=== PATIENT | male | born 1960 | race Caucasian/White ===

== ENCOUNTER 2025-01-06 13:01 | Inpatient (IN) | payer MEDICARE, BC, SELFPAY ==
[2025-01-06] VITALS (38 sets, daily range): BP systolic 139–245; BP diastolic 72–178; BMI 36.4; BMI 35.2
[2025-01-06 08:42] LABS: % Basophils 0.5 % (0-2); % Immature Granulocytes 0.4 % (0-0.5); % Lymphocytes 6.7 % (20.5-51.1); % Monocytes 6.7 % (1.7-9.3); % Neutrophils 83.7 % (42.2-75.2); Absolute Basophils 0.1 10^3/uL (0-0.2); Absolute Eosinophils 0.2 10^3/uL (0-0.7); Absolute Immature Granulocytes 0.1 10^3/uL (0-0.05); Absolute Lymphocytes 0.8 10^3/uL (1.2-3.4); Absolute Monocytes 0.8 10^3/uL (0.1-0.6); Absolute Neutrophils 9.4 10^3/uL (1.4-6.5); Mean Corp Hgb Conc. 34.9 g/dL (33.0-37.0); Mean Platelet Volume 10.6 fL (7.4-10.4); Nucleated Red Blood Cells % 0 % (-); Platelet Count 381 10^3/uL (130-400); Red Cell Dist. Width 13.3 % (11.5-14.5); White Blood Cell Count 11.2 10^3/uL (4.8-10.8)
[2025-01-06 09:10] LABS: ALT (SGPT) 17 U/L (0-50); AST (SGOT) 21 U/L (17-59); Alkaline Phosphatase 103 U/L (38-126); Blood Urea Nitrogen 13 mg/dl (9-20); Calcium 8.8 mg/dl (8.4-10.2); Carbon Dioxide 29 mmol/L (22-30); Chloride 105 mmol/L (98-107); Estimated Creatinine Clearance 86 ml/min; Glucose 145 mg/dl (70-99); Potassium 3.6 mmol/L (3.5-5.1); Sodium 138 mmol/L (135-145); Total Protein 5.5 g/dl (6.3-8.2); eGFR > 60.00
[2025-01-06 09:22] LABS: Troponin I 0.029 ng/ml
--- NOTE | 2025-01-06 10:41 | ED.GENMED ---
History of Present Illness
General
Chief Complaint: Chest Pain
Source: patient and spouse
Time Seen by Provider: 01/06/25 08:10
History of Present Illness
History of Present Illness:
This patient is a 64-year-old male who states that he has had progressive bilateral lower extremity into the last few months. He was prescribed Lasix but is admittedly noncompliant with this. He also admits intermittent compliance with his other
medications. His baseline blood pressure is measured at home is around 170s. 2 nights ago, he developed discomfort at the left scapula/lateral chest area. He describes it as 'sharp', lasted some time (cannot be more specific) and then resolved
completely. This was not associated with diaphoresis, dyspnea, neck pain, or other complaints. He has not had pain since that time. However, last night he reportedly seemed more tired than usual and had what he describes as a 'hot flash'. His
witnessed this and states that he appeared restless with a red warm face. Patient is now asymptomatic. He is here at the urging of his family members. He denies history of coronary disease.
Past History
Past History
ED Past Medical History: GERD, HTN, Hypercholesterolemia and NIDDM
ED Past Surgical History: Cholecystectomy and Other (Umbilical herniorrhaphy)
Social History
Tobacco: Former smoker
Alcohol: None
Drug: None
Personal:
Living: with family
Employment: Retired
Phy Exam
Physical Exam
Physical Exam:
GENERAL: Alert , in no apparent distress
EYE: pupils equal and reactive
NECK: Supple, no significant adenopathy.
ENT: o/p clr, mmm.
CARDIAC: Regular rate and rhythm .
LUNGS: Clear breath sounds bilaterally, no acute respiratory distress, no wheezes/rales/rhonchi
ABDOMEN: Soft, without focal tenderness, no r/g, no cvat
NEUROLOGICAL: Alert and oriented, no focal neuro deficits
SKIN: Warm and dry, skin intact.
MUSCULOSKELETAL: 1+ bilateral lower extremity edema, well perfused.
PSYCH: Normal and appropriate interaction.
Course
Orders/Labs/Results
Orders:
Orders
01/06/25 07:55
Electrocardiogram (*1) Urgent
Reason for Study: Chest Pain
EKG- Treatment ONCE
01/06/25 08:31
CMP [Comprehensive Metabolic Panel] Urgent
Complete Blood Count/With Diff Urgent
Troponin I Urgent
01/06/25 10:41
CT Chest Angio W/wo Iv Contras Urgent
Comment:
Reason For Exam: chest/back pain, htn, consider dissection
01/06/25 11:35
NT-proBNP Urgent
01/06/25 11:36
Furosemide [Lasix] 40 mg IV NOW STA
01/06/25 11:50
Metoprolol [Lopressor] 5 mg IV NOW STA
01/06/25 11:52
Aspirin 325 mg PO NOW STA
01/06/25 12:02
Add On- LAB Urgent
Tests Added?: TSH w/Reflex
Abnormal Lab Results
01/06/25
08:31
WBC 11.2 H 10^3/uL
(4.8-10.8)
MPV 10.6 H fL
(7.4-10.4)
Abs Immat Gran (auto) 0.1 H 10^3/uL
(0-0.05)
Absolute Neuts (auto) 9.4 H 10^3/uL
(1.4-6.5)
Absolute Lymphs (auto) 0.8 L 10^3/uL
(1.2-3.4)
Absolute Monos (auto) 0.8 H 10^3/uL
(0.1-0.6)
Neutrophils % 83.7 H %
(42.2-75.2)
Lymphocytes % 6.7 L %
(20.5-51.1)
Glucose 145 H mg/dl
(70-99)
Total Protein 5.5 L g/dl
(6.3-8.2)
Albumin 3.0 L g/dl
(3.5-5.0)
01/06/25 08:31
01/06/25 08:31
Vital Signs
Initial and Last Documented VS:
Initial Vital Signs
Temp Pulse Resp BP Pulse Ox
98.4 F 91 16 245/120 98
01/06/25 07:52 01/06/25 07:52 01/06/25 07:52 01/06/25 07:52 01/06/25 07:52
Last Documented Vital Signs
Temp Pulse Resp BP Pulse Ox
98.4 F 88 23 212/115 98
01/06/25 07:52 01/06/25 12:00 01/06/25 10:45 01/06/25 12:00 01/06/25 07:52
Update Note
Update Note:
Patient presents to the Emergency Department with ___chest and back pain
Number and Complexity of Problems Addressed at the Encounter
� Chronic conditions affecting care:
� Acute Exacerbation and/or Progression of Chronic Illness:
� Differential Diagnosis includes: But not limited to ACS, dissection, muscular pain, etc.
Amount and/or Complexity of Data to be Reviewed and Analyzed
� I performed an independent evaluation of and my interpretation is:
EKG: Read by me, normal sinus rhythm, LVH, no acute ischemia
CT:Jerry Martinez no dissection or central PE. Moderate left effusion, SSA or pneumonia LLL.
Xrays:
Laboratory Studies: Troponin 0.029 nonspecific, mild hyperglycemia
Other:
� Review of other/old records reveals:
� Clinical information was obtained by an independent historian: who is bedside
� Prescriptions/Medications Considered but not given:
� Further testing considered but not performed:
Risk of Complications and/or Morbidity or Mortality of Patient Management
� Social determinants of health affecting care:
� Discussion with other providers (PCP, Hospitalists, Consultants, etc):
� Escalation of care including admission/observation vs risk of discharge considered: 11:50 AM reassessment patient returned from CAT scan and noted to be tachypneic with mild hypoxia at 88% on room air. Nasal cannula applied
and pulse ox now within normal limits. Discussed with patient his findings including coronary artery calcifications, left ventricular hypertrophy, and new moderate pleural effusion. He is obviously a poorly controlled hypertensive, unclear if he
has had an extensive workup regarding hypertension in the past. Effusion could be infectious or malignant although I suspect more likely transudative and perhaps related to heart failure. Lasix ordered, aspirin ordered, Lopressor for blood
pressure ordered will reassess, hospitalist aware for admission, family updated
ED Attending Note
-
Portions of this chart may have been created with voice recognition software.� Occasional wrong word or��sound alike� substitutions may have occurred due to the inherent limitations of voice recognition software.
Discharge Plan
Departure
Patient Disposition: Admit
Date of Disposition: 01/06/25
Time of Disposition: 12:09
Presentation/result/management discussed w/ accepting MD/DO: Hospitalist
Prescriptions:
No Action
losartan [Cozaar] 100 MG tablet
100 mg PO DAILY
Mounjaro 10 mg/0.5 mL Pen Injector
10 mg SC WE
indomethacin 25 mg Capsule
25 mg PO BID
solifenacin [Vesicare] 5 mg Tablet
5 mg PO DAILY
rosuvastatin 10 mg tablet
10 mg PO DAILY
metoprolol succinate 50 mg tablet extended release 24 hr
50 mg PO DAILY
meloxicam 15 mg tablet
15 mg PO DAILY
metformin 1,000 mg tablet
1,000 mg PO BID
Referrals:
Nova Torres MD [Family Provider, Family Practice]
Interventions
Interventions:
*Risk Screen - Suicide Last Done: 01/06/25 07:52
*General Assessment Last Done: 01/06/25 08:20
*Neglect/Abuse Screening Last Done: 01/06/25 07:52
*ED- Fall Risk Assessment Last Done: 01/06/25 08:20
*ED COVID-19 Vaccine History Last Done: 01/06/25 08:20
ED- Cardiac Assessment Last Done: 01/06/25 08:29
Discharge Date and Time
Print Language: UZBEK
[2025-01-06] MEDS: LASIX 40 MG IV ×2 (11:56→16:42)
[2025-01-06] MEDS: ASPIRIN 325 MG PO (11:56)
[2025-01-06] MEDS: LOPRESSOR 5 MG IV (12:00)
--- NOTE | 2025-01-06 12:34 | HPS.HSE ---
Family Physician
-
Family Physician: Nova Torres MD
Chief Complaint
-
Chest / Back Pain and Uncontrolled Blood Pressure
History of Present Illness
Patient is a 64 y/o male past medical history of hypertension, hyperlipidemia, and diabetes mellitus who presents with chest/back pain and uncontrolled blood pressure. Patient reports worsning lower extremity for the past several months. He report
his blood pressure has not been well controlled. He notes his PCP started him on losartan/HCTZ but he only took it one time as it made him urinate too much. A few days ago he had an episodes of left chest / back pain which lasted about an hours.
Today he developed worsening shortness of breath.
Medical History
Past Medical History
Past Medical History: Reports Other
Additional Past Medical History:
Essential Hypertension
Hyperlipidemia
Diabetes Mellitus, Type II
Obesity due to Escess Calories
Past Surgical History: Reports Other
Additional Past Surgical History:
Cholecystectomy
Hernia Repair
Social History
Tobacco: Former Smoker (Previous Cigars)
Alcohol: None
Personal:
Living: With Family
Family History
Family History: Not pertinent
Allergies / Home Medications
Allergies reflects when Allergies were last updated in [facility].
Home Medications with original date entered in [facility]
Allergy/Medication List:
Allergies
Allergy/AdvReac Type Severity Reaction Status Date / Time
No Known Allergies Allergy Verified 01/06/25 07:55
Home Medications
meloxicam 15 mg tablet 15 mg PO DAILY 01/06/25
metformin 1,000 mg tablet 1,000 mg PO BID 01/06/25
metoprolol succinate 50 mg tablet,extended release 24 hr 50 mg PO DAILY 01/06/25
rosuvastatin 10 mg tablet 10 mg PO DAILY 01/06/25
solifenacin 5 mg tablet (Vesicare) 5 mg PO DAILY 01/06/25
tadalafil 5 mg tablet 5 mg PO DAILY 01/06/25
tirzepatide 10 mg/0.5 mL subcutaneous pen injector (Mounjaro) 10 mg SC WE 01/06/25
Review of Systems
-
History Source: Patient
A 12 point ROS was completed and negative except as noted: Yes
Constitutional: Denies Fever or Chills
Respiratory: Reports See HPI
Cardiac: Reports See HPI
Abdomen/GI: Denies Abdominal Pain, Nausea, Vomiting, Diarrhea or Constipated
: Reports Other (Urinary Hesitancy)
Physical Exam
Vital Signs
Vital Signs
Temp Pulse Resp BP Pulse Ox
98.4 F 88 23 212/115 98
01/06/25 07:52 01/06/25 12:00 01/06/25 10:45 01/06/25 12:00 01/06/25 07:52
Physical Exam
General: Comfortable, Conversant and Obese
HEENT: NormoCephalic, Anicteric, Moist mucous membranes, Atraumatic and Oxygen (Nasal Cannula)
Respiratory: Clear, Non Labored Respirations and Decreased Breath Sounds (Left base)
Cardiac: S1/S2, Regular Rhythm and Murmur
GI: Soft, Non Tender and Other (Protuberant)
Rectal: Deferred by Provider
Genito-urinary: Clear Urine
Musculoskeletal: No Clubbing, No Cyanosis and Other (+4 Pitting Edema bilateral lower extremities)
Skin: Warm and Dry; No Rash
Neuro: Awake, Alert, Oriented and Nonfocal/grossly intact
Psych: Calm
Laboratory Results
-
01/06/25 08:31
01/06/25 08:31
Laboratory Results
Total Bilirubin 1.0 mg/dl (0.2-1.3) 01/06/25 08:31
AST 21 U/L (17-59) 01/06/25 08:31
ALT 17 U/L (0-50) 01/06/25 08:31
Alkaline Phosphatase 103 U/L (38-126) 01/06/25 08:31
Troponin I 0.029 ng/ml 01/06/25 08:31
Data Reviewed
-
CT Scan: Report Reviewed by me
Lab Data: Labs Reviewed by me
Impression/Plan
-
Acute Heart Failure, unknown type
-Consult Cardiology
-Continue Lasix 40mg IV Daily
-Check Echocardiogram
-Monitor Is&Os and Daily Weights
Hypertensive Emergency
-Start nitroglycerin infusion
-Resume losartan 100mg Daily
-Continue metoprolol succinate 50mg Daily as prior to admission
-Troponin is borderline - Continue to trend
-Check TSH
Left Pleural Effusion
-Consult Interventional Radiology for diagnostic and therapeutic thoracentesis
Diabetes Mellitus, Type II
-Check HgbA1c
-Hold metformin
-Monitor sugars and continue coverage insulin
Obesity due to Excess Calories
-Encourage weight loss
-Affects all aspects of care
Obstructive Sleep Apnea
-Continue CPAP
Urinary Hesitancy, suspect BPH
-Start Flomax
-Monitor bladder scans
DVT proph: Lovenox
Code Status: Full Code
[2025-01-06] MEDS: NITROGLYCERIN PREMIX 250 IV (12:39)
--- NOTE | 2025-01-06 12:56 | W.PN.UPDATE ---
Update Note
Progress Note Update
This is an addendum to the H&P written by Crystal Garcia on 01/06/2025.� Patient seen and examined independently with PA.
64-year-old male past medical history of hypertension, diabetes, hypercholesteremia, GERD, presenting with left scapular/lateral chest discomfort.� Also progressive lower extremity edema the past few months.��He was previously on Losartan and
started on HCTZ but stopped taking it few months ago due to increased urination.�
Initial blood pressure 245/120.
EKG shows normal sinus rhythm, LVH, no ischemic changes.
Troponin of 0.029.
CTA chest shows no aortic dissection or pulmonary embolism.� There is moderate left pleural effusion.
Patient with hypertensive emergency associate with chest pain and evidence of moderate left pleural effusion likely secondary to heart failure.
Patient was given 325 mg aspirin, 40 IV Lasix, 5 mg Lopressor with improvement in blood pressure to 212/115.�
Start nitroglycerin drip and resume Losartan.�Cardiac BNP pending.� Trend troponins.� Check echocardiogram.� Continue Lasix.� IR consulted for thoracentesis.� Cardiology consulted.
[2025-01-06 13:09] LABS: NT-proBNP 7390 pg/ml; Troponin I 0.027 ng/ml
--- NOTE | 2025-01-06 13:11 | CON.CAR ---
Addendum entered and electronically signed by Luann Ferrara MD 01/06/25 15:43:
I saw and examined the patient.
The PRINCIPAL TRAINER's note was reviewed and I agree with the note.
Comment: 64 yo male (patient of Dr. Raines) with difficult to control hypertension, non-insulin dependent diabetes mellitus, h/o 'right eye stroke' likely retinal artery occlusion, hyperlipidemia, coronary artery calcification on CT scan, JOHNSON,
GERD, obesity and possible renal artery stenosis (abnormal Doppler velocities, artifact on CT, negative MRA), who presents to the ER with c/o left scapular and chest pain with increased LE edema x 2-3 months. He is noted to have BP c/w hypertensive
emergency and acute decompenstated heart failure with unknown ef. It seems he has had multiple medications adjustments without acheiving adequate bp control. He has noted le edema but only began to feel sob today. He wears a cpap so denies orthopnea
or pnd. On exam, he is alert and oriented x 3, JVP is up to the level of the earlobe at 90 degrees, lungs are decreased on the right less than the left abdomen is obese and protuberant, extremities are warm but 2+ pitting edema up into the legs.
EKG is normal sinus rhythm with LVH and strain pattern. Chest CT examined shows impressively large left pleural effusion with compressive atelectasis, labs show elevated proBNP at 7390, troponin 0.029-0.027, creatinine 1.1. Overall, he presents in
acute heart failure with unknown ejection fraction, hypertensive emergency, obesity, diabetes. The source of his decompensated heart failure is likely his labile hypertension that has been poorly controlled. Will transition metoprolol to
carvedilol. Continue nitro drip for now, this can be transition to GDMT as indicated pending echocardiogram result. Agree with thoracentesis today for not only symptomatic relief but diagnostic relief. Will also update his renal artery ultrasound
given the report in the past, this may be affecting her ability to control his blood pressure. Case management consult for GDMT pricing. Will place heart failure team education consult. Overall I told him to expect all of his medications to
change, lifestyle must change to include daily weights, sodium restriction and fluid restriction. Will follow.
Original Note:
Consultation
Consultation Request
Date/Time Consultation Requested: 01/06/25 12:30p
Date/Time Consultation Performed: 01/06/25 2p
Requesting Provider: Crystal Barr PA-C
Performing Provider: JENN Jones for Dr. Ferrara
Reason for Consultation: HTN emergency, LE edema
Medical History
-
Chief Complaint: back pain, LE edema
History of Present Illness:
Mr. Martinez is a 64 yo male (patient of Dr. Raines) with difficult to control hypertension, non-insulin dependent diabetes mellitus, h/o 'right eye stroke' likely retinal artery occlusion, hyperlipidemia, coronary artery calcification on CT scan, JOHNSON,
GERD, obesity and possible renal artery stenosis (abnormal Doppler velocities, artifact on CT, negative MRA), who presents to the ER with c/o left scapular and chest pain with increased LE edema x 2-3 months. HTN emergency on arrival 245/120 in the
ER, now on IV NTG drip admitted to hospitalist service. CT chest with moderate left pleural effusion, no dissection, no PE. We are consulted for HTN emergency and acute HFpEF. He was last seen by Dr. Raines in 04/2022, lost to follow up. His PCP
has been adjusting his BP medications. 10/2024 she started Losartan/HCTZ 100mg/25mg but he only took one dose then stopped HCTZ and resumed Losartan 100mg daily. She also started Toprol 50mg daily.
Past Medical History
Past Medical History: Other (as above)
Past Surgical History: Cholecystectomy and Other (deviated septum, hernia)
Social History
Tobacco: Former Smoker
Alcohol: None
Living: With Family
Employment: Retired
Family History
Family History: Reviewed & Not Pertinent
Allergies / Home Medications
Allergy/AdvReac Type Severity Reaction Status Date / Time
No Known Allergies Allergy Verified 01/06/25 07:55
�Medication �Instructions �Recorded �Confirmed �Type
meloxicam 15 mg tablet 15 mg PO DAILY 01/06/25 01/06/25 History
metformin 1,000 mg tablet 1,000 mg PO BID 01/06/25 01/06/25 History
metoprolol succinate 50 mg 50 mg PO DAILY 01/06/25 01/06/25 History
tablet,extended release 24 hr
rosuvastatin 10 mg tablet 10 mg PO DAILY 01/06/25 01/06/25 History
solifenacin 5 mg tablet (Vesicare) 5 mg PO DAILY 01/06/25 01/06/25 History
tadalafil 5 mg tablet 5 mg PO DAILY 01/06/25 01/06/25 History
tirzepatide 10 mg/0.5 mL 10 mg SC WE 01/06/25 01/06/25 History
subcutaneous pen injector
(Sanjuana)
Review of Systems
-
History Source: Patient
All other systems: Negative unless noted
Physical Exam
Vital Signs
Temp Pulse Resp BP Pulse Ox
98.4 F 88 23 212/115 98
01/06/25 07:52 01/06/25 12:00 01/06/25 10:45 01/06/25 12:00 01/06/25 07:52
Lab Results
01/06/25 08:31
01/06/25 08:31
Troponin I 0.027 ng/ml 01/06/25 12:01
Vbp-L-Vujvpecoyin Pept 7390 pg/ml 01/06/25 12:01
Physical Exam
General: Well Developed, Well Nourished and No Apparent Distress
HEENT: Normocephalic, Anicteric and Moist Mucous Membranes
Respiratory: Crackles (right base), Non Labored Respirations and Other (diminished left middle and base)
Cardiac: S1/S2, Regular Rhythm and Peripheral Edema (+2 pitting b/l feet/LE)
Breast: Deferred by me
GI: Soft, Non Tender and Normal Bowel Sounds
Rectal: Deferred by Provider
Genito-urinary: No Costovertebral Tender and Clear Urine
Musculoskeletal: No Clubbing and No Cyanosis
Skin: Warm and Dry
Neuro: AO x 3
Psych: Calm
Impression / Plan
-
HTN emergency - acute.
- continue IV NTG drip today.
- IV Lasix 40mg BID.
- start Coreg 12.5mg BID, continue Losartan 100mg daily, stop Toprol 50mg daily.
- check renal artery u/s.
- check echo.
CHF - acute, HFpEF based on echo in 2020 with EF 55-60%
- IV Lasix 40mg BID.
- daily weights.
- check echo.
- if EF reduced, then will switch Losartan to Entresto.
- case management to hull [id number].
HLD - continue Crestor.
JOHNSON - stable on CPAP, continue.
DM - on Mounjaro for 1 month, dosed today.
- per hospitalist.
Data Reviewed
-
EKG: Report Reviewed by me (SR 91 bpm LVH with repolarization abn)
CT Scan: Report Reviewed by me (chest angio: No evidence of thoracic aortic dissection, no PE, moderate left pleural effusion, Airspace consolidation within LLL and lingular segment, which may be related to compressive atelectasis or pneumonia,
Moderate coronary arterial calcification)
Medical Tests (Nuc Med, Echo etc): Report Reviewed by me (echo 08/2020: EF 55-60%, mild cLVH, no valve disease, normal pasp)
Labs: Labs Reviewed by me
Old Records: Reviewed
[2025-01-06 13:48] LABS: LDH 229 U/L (120-246)
--- NOTE | 2025-01-06 15:07 | EDRN ---
Call to [facility]_ they tell me to send the pt to his room and they will call later for him.
[2025-01-06 15:27] LABS: INR 1.04; PT 14.1 Sec (11.4-14.6)
--- NOTE | 2025-01-06 15:36 | RESPNOTE ---
patient seen for cpap waiver. currently cpap machine at home, spouse to return home around dinner to pick up truck driver and bring in for use. patient agreeable to waiver, to be signed when machine is present.
--- NOTE | 2025-01-06 16:03 | CM ---
Priced the following medications thru insurance, [facility]/ [phone].
Entrestro- $10/mo
Farxiga- $10/mo
Jardiance- $10/mo
TT to JENN to update
--- NOTE | 2025-01-06 16:15 | PTCARENOTE ---
Pt arrived from ER to IVU approx 1500. Pt denies any chest discomfort at this time. BP elevated, pt on NTG which is being titrated to keep SYS BP < 160. NTG received on 25 mcg/min, presently at 35 mcg/min. Echo done at bedside. PT is SR as per
monitor. O2 2lnc, O2 sat=95%. L lung sounds are diminished on L side. Lasix given as ordered, and pt voided mod amts of yellow urine. Pt able to ambulate to chair with min assistance. Pt to have a L thoracentesis this evening in IR. Call valerio at
pt's side.
[2025-01-06 16:46] LABS: Glucose - Point of Care 107 mg/dl (70-99)
[2025-01-06] MEDS: NOVOLOG FLEXPEN-LOW RESISTANCE SC (16:49)
--- NOTE | 2025-01-06 18:55 | PTCARENOTE ---
L thoracentesis not done this evening yet. IR called and recording states that they are now closed. Dr Salas updated and she said that it will be done tomorrow, and pt can eat his dinner. His dinner heated up for him and pt ate 100%. NTG drip
increased to 50 mcg/min, titrating to keep sys BP <160. O2 sat= 94% on 2L nc, HR 91 SR. Pt voiding yellow urine in urinal. Pt's updated also. Call valerio at pt's side.
[2025-01-06] MEDS: LOVENOX 40 MG SC (19:00)
[2025-01-06] MEDS: COREG 12.5 MG PO (19:46)
[2025-01-06] MEDS: TYLENOL 1000 MG PO (20:37)
[2025-01-06 22:42] LABS: Glucose - Point of Care 137 mg/dl (70-99)
--- NOTE | 2025-01-06 22:47 | PTCARENOTE ---
Received patient at change of shift. SR on the monitor, HR in the 80s. Nitro running as per protocol, see documentation. Patient complains of 2/10 neck pain, LEARNING SOLUTIONS SPECIALIST notified, Tylenol ordered and administered. CPAP on overnight. Call vaelrio within reach.
[2025-01-07] VITALS (32 sets, daily range): BP systolic 88–173; BP diastolic 55–93; BMI 35.4
[2025-01-07] MEDS: TYLENOL 650 MG PO ×2 (02:17→10:15)
[2025-01-07 03:35] LABS: ALT (SGPT) 16 U/L (0-50); AST (SGOT) 20 U/L (17-59); Albumin 2.7 g/dl (3.5-5.0); Alkaline Phosphatase 90 U/L (38-126); Blood Urea Nitrogen 18 mg/dl (9-20); Calcium 8.5 mg/dl (8.4-10.2); Carbon Dioxide 27 mmol/L (22-30); Chloride 102 mmol/L (98-107); Direct Bilirubin 0.4 mg/dl (0.0-0.4); Estimated Creatinine Clearance 67 ml/min; Glucose 145 mg/dl (70-99); HDL Cholesterol 30 mg/dl; LDL Cholesterol, Calculated 79 mg/dl; Magnesium 1.7 mg/dl (1.6-2.3); Potassium 3.5 mmol/L (3.5-5.1); Sodium 135 mmol/L (135-145); Total Bilirubin 1.2 mg/dl (0.2-1.3); Total Cholesterol 130 mg/dl (50-199); Total Protein 4.9 g/dl (6.3-8.2); Triglyceride 105 mg/dl (10-149); Very Low Density Lipoprotein 21 mg/dl (0-30); eGFR 55.43
[2025-01-07 09:19] LABS: Body Fluid pH 7.47
[2025-01-07 09:37] LABS: Body Fluid Amylase 40 U/L; Body Fluid Glucose 142 mg/dl; Body Fluid LDH 414 U/L; Body Fluid Protein 3.2 g/dl; Body Fluid Triglycerides < 30 mg/dl
[2025-01-07 10:04] LABS: Body Fluid Mononuclear 52.5 %; Body Fluid Polymorphonuclear 47.5 %; Body Fluid WBC 6069 /CUMM
[2025-01-07 10:06] LABS: Glycohemoglobin (HgbA1c) 6.9 % (4.0-5.6)
[2025-01-07 10:13] LABS: Body Fluid Second Tech AMA
[2025-01-07] MEDS: CRESTOR 10 MG PO (10:14)
[2025-01-07] MEDS: FLOMAX 0.4 MG PO (10:15)
[2025-01-07] MEDS: LOW STRENGTH ASPIRIN 81 MG PO (10:15)
[2025-01-07] MEDS: COREG 12.5 MG PO ×2 (10:15→11:38)
[2025-01-07 10:22] LABS: Glucose - Point of Care 125 mg/dl (70-99)
[2025-01-07] MEDS: NOVOLOG FLEXPEN-LOW RESISTANCE SC ×2 (10:22→12:33)
--- NOTE | 2025-01-07 11:06 | W.PN.HOSP.TC ---
Addendum entered and electronically signed by Cuong Mehta MD 01/07/25 13:15:
Addendum
Suraj
Could be post renal or renal
He received IV dye
Will hold Lasix, Losartan for now
will check bladder scan
recheck BMP in am
End
Original Note:
Today's Communication/Plan
-
Will add melatonin for HS PRN
Titrate up oral BP medications to wean off nitro gtt
Assessment / Plan
Assessment / Plan
Physical Exam
General: Comfortable, Conversant and Obese
HEENT: Normocephalic, Anicteric, Moist mucous membranes, Atraumatic and Oxygen (Nasal Cannula)
Respiratory: Clear, Non Labored Respirations and better Breath Sounds left side.
Cardiac: S1/S2, Regular Rhythm and Murmur
GI: Soft, Non Tender and Other (Protuberant)
Genito-urinary: Clear Urine
Musculoskeletal: No Clubbing, No Cyanosis and Other (+4 Pitting Edema bilateral lower extremities)
Skin: Warm and Dry; No Rash
Neuro: Awake, Alert, Oriented and Nonfocal/grossly intact
Psych: Calm
# Acute new onset Heart Failure with preserved EF
-Continue Lasix 40mg IV to BID
- Echo LVH with LVEF 55 %.
-Monitor Is&Os and Daily Weights
Appreciate cardiology input
# Hypertensive Emergency
- to try to wean off nitroglycerin infusion
-Resumed losartan 100mg Daily
-Changed to Coreg, increase dose
- Normal TSH
- Add PRN hydralazine
# Left Pleural Effusion
- s/p 2 liters thoracentesis, no Pneumothorax post procedure. Good air on auscultation.
Diabetes Mellitus, Type II
c/w current regimen
HgbA1c 6.9
-Hold metformin
Patient is recently on Mounjaro and lost weight
-Monitor sugars and continue coverage insulin
# Diabetic neuropathy
#Advanced osteoarthritis, mostly left knee. Patient was taking meloxicam daily for left knee prior to planned surgery/replacement per orthopedic
Advised to admit avoid nonsteroidal anti-inflammatory drugs due to tendency for uncontrolled blood pressure and sodium retention.
#Obesity due to Excess Calories
-Encourage weight loss
Patient is recently on Mounjaro and lost weight , he denies GI symptoms, reported lost 10 Ib.
Obstructive Sleep Apnea
-Continue CPAP
Urinary Hesitancy,
He follows with urologist.
- Started on Vesicare
-Monitor bladder scans
DVT proph: Lovenox
Code Status: Full Code
Total time spent to see the patient, examine the patient, review data and lab results, discuss treatment plan with patient and nursing staff around 55 minutes
Anticipated Discharge: 24 - 48 hours
Subjective/Interval History
-
Date of Service: January 07, 2025
No chest pain
No sob
No abd pain
Objective Data
-
Labs:
Laboratory Results
01/07/25
02:50
Sodium 135
Potassium 3.5
Chloride 102
Carbon Dioxide 27
BUN 18
Creatinine 1.4 H
Glucose 145 H
Calcium 8.5
Total Bilirubin 1.2
AST 20
ALT 16
Alkaline Phosphatase 90
Vital Signs:
Vital Signs
Temp Pulse Resp BP Pulse Ox
98 F 86 16 151/67 92
01/07/25 08:15 01/07/25 10:15 01/07/25 08:45 01/07/25 10:11 01/07/25 10:26
I&O
01/06/25 01/07/25 01/08/25
06:59 06:59 06:59
Intake Total 403.8 / 403.8 400 / 400
Output Total 3245 / 3245 250 / 250
Balance -2841.2 / -2841.2 150 / 150
--- NOTE | 2025-01-07 13:05 | CM ---
CM following for DC planning needs.
Met w/ patient at bedside to complete initial assessment.
Pt. resides w/ spouse in a private, [facility]. Pt. is functionally indep. w/ ADLs, mobility without the use of any assisted device.
Pt. has CPAP at home, supplied by [facility].
Pt. has RX plan and uses [facility] for prescription needs.
Reviewed estimated cost of Eliseo Escobedo + Entresto. Pt. aware and agreeable to cost.
Advised him to check with MD regarding necessity of these medications.
Antic. DC to home without needs once medically stable.
CM to follow.
--- NOTE | 2025-01-07 13:12 | W.PN.CD ---
Addendum entered and electronically signed by Luann Ferrara MD 01/07/25 15:15:
I saw and examined the patient.
The MANUFACTURING MECHANIC's note was reviewed and I agree with the note.
Comment: He is feeling better after thoracentesis. He does have a slightly PAN and has not urinated--lasix was held this am. On exam, elevated jvp, lungs bibasilar rales, 2+ pitting edema. HTN emergency improving, losartan h for PAN, nitro gtt
weaning off, continue Coreg, eventual GDMT. HFpEF acute, remains massively volume overloaded, lasix this afternoon. PAN; likely due to contrast, ?urinary retention. Bladder scan underway.
Will follow.
Original Note:
Today's Communication / Plan
-
continue IV Lasix, monitor daily weights.
wean IV NTG drip.
Impression / Plan
-
HTN emergency - acute on chronic HTN.
- improved with meds. wean down NTG drip.
- continue IV Lasix 40mg BID.
- continue Coreg increased to 25mg BID today.
- Losartan on hold due to elevated renal function.
- renal artery u/s w/o stenosis.
- echo 01/06/25 EF 55%, moderate cLVH.
HFpEF - acute on chronic.
- continue IV Lasix 40mg BID.
- weight down 8 lbs overnight, continue to monitor.
- echo EF 55%, mild cLVH.
- SGLT2i cost is $10, will start when renal function improved.
Pleural effusion - left s/p thoracentesis with 2L removed.
HLD - continue Crestor.
JOHNSON - stable on CPAP, continue.
DM - on Mounjaro for 1 month, dosed today.
- per hospitalist.
Physical Exam
Vital Signs/Labs
Vital Signs
Temp Pulse Resp BP Pulse Ox
98.7 F 78 16 128/59 93
01/07/25 11:50 01/07/25 13:00 01/07/25 11:50 01/07/25 13:00 01/07/25 11:50
01/06/25 01/07/25 01/08/25
06:59 06:59 06:59
Actual Weight 253 lb 12.033 oz
01/06/25 08:31
01/07/25 02:50
PT 14.1 Sec (11.4-14.6) 01/06/25 15:02
INR 1.04 01/06/25 15:02
Magnesium 1.7 mg/dl (1.6-2.3) 01/07/25 02:50
Triglycerides 105 mg/dl (10-149) 01/07/25 02:50
LDL Cholesterol, Calc 79 mg/dl 01/07/25 02:50
VLDL Cholesterol, Calc 21 mg/dl (0-30) 01/07/25 02:50
HDL Cholesterol 30 mg/dl 01/07/25 02:50
01/06/25
12:01
Trh-F-Vhrobfimhps Pept 7390
LAB Results
01/06/25 01/06/25 01/06/25
08:31 12:01 18:15
Troponin I 0.029 0.027 Cancelled
Physical Exam
Constitutional: No acute distress and Comfortable
EENT: Anicteric and Moist mucous membranes
Cardiovascular: Rhythm & rate is regular and Pedal edema present (+2 pitting b/l LE)
Respiratory: Respiratory effort normal and Other (mild rales b/l)
GI: Soft, Non tender and Normal bowel sounds
Neuro/Psych: AO x 3
Other: Skin (warm, dry)
Data Reviewed
-
Date of Service: January 07, 2025
Medical Decision Making: Reviewed Test Results
EKG: Tracing Personally Visualized and interpreted
Echo: Report Reviewed by me
Labs: Labs Reviewed by me
Old Records: Reviewed
--- NOTE | 2025-01-07 14:46 | PTCARENOTE ---
Pt w/ no urine output for 6 hours. Bladder scanned pt for 193cc. Janine CAM aware.
[2025-01-07] MEDS: LASIX 40 MG IV (15:47)
[2025-01-07 16:19] LABS: Glucose - Point of Care 151 mg/dl (70-99)
[2025-01-07] MEDS: TYLENOL 1000 MG PO (16:19)
[2025-01-07] MEDS: NOVOLOG FLEXPEN-LOW RESISTANCE 1 UNITS SC (16:20)
[2025-01-07] MEDS: LOVENOX 40 MG SC (18:18)
[2025-01-07] MEDS: COREG 25 MG PO (20:51)
[2025-01-07] MEDS: ULTRAM 25 MG PO (20:52)
[2025-01-07 22:13] LABS: Glucose - Point of Care 169 mg/dl (70-99)
[2025-01-08] VITALS (8 sets, daily range): BP systolic 121–161; BP diastolic 48–75; BMI 35.0
[2025-01-08] MEDS: TYLENOL 1000 MG PO ×2 (04:03→16:07)
--- NOTE | 2025-01-08 04:32 | PTCARENOTE ---
Pt NSR on monitor. C/o chronic b/l legs and back pain. PRN meds given per order. pt OOB x 1 assist. post void residual 73 ml. pt using his own CPAP at . Call valerio in reach
[2025-01-08 04:39] LABS: Hematocrit 37.3 % (39.0-52.0); Hemoglobin 13.1 g/dL (13.0-18.0); Mean Corp Hgb Conc. 35.1 g/dL (33.0-37.0); Mean Corpuscular Hgb 29.7 pg (27.0-31.0); Mean Corpuscular Volume 84.6 fL (80.0-94.0); Mean Platelet Volume 10.8 fL (7.4-10.4); Platelet Count 359 10^3/uL (130-400); Red Blood Cell Count 4.41 10^6/uL (4.70-6.10); Red Cell Dist. Width 13.2 % (11.5-14.5); White Blood Cell Count 10.4 10^3/uL (4.8-10.8)
[2025-01-08 05:07] LABS: Blood Urea Nitrogen 27 mg/dl (9-20); Calcium 8.3 mg/dl (8.4-10.2); Carbon Dioxide 28 mmol/L (22-30); Chloride 98 mmol/L (98-107); Estimated Creatinine Clearance 47 ml/min; Glucose 120 mg/dl (70-99); Potassium 3.4 mmol/L (3.5-5.1); Sodium 135 mmol/L (135-145); eGFR 36.13
[2025-01-08] MEDS: KCL 40 MEQ PO (05:48)
[2025-01-08] MEDS: PROCARDIA XL (EXTENDED RELEASE) 30 MG PO (07:49)
[2025-01-08] MEDS: CRESTOR 10 MG PO (07:49)
[2025-01-08] MEDS: COREG 25 MG PO ×2 (07:49→20:21)
[2025-01-08] MEDS: LOW STRENGTH ASPIRIN 81 MG PO (07:49)
[2025-01-08] MEDS: FLOMAX 0.4 MG PO (07:49)
[2025-01-08] MEDS: NOVOLOG FLEXPEN-LOW RESISTANCE 1 UNITS SC ×3 (07:58→16:04)
[2025-01-08 07:59] LABS: Glucose - Point of Care 167 mg/dl (70-99)
--- NOTE | 2025-01-08 08:51 | PTCARENOTE ---
Pt w/ 10.75 sec. run of VT w/ HR in the 120s and broke back to SR in the 70s. Pt asymptomatic. BP 149/67. Alem CAM aware.
--- NOTE | 2025-01-08 10:26 | W.CON.NEPH ---
Consultation
-
Date/Time Consultation Requested: January 08, 2025 at 7 AM
Date/Time Consultation Performed: January 08, 2025 at 9:30 AM
Requesting Provider: Dr. Mehta
Performing Provider: Dr. Metcalf
Reason for Consultation: Acute kidney injury
Medical History
-
Chief Complaint: Acute kidney injury
History of Present Illness:
64 y/o male past medical history of hypertension, hyperlipidemia, and diabetes mellitus who presents with chest/back pain and uncontrolled blood pressure. Patient reports worsning lower extremity for the past several months. He report his blood
pressure has not been well controlled. He notes his PCP started him on losartan/HCTZ but he only took it one time as it made him urinate too much
Renal consult for acute kidney injury creatinine of 2 with a normal baseline 1.1 on admission.
He is status postthoracentesis 2 L on the left.
Presented with a blood pressure over 200 systolic and over 100 diastolic
Past Medical History
past medical history of hypertension, hyperlipidemia, and diabetes mellitus
Social History
Tobacco: Non-Smoker
Alcohol: None
Family History
No renal disease
Family History: Not Pertinent
Allergies / Home Medications
Allergy/AdvReac Type Severity Reaction Status Date / Time
No Known Allergies Allergy Verified 01/06/25 07:55
�Medication �Instructions �Recorded �Confirmed �Type
meloxicam 15 mg tablet 15 mg PO DAILY 01/06/25 01/06/25 History
metformin 1,000 mg tablet 1,000 mg PO BID 01/06/25 01/06/25 History
metoprolol succinate 50 mg 50 mg PO DAILY 01/06/25 01/06/25 History
tablet,extended release 24 hr
rosuvastatin 10 mg tablet 10 mg PO DAILY 01/06/25 01/06/25 History
solifenacin 5 mg tablet (Vesicare) 5 mg PO DAILY 01/06/25 01/06/25 History
tadalafil 5 mg tablet 5 mg PO DAILY 01/06/25 01/06/25 History
tirzepatide 10 mg/0.5 mL 10 mg SC WE 01/06/25 01/06/25 History
subcutaneous pen injector
(Sanjuana)
Review of Systems
-
No chest pain or shortness of breath/lower extremity edema
All other systems: Negative unless noted
Physical Exam
Vital Signs
Vital Signs
Temp Pulse Resp BP Pulse Ox
98.1 F 71 18 149/67 94
01/08/25 07:48 01/08/25 07:46 01/08/25 07:48 01/08/25 07:46 01/08/25 08:30
Lab Results
WBC 10.4 10^3/uL (4.8-10.8) 01/08/25 03:50
RBC 4.41 10^6/uL (4.70-6.10) L 01/08/25 03:50
Hgb 13.1 g/dL (13.0-18.0) 01/08/25 03:50
Hct 37.3 % (39.0-52.0) L 01/08/25 03:50
Plt Count 359 10^3/uL (130-400) 01/08/25 03:50
Sodium 135 mmol/L (135-145) 01/08/25 03:50
Potassium 3.4 mmol/L (3.5-5.1) L 01/08/25 03:50
Chloride 98 mmol/L (98-107) 01/08/25 03:50
Carbon Dioxide 28 mmol/L (22-30) 01/08/25 03:50
BUN 27 mg/dl (9-20) H 01/08/25 03:50
Creatinine 2.0 mg/dL (0.7-1.3) H 01/08/25 03:50
eGFR 36.13 01/08/25 03:50
Glucose 120 mg/dl (70-99) H 01/08/25 03:50
Calcium 8.3 mg/dl (8.4-10.2) L 01/08/25 03:50
Haf-D-Seerngcwhdk Pept 7390 pg/ml 01/06/25 12:01
Albumin 2.7 g/dl (3.5-5.0) L 01/07/25 02:50
Physical Exam
General no acute distress
HEENT no cephalic atraumatic extraocular muscle intact no scleral icterus no JVD neck supple
lungs diffuse crackles with decreased breath sounds on the left
heart regular S1-S2 positive
abdomen soft nontender positive bowel sounds
extremities no edema pulses present bilateral
Neurologically nonfocal alert and oriented x 3
Skin no lesions no abrasions no petechiae
Psych normal affect no bizarre behavior
Data Reviewed
-
Radiology: Image Personally Visualized and interpreted
CT Scan: Image Personally Visualized and interpreted
Ultrasound: Image Personally Visualized and interpreted
Assessment/Plan
-
64 y/o male past medical history of hypertension, hyperlipidemia, and diabetes mellitus who presents with chest/back pain and uncontrolled blood pressure. Patient reports worsning lower extremity for the past several months. He report his blood
pressure has not been well controlled. He notes his PCP started him on losartan/HCTZ but he only took it one time as it made him urinate too much
Renal consult for acute kidney injury creatinine of 2 with a normal baseline 1.1 on admission.
He is status postthoracentesis 2 L on the left.
Presented with a blood pressure over 200 systolic and over 100 diastolic
Impression.
Acute kidney injury creatinine of 2 with a baseline creatinine 1.1 on admission
Hypertensive urgency
Pleural effusion
Diastolic dysfunction
Obesity
Diabetes
Plan.
Acuity multifactorial IV contrast and hypertensive urgency most likely.
Hold losartan
Hold Lasix
Maintain blood pressure at current 140 systolic.
Renal duplex no evidence of renal artery stenosis although limited study.
This is unlikely secondary hypertension.
Check urine indices
Renal dose all medications
A.m. labs
--- NOTE | 2025-01-08 10:28 | W.PN.CD ---
Addendum entered and electronically signed by Luann Ferrara MD 01/08/25 15:44:
I saw and examined the patient.
The BRAKE OPERATOR HELPER's note was reviewed and I agree with the note.
Comment: He is feeling better but still a bit sob and fatigued, walking the hallway. Renal function has increased to 2 and his uop is dropped. He has reg rate and rhythm. lungs cta, le edema 2+ pitting edema. He remains volume overloaded. But
with PAN holding lasix, I anticapate more diuresis will be needed with renal recovery. tele with svt with abberation, continue bb and continue ravi monitor.
Original Note:
Today's Communication / Plan
-
continue Coreg and Nifedipine.
nephrology managing PAN.
Impression / Plan
-
HTN emergency - acute on chronic HTN.
- improved with meds. NTG drip off and tolerating Coreg and Nifedipine.
- IV Lasix 40mg BID on hold due to PAN.
- Losartan on hold due to elevated renal function.
- renal artery u/s w/o stenosis.
- echo 01/06/25 EF 55%, moderate cLVH.
HFpEF - acute on chronic.
- IV Lasix 40mg BID held due to PAN.
- still massively volume overloaded.
- weight down 2 lbs overnight, continue to monitor daily.
- echo EF 55%, mild cLVH.
- SGLT2i cost is $10, will start when renal function improves.
PAN - worse.
- nephrology following.
- Lasix and Losartan held.
Tachyarrhythmia - short bursts of SVT with aberrancy, asymptomatic.
- mostly NSR, continue Coreg 25mg BID and monitor.
- if its more frequent then add consider adding Diltiazem.
Pleural effusion - left s/p thoracentesis with 2L removed.
HLD - continue Crestor.
JOHNSON - stable on CPAP, continue.
DM - on Mounjaro for 1 month, last dose .
- per hospitalist.
Physical Exam
Vital Signs/Labs
Vital Signs
Temp Pulse Resp BP Pulse Ox
98.1 F 71 18 149/67 94
01/08/25 07:48 01/08/25 07:46 01/08/25 07:48 01/08/25 07:46 01/08/25 08:30
01/07/25 01/08/25 01/09/25
06:59 06:59 06:59
Actual Weight 253 lb 12.033 oz 251 lb 1.704 oz
01/08/25 03:50
01/08/25 03:50
PT 14.1 Sec (11.4-14.6) 01/06/25 15:02
INR 1.04 01/06/25 15:02
Magnesium 1.7 mg/dl (1.6-2.3) 01/07/25 02:50
Triglycerides 105 mg/dl (10-149) 01/07/25 02:50
LDL Cholesterol, Calc 79 mg/dl 01/07/25 02:50
VLDL Cholesterol, Calc 21 mg/dl (0-30) 01/07/25 02:50
HDL Cholesterol 30 mg/dl 01/07/25 02:50
01/06/25
12:01
Gpq-G-Laifezyyqfg Pept 7390
LAB Results
01/06/25 01/06/25 01/06/25
08: 12:01 18:15
Troponin I 0.029 0.027 Cancelled
Physical Exam
Constitutional: No acute distress and Comfortable
EENT: Anicteric and Moist mucous membranes
Cardiovascular: Rhythm & rate is regular
Respiratory: Respiratory effort normal
GI: Soft, Non tender and Normal bowel sounds
Neuro/Psych: AO x 3
Other: Skin (warm, dry )
Data Reviewed
-
Date of Service: January 08, 2025
Medical Decision Making: Reviewed Test Results
EKG: Tracing Personally Visualized and interpreted
Echo: Report Reviewed by me
X-Ray/CT/US/MRI/NUC/PET: Report Reviewed by me
Labs: Labs Reviewed by me
--- NOTE | 2025-01-08 11:30 | W.PN.HOSP.TC ---
Today's Communication/Plan
-
.
Assessment / Plan
Assessment / Plan
Physical Exam
General: Comfortable, Conversant and Obese
HEENT: Normocephalic, Anicteric, Moist mucous membranes, Atraumatic and Oxygen (Nasal Cannula)
Respiratory: Clear, Non Labored Respirations and better Breath Sounds left side.
Cardiac: S1/S2, Regular Rhythm and Murmur
GI: Soft, Non Tender and Other (Protuberant)
Genito-urinary: Clear Urine
Musculoskeletal: No Clubbing, No Cyanosis and Other (+4 Pitting Edema bilateral lower extremities)
Skin: Warm and Dry; No Rash
Neuro: Awake, Alert, Oriented and Nonfocal/grossly intact
Psych: Calm
# Acute new onset Heart Failure with preserved EF
- s/p Lasix 40mg IV to BID , on hold due to SURAJ
- Echo LVH with LVEF 55 %.
-Monitor Is&Os and Daily Weights
Appreciate cardiology input
# Hypertensive Emergency
- s/p nitroglycerin infusion
-Changed to Coreg 25 mg BID
Added Nifedipine
Holding Losartan & Lasix due to SURAJ
- Normal TSH
- Added PRN hydralazine
#Suraj
Could be post renal or renal. He received IV dye
Holding Lasix, Losartan for now
No retention on bladder scan
recheck BMP in am
Known urinary hesitancy, he follows with urologist.
- Started on Vesicare i OP
Consulted nephrology, appreciate help
# Constipation, MiraLAX
No abdominal pain
# Left Pleural Effusion
- s/p 2 liters thoracentesis, no Pneumothorax post procedure. Good air on auscultation.
Diabetes Mellitus, Type II
c/w current regimen
HgbA1c 6.9
-Hold metformin
Patient is recently on Mounjaro and lost weight
-Monitor sugars and continue coverage insulin
# Diabetic neuropathy
#Advanced osteoarthritis, mostly left knee. Patient was taking meloxicam daily for left knee prior to planned surgery/replacement per orthopedic
Advised to admit avoid nonsteroidal anti-inflammatory drugs due to tendency for uncontrolled blood pressure and sodium retention.
# Hypokalemia, replaced
# leukocytosis, resolved, afebrile.
#Obesity due to Excess Calories
-Encourage weight loss
Patient is recently on Mounjaro and lost weight , he denies GI symptoms, reported lost 10 Ib.
Obstructive Sleep Apnea
-Continue CPAP
DVT proph: Lovenox, change to 30 mg QD
Code Status: Full Code
Total time spent to see the patient, examine the patient, review data and lab results, discuss treatment plan with patient and nursing staff around 55 minutes
Anticipated Discharge: > 48 hours
Subjective/Interval History
-
Date of Service: January 08, 2025
No chest pain
no sob
no nausea
Objective Data
-
Labs:
Laboratory Results
01/08/25
03:50
WBC 10.4
Hgb 13.1
Hct 37.3 L
Plt Count 359
Sodium 135
Potassium 3.4 L
Chloride 98
Carbon Dioxide 28
BUN 27 H
Creatinine 2.0 H
Glucose 120 H
Calcium 8.3 L
Vital Signs:
Vital Signs
Temp Pulse Resp BP Pulse Ox
98.3 F 70 16 121/61 93
01/08/25 10:49 01/08/25 10:45 01/08/25 10:49 01/08/25 10:43 01/08/25 10:50
I&O
01/07/25 01/08/25 01/09/25
06:59 06:59 06:59
Intake Total 403.8 / 403.8 1600 / 1600
Output Total 3245 / 3245 250 / 250
Balance -2841.2 / -2841.2 1350 / 1350
[2025-01-08 12:43] LABS: Glucose - Point of Care 168 mg/dl (70-99)
[2025-01-08] MEDS: MIRALAX 17 GRAMS PO (12:43)
[2025-01-08 15:21] LABS: Urine Albumin 4+ (Neg - Trace); Urine Bilirubin Negative (Negative); Urine Character Clear (Clear); Urine Color Yellow; Urine Glucose 1+ (Negative); Urine Ketone Negative (Negative); Urine Leukocyte Negative (Negative); Urine Nitrite Negative (Negative); Urine Occult Blood 1+ (Negative); Urine Specific Gravity 1.025 (<1.030); Urine Urobilinogen Negative (Neg - 1+)
[2025-01-08 15:42] LABS: Urine Squamous Cell 0-2 /LPF (Few)
[2025-01-08 15:43] LABS: Urine Bacteria Moderate (Negative); Urine Red Blood Cell 0-2 /HPF (0-2)
[2025-01-08 16:04] LABS: Glucose - Point of Care 160 mg/dl (70-99)
[2025-01-08] MEDS: LOVENOX 40 MG SC (17:18)
[2025-01-08] MEDS: ULTRAM 25 MG PO (20:23)
--- NOTE | 2025-01-08 20:41 | PTCARENOTE ---
Rec'd pt at change of shift. Pt AAO*3, VSS, and SR on TELE monitor. Pt reports severe back pain from chronic back pain with additional back pain from thoracentesis, Ultram 25 mg given per order. L posterior back site CDI with dressing intact. Pt
updated on plan of care. Pt resting with call valerio in reach and plan of care ongoing.
[2025-01-08 20:47] LABS: Urine Sodium 6 mmol/L (30-90)
[2025-01-08 21:23] LABS: Protein/creatinine Ratio 5.1; Urine Protein 1377 mg/dl
[2025-01-08 22:35] LABS: Glucose - Point of Care 147 mg/dl (70-99)
[2025-01-08] MEDS: ROXICODONE 5 MG PO (23:44)
[2025-01-09] VITALS (13 sets, daily range): BP systolic 114–166; BP diastolic 57–81; BMI 35.4
[2025-01-09 06:26] LABS: Blood Urea Nitrogen 37 mg/dl (9-20); Calcium 8.6 mg/dl (8.4-10.2); Carbon Dioxide 27 mmol/L (22-30); Chloride 99 mmol/L (98-107); Estimated Creatinine Clearance 43 ml/min; Glucose 142 mg/dl (70-99); Potassium 3.6 mmol/L (3.5-5.1); Sodium 133 mmol/L (135-145); eGFR 32.23
[2025-01-09] MEDS: FLOMAX 0.4 MG PO (07:42)
[2025-01-09] MEDS: COREG 25 MG PO ×2 (07:42→20:28)
[2025-01-09] MEDS: MIRALAX 17 GRAMS PO (07:42)
[2025-01-09] MEDS: CRESTOR 10 MG PO (07:42)
[2025-01-09] MEDS: PROCARDIA XL (EXTENDED RELEASE) 30 MG PO (07:42)
[2025-01-09 07:46] LABS: Glucose - Point of Care 130 mg/dl (70-99)
[2025-01-09] MEDS: NOVOLOG FLEXPEN-LOW RESISTANCE SC ×2 (07:50→17:22)
[2025-01-09] MEDS: LOW STRENGTH ASPIRIN 81 MG PO (07:50)
--- NOTE | 2025-01-09 09:58 | PTCARENOTE ---
Rec'd pt at handoff. Tele- SR. Pt has no complaints of SOB/chest discomfort this AM. Assessment completed as documented. Plan of care reviewed w/ pt and verbalizes understanding. Currently OOB in chair; call iman w/in reach.
--- NOTE | 2025-01-09 10:21 | W.PN.CD ---
Today's Communication / Plan
-
monitor for renal recovery
eventual diuresis
Impression / Plan
-
HTN emergency - acute on chronic HTN.
- improved with meds. NTG drip off and tolerating Coreg and Nifedipine.
- IV Lasix 40mg BID on hold due to PAN.
- Losartan on hold due to elevated renal function.
- renal artery u/s w/o stenosis.
- echo 01/06/25 EF 55%, moderate cLVH.
HFpEF - acute on chronic.
- IV Lasix 40mg BID held due to PAN.
- still massively volume overloaded.
- echo EF 55%, mild cLVH.
- SGLT2i cost is $10, will start when renal function improves.
PAN - worse.
-CR now 2.2 but UOP better in last 24 hours
- nephrology following.
- Lasix and Losartan held.
Tachyarrhythmia - short bursts of SVT with aberrancy, asymptomatic.
-today 5 beats of NSVT
- mostly NSR, continue Coreg 25mg BID and monitor.
- if its more frequent then add consider adding Diltiazem.
Pleural effusion - left s/p thoracentesis with 2L removed.
HLD - continue Crestor.
JOHNSON - stable on CPAP, continue.
DM - on Mounjaro for 1 month, last dose .
- per hospitalist.
Subjective: he has some increased uop yesterday, no cp or sb
Physical Exam
Vital Signs/Labs
Vital Signs
Temp Pulse Resp BP Pulse Ox
98.6 F 70 20 155/64 91
01/09/25 07:04 01/09/25 07:04 01/09/25 07:04 01/09/25 07:04 01/09/25 07:50
01/08/25 01/09/25 01/10/25
06:59 06:59 06:59
Actual Weight 251 lb 1.704 oz 253 lb 15.56 oz
01/08/25 03:50
01/09/25 05:41
PT 14.1 Sec (11.4-14.6) 01/06/25 15:02
INR 1.04 01/06/25 15:02
Magnesium 1.7 mg/dl (1.6-2.3) 01/07/25 02:50
Triglycerides 105 mg/dl (10-149) 01/07/25 02:50
LDL Cholesterol, Calc 79 mg/dl 01/07/25 02:50
VLDL Cholesterol, Calc 21 mg/dl (0-30) 01/07/25 02:50
HDL Cholesterol 30 mg/dl 01/07/25 02:50
01/06/25
12:01
Syj-B-Zbftbodonhl Pept 7390
LAB Results
01/06/25 01/06/25
12:01 18:15
Troponin I 0.027 Cancelled
Physical Exam
Constitutional: No acute distress and Comfortable
Cardiovascular: Rhythm & rate is regular, Pedal edema present (2+ b/l ) and JVD present
Respiratory: Respiratory effort normal, Lungs clear to auscul., Wheeze Absent and Crackles Absent
Neuro/Psych: AO x 3
Data Reviewed
-
Date of Service: January 09, 2025
EKG: Other (tele Sinus 5 beats nsvt)
[2025-01-09 13:06] LABS: Glucose - Point of Care 188 mg/dl (70-99)
--- NOTE | 2025-01-09 13:11 | W.PN.HOSP.TC ---
Today's Communication/Plan
-
.
Assessment / Plan
Assessment / Plan
Physical Exam
General: Comfortable, Conversant and Obese
HEENT: Normocephalic, Anicteric, Moist mucous membranes, Atraumatic and Oxygen (Nasal Cannula)
Respiratory: Clear, Non Labored Respirations and better Breath Sounds left side.
Cardiac: S1/S2, Regular Rhythm and Murmur
GI: Soft, Non Tender and Other (Protuberant)
Genito-urinary: Clear Urine
Musculoskeletal: No Clubbing, No Cyanosis and Other (+4 Pitting Edema bilateral lower extremities)
Skin: Warm and Dry; No Rash
Neuro: Awake, Alert, Oriented and Nonfocal/grossly intact
Psych: Calm
# Acute new onset Heart Failure with preserved EF
- s/p Lasix 40mg IV to BID , on hold due to SURAJ
- Echo LVH with LVEF 55 %.
-Monitor Is&Os and Daily Weights
Appreciate cardiology input
# Hypertensive Emergency
- s/p nitroglycerin infusion
-Changed to Coreg 25 mg BID
Added Nifedipine
Holding Losartan & Lasix due to SURAJ
- Normal TSH
- Added PRN hydralazine
#Suraj
Could be post renal or renal. He received IV dye
urine positive for albumin, suspect underlying diabetic nephropathy
Holding Lasix, Losartan for now
No retention on bladder scan
recheck BMP in am
Known urinary hesitancy, he follows with urologist.
- Started on Vesicare i OP
Consulted nephrology, appreciate help
# Constipation, MiraLAX
No abdominal pain
# Left Pleural Effusion
- s/p 2 liters thoracentesis, no Pneumothorax post procedure. Good air on auscultation.
Diabetes Mellitus, Type II
c/w current regimen
HgbA1c 6.9
-Hold metformin
Patient is recently on Mounjaro and lost weight
-Monitor sugars and continue coverage insulin
# Diabetic neuropathy
#Advanced osteoarthritis, mostly left knee. Patient was taking meloxicam daily for left knee prior to planned surgery/replacement per orthopedic
Advised to admit avoid nonsteroidal anti-inflammatory drugs due to tendency for uncontrolled blood pressure and sodium retention.
# Hypokalemia, replaced
# leukocytosis, resolved, afebrile.
#Obesity due to Excess Calories
-Encourage weight loss
Patient is recently on Mounjaro and lost weight , he denies GI symptoms, reported lost 10 Ib.
Obstructive Sleep Apnea
-Continue CPAP
DVT proph: Lovenox, change to 30 mg QD
Code Status: Full Code
Total time spent to see the patient, examine the patient, review data and lab results, discuss treatment plan with patient, , venetian blind cleaner, and nursing staff around 59 minutes
Anticipated Discharge: > 48 hours
Subjective/Interval History
-
Date of Service: January 09, 2025
No chest pain
No sob
No fevers
Objective Data
-
Labs:
Laboratory Results
01/09/25
05:41
Sodium 133 L
Potassium 3.6
Chloride 99
Carbon Dioxide 27
BUN 37 H
Creatinine 2.2 H
Glucose 142 H
Calcium 8.6
Vital Signs:
Vital Signs
Temp Pulse Resp BP Pulse Ox
98.5 F 63 20 114/57 94
01/09/25 11:35 01/09/25 12:00 01/09/25 11:35 01/09/25 11:35 01/09/25 11:35
I&O
01/08/25 01/09/25 01/10/25
06:59 06:59 06:59
Intake Total 1600 / 1600 1210 / 1210 400 / 400
Output Total 250 / 250 501 / 501
Balance 1350 / 1350 709 / 709 400 / 400
[2025-01-09] MEDS: NOVOLOG FLEXPEN-LOW RESISTANCE 1 UNITS SC (13:14)
--- NOTE | 2025-01-09 14:56 | W.PN.NEPH.PH ---
Today's Communication / Plan
-
A.m. labs
Daily weights
Assessment/Plan
-
64 y/o male past medical history of hypertension, hyperlipidemia, and diabetes mellitus who presents with chest/back pain and uncontrolled blood pressure. Patient reports worsning lower extremity for the past several months. He report his blood
pressure has not been well controlled. He notes his PCP started him on losartan/HCTZ but he only took it one time as it made him urinate too much
Renal consult for acute kidney injury creatinine of 2 with a normal baseline 1.1 on admission.
He is status postthoracentesis 2 L on the left.
Presented with a blood pressure over 200 systolic and over 100 diastolic
Chronic NSAID use meloxicam and Advil
Impression.
Acute kidney injury creatinine of 2 with a baseline creatinine 1.1 on admission
Hypertensive urgency/chronic NSAID use meloxicam and Advil
Pleural effusion
Diastolic dysfunction
Obesity
Diabetes
Plan.
Acuity multifactorial IV contrast and hypertensive urgency most likely.
Hold losartan
Hold Lasix
Maintain blood pressure at current 140 systolic.
Renal duplex no evidence of renal artery stenosis although limited study.
This is unlikely secondary hypertension.
Urinalysis bland/protein creatinine ratio 5.1 likely diabetic etiology
Candidate for SGLT2 inhibitor.
Advised the patient to avoid NSAIDs that she was taking chronically for knee pain
Discussed with his at length in detail
Hoping for creatinine to plateau once we see a plateau in study renal function will be okay for discharge does not need to improved to normal prior to discharge
Renal dose all medications
Continue to hold glomerular modifying medications until reaches steady state
Follow-up with us outpatient upon discharge
A.m. labs
-
-
Date of Service: January 09, 2025
CC / HPI / ROS
-
Chief Complaint:
Hypertensive urgency
History of Present Illness:
Hypertensive urgency shortness of breath status post IV contrast acute kidney injury
Review of Systems:
No chest pain or shortness of breath
Labs
-
Labs:
WBC 10.4 10^3/uL (4.8-10.8) 01/08/25 03:50
RBC 4.41 10^6/uL (4.70-6.10) L 01/08/25 03:50
Hgb 13.1 g/dL (13.0-18.0) 01/08/25 03:50
Hct 37.3 % (39.0-52.0) L 01/08/25 03:50
Plt Count 359 10^3/uL (130-400) 01/08/25 03:50
Sodium 133 mmol/L (135-145) L 01/09/25 05:41
Potassium 3.6 mmol/L (3.5-5.1) 01/09/25 05:41
Chloride 99 mmol/L (98-107) 01/09/25 05:41
Carbon Dioxide 27 mmol/L (22-30) 01/09/25 05:41
BUN 37 mg/dl (9-20) H 01/09/25 05:41
Creatinine 2.2 mg/dL (0.7-1.3) H 01/09/25 05:41
eGFR 32.23 01/09/25 05:41
Glucose 142 mg/dl (70-99) H 01/09/25 05:41
Calcium 8.6 mg/dl (8.4-10.2) 01/09/25 05:41
Llk-E-Zibmyxfuhnp Pept 7390 pg/ml 01/06/25 12:01
Albumin 2.7 g/dl (3.5-5.0) L 01/07/25 02:50
Physical Exam
-
Vital Signs:
Vital Signs
Temp Pulse Resp BP Pulse Ox
98.5 F 63 20 114/57 94
01/09/25 11:35 01/09/25 12:00 01/09/25 11:35 01/09/25 11:35 01/09/25 11:35
Respiratory:: Bilateral: CTA
Lung Excursion:: Normal
Abdomen:: Soft
Bowel Sounds:: Normal
Extremity Edema:: +2: Bilateral:
Mireles Catheter: No
[2025-01-09 17:21] LABS: Glucose - Point of Care 141 mg/dl (70-99)
[2025-01-09] MEDS: LOVENOX 40 MG SC (17:21)
--- NOTE | 2025-01-09 21:00 | PTCARENOTE ---
Rec'd pt at change of shift. Pt AAO*3, VSS, and SR on TELE monitor. Pt given education on CHF and CHF booklet, pt updated on plan of care, and pt verbalizes understanding of education and plan of care. Pt denies any active pain or discomfort. Pt
resting at side of bed with call vlaerio in reach and plan of care ongoing. See MAR and flowchart for full pt care and assessment.
[2025-01-09] MEDS: MELATONIN 5 MG PO (21:44)
[2025-01-09] MEDS: ULTRAM 25 MG PO (21:44)
[2025-01-09 21:50] LABS: Glucose - Point of Care 157 mg/dl (70-99)
[2025-01-09] MEDS: APRESOLINE 5 MG PO (21:57)
[2025-01-10] VITALS (9 sets, daily range): BP systolic 122–157; BP diastolic 64–75; BMI 35.5
[2025-01-10] MEDS: TYLENOL 1000 MG PO (04:04)
[2025-01-10 04:58] LABS: Blood Urea Nitrogen 39 mg/dl (9-20); Calcium 8.7 mg/dl (8.4-10.2); Carbon Dioxide 27 mmol/L (22-30); Chloride 99 mmol/L (98-107); Estimated Creatinine Clearance 49 ml/min; Glucose 140 mg/dl (70-99); Magnesium 2.2 mg/dl (1.6-2.3); Potassium 3.9 mmol/L (3.5-5.1); Sodium 133 mmol/L (135-145); eGFR 38.42
[2025-01-10] MEDS: COREG 25 MG PO ×2 (08:33→20:15)
[2025-01-10] MEDS: PROCARDIA XL (EXTENDED RELEASE) 30 MG PO ×2 (08:34→09:59)
[2025-01-10] MEDS: FLUSH (NSS) 1 FLUSH IV (08:34)
[2025-01-10] MEDS: FLOMAX 0.4 MG PO (08:34)
[2025-01-10] MEDS: LOW STRENGTH ASPIRIN 81 MG PO (08:34)
[2025-01-10] MEDS: CRESTOR 10 MG PO (08:34)
[2025-01-10] MEDS: MIRALAX 17 GRAMS PO (08:35)
--- NOTE | 2025-01-10 08:37 | PN.DE.MGMTRT ---
Insulin Management
- -
01/10/2025: Diabetes Management Consult
64 year old male with PMH: HTN, HLD and T2DM, who presents with chest/back pain and uncontrolled blood pressure associated with worsening lower extremity for the past several months. He notes his PCP started him on losartan/HCTZ but he only took it
one time as it made him urinate too much. Pt was dx with severe acute on chronic HFpEF, requiring hospitalization and close monitoring.
Was taking Metformin 1000 mg BID and Mounjaro 10mg Q Friday A1C 6.9%, Cr 1.1--> 1.9, eGFR 38.42.
Currently on low corrective insulin AC. Glucose stable and in range, premeal 141 to 188, @ HS 157, fasting 143 POC this AM.
Will make no changes to current regimen: Low corrective AC. Metformin was held due to PAN.
Will closely monitor kidney function and resume Metformin if Cr is back to baseline.
Pt will need OP follow up with PCP to have repeat BMP and determine when medically safe to resume Mounjaro.
Diabetes History
- -
Type of Diabetes: 2 requiring insulin
Pre-Admission Diabetes Regimen
01/10/25
04:03
Creatinine 1.9 H
Lab Results
Hemoglobin A1c 6.9 % (4.0-5.6) H 01/07/25 02:50
Insulin Pump Settings
IP Diabetes Regimen
01/09/25 01/09/25 01/09/25
13:05 17:20 21:48
Glucose
POC Glucose 188 H 141 H 157 H
01/10/25
04:03
Glucose 140 H
POC Glucose
Meal type: Dinner
Meal type: Breakfast
Amount consumed: 100%
Amount consumed: 100%
Patient Education
--- NOTE | 2025-01-10 08:41 | W.PN.CD ---
Addendum entered and electronically signed by Shane Briscoe MD 01/10/25 09:15:
discussed with hospitalist: will resume IV lasix
Original Note:
Today's Communication / Plan
-
cont coreg 25mg bid, and increase nifedipine to 60mg daily
IV Lasix 40mg BID held due to PAN
await nephrology input before re-attempting diuresis
Impression / Plan
-
HTN emergency - acute on chronic HTN. improved.
- improved with meds. NTG drip off and tolerating Coreg and Nifedipine.
- IV Lasix 40mg BID on hold due to PAN.
- Losartan on hold due to elevated renal function.
- renal artery u/s w/o stenosis.
- echo 01/06/25 EF 55%, moderate cLVH.
-cont coreg 25mg bid, and increase nifedipine to 60mg daily
HFpEF - acute on chronic. severe, requiring hospitalization and close monitoring of labs/tele
- IV Lasix 40mg BID held due to PAN.
- still volume overloaded.
-edema likely component of both HF and lymphedema (he uses pumps at home)
- echo EF 55%, mild cLVH.
- SGLT2i cost is $10, will start when renal function improves.
-await nephrology input before re-attempting diuresis
PAN - improving
- nephrology following.
- Lasix and Losartan held.
Tachyarrhythmia - short bursts of SVT with aberrancy, asymptomatic.
- 5 beats of NSVT previously
- mostly NSR, continue Coreg 25mg BID and monitor.
Pleural effusion - left s/p thoracentesis with 2L removed.
HLD - continue Crestor.
JOHNSON - stable on CPAP, continue.
DM - on Mounjaro for 1 month, last dose .
- per hospitalist.
Physical Exam
Vital Signs/Labs
Vital Signs
Temp Pulse Resp BP Pulse Ox
97.5 F 65 20 141/75 95
01/10/25 07:58 01/10/25 08:00 01/10/25 07:58 01/10/25 07:57 01/10/25 07:58
01/09/25 01/10/25 01/11/25
06:59 06:59 06:59
Actual Weight 115.2 kg 115.3 kg
01/08/25 03:50
01/10/25 04:03
PT 14.1 Sec (11.4-14.6) 01/06/25 15:02
INR 1.04 01/06/25 15:02
Magnesium 2.2 mg/dl (1.6-2.3) 01/10/25 04:03
Triglycerides 105 mg/dl (10-149) 01/07/25 02:50
LDL Cholesterol, Calc 79 mg/dl 01/07/25 02:50
VLDL Cholesterol, Calc 21 mg/dl (0-30) 01/07/25 02:50
HDL Cholesterol 30 mg/dl 01/07/25 02:50
01/06/25
12:01
Hej-R-Yoxdroasqda Pept 7390
Physical Exam
Constitutional: No acute distress
EENT: Moist mucous membranes
Cardiovascular: Rhythm & rate is regular, Systolic murmur absent, Pedal edema present and JVD present
Respiratory: Respiratory effort normal and Lungs clear to auscul.
Neuro/Psych: AO x 3
Data Reviewed
-
Date of Service: January 10, 2025
EKG: Other (Tele: SR, brief SVT)
Labs: Labs Reviewed by me
[2025-01-10 08:42] LABS: Glucose - Point of Care 143 mg/dl (70-99)
[2025-01-10] MEDS: NOVOLOG FLEXPEN-LOW RESISTANCE SC (08:42)
[2025-01-10] MEDS: LASIX 40 MG IV ×2 (09:59→16:52)
--- NOTE | 2025-01-10 10:34 | W.PN.HOSP.TC ---
Today's Communication/Plan
-
ok for Lasix today
Monitor weight and urine out put, risk for retention. Bladder scan protocol.
Assessment / Plan
Assessment / Plan
Physical Exam
General: Comfortable, Conversant and Obese
HEENT: Normocephalic, Anicteric, Moist mucous membranes, Atraumatic and Oxygen (Nasal Cannula)
Respiratory: Clear, Non Labored Respirations and better Breath Sounds left side.
Cardiac: S1/S2, Regular Rhythm and Murmur
GI: Soft, Non Tender and Other (Protuberant)
Genito-urinary: Clear Urine
Musculoskeletal: No Clubbing, No Cyanosis and Other (+4 Pitting Edema bilateral lower extremities)
Skin: Warm and Dry; No Rash
Neuro: Awake, Alert, Oriented and Nonfocal/grossly intact
Psych: Calm
# Acute new onset Heart Failure with preserved EF
- s/p Lasix 40mg IV to BID , on hold due to SURAJ
- Echo LVH with LVEF 55 %.
-Monitor Is&Os and Daily Weights
Appreciate cardiology input
# Hypertensive Emergency
- s/p nitroglycerin infusion
-Changed to Coreg 25 mg BID
Added Nifedipine, increase dose to 60 mg QD.
Held Losartan & Lasix due to SURAJ
- Normal TSH
- Added PRN hydralazine
#Suraj
Could be post renal or renal. He received IV dye
Urine positive for albumin, suspect underlying diabetic nephropathy
Held Lasix, Losartan. Creatinine is coming down from 2.2 to 1.9 , d/w duplicating machine servicer, ok to start on Lasix.
No retention on bladder scan
Known urinary hesitancy, he follows with urologist.
- Started on Vesicare in OP
Consulted nephrology, appreciate help
# Constipation, MiraLAX
No abdominal pain
# Left Pleural Effusion
- s/p 2 liters thoracentesis, no Pneumothorax post procedure. Good air on auscultation.
Diabetes Mellitus, Type II
c/w current regimen
HgbA1c 6.9
-Hold metformin,
Patient is recently on Mounjaro and lost weight
-Monitor sugars and continue coverage insulin
Consulted DM educator.
# Diabetic neuropathy
#Advanced osteoarthritis, mostly left knee. Patient was taking meloxicam daily for left knee prior to planned surgery/replacement per orthopedic
Advised to admit avoid nonsteroidal anti-inflammatory drugs due to tendency for uncontrolled blood pressure and sodium retention.
# Hypokalemia, replaced
# leukocytosis, resolved, afebrile.
#Obesity due to Excess Calories
-Encourage weight loss
Patient is recently on Mounjaro and lost weight , he denies GI symptoms, reported lost 10 Ib.
Obstructive Sleep Apnea
-Continue CPAP
DVT proph: Lovenox, change to 30 mg QD
Code Status: Full Code
Total time spent to see the patient, examine the patient, review data and lab results, discuss treatment plan with patient, flag car driver and nursing staff around 59 minutes
Anticipated Discharge: 24 - 48 hours
Subjective/Interval History
-
Date of Service: January 10, 2025
No sob
No chest pain
Objective Data
-
Labs:
Laboratory Results
01/10/25
04:03
Sodium 133 L
Potassium 3.9
Chloride 99
Carbon Dioxide 27
BUN 39 H
Creatinine 1.9 H
Glucose 140 H
Calcium 8.7
Vital Signs:
Vital Signs
Temp Pulse Resp BP Pulse Ox
97.5 F 65 20 141/75 95
01/10/25 07:58 01/10/25 08:00 01/10/25 07:58 01/10/25 07:57 01/10/25 07:58
I&O
01/09/25 01/10/25 01/11/25
06:59 06:59 06:59
Intake Total 1210 / 1210 1280 / 1280
Output Total 501 / 501
Balance 709 / 709 1280 / 1280
--- NOTE | 2025-01-10 10:55 | PTCARENOTE ---
Patient sitting oob in the chair this morning, states he didn't sleep well last night due to his Cpap not working properly. Patient states the hospitalist checked it out and it seems to be fine. Patient given IV lasix as ordered and instructed of
need to measure his urine for accurate I&O. Needs reinforcement about heart failure plan of care and medications.
[2025-01-10 12:50] LABS: Glucose - Point of Care 178 mg/dl (70-99)
[2025-01-10] MEDS: NOVOLOG FLEXPEN-LOW RESISTANCE 1 UNITS SC ×2 (13:17→17:12)
--- NOTE | 2025-01-10 14:12 | W.PN.NEPH.PH ---
Today's Communication / Plan
-
ok for lasix
follow labs
Assessment/Plan
-
64 y/o male past medical history of hypertension, hyperlipidemia, and diabetes mellitus who presents with chest/back pain and uncontrolled blood pressure. Patient reports worsning lower extremity for the past several months. He report his blood
pressure has not been well controlled. He notes his PCP started him on losartan/HCTZ but he only took it one time as it made him urinate too much
Renal consult for acute kidney injury creatinine of 2 with a normal baseline 1.1 on admission.
He is status postthoracentesis 2 L on the left.
Presented with a blood pressure over 200 systolic and over 100 diastolic
Chronic NSAID use meloxicam and Advil
Impression.
Acute kidney injury creatinine of 2 with a baseline creatinine 1.1 on admission
Hypertensive urgency/chronic NSAID use meloxicam and Advil
Pleural effusion
Diastolic dysfunction
Obesity
Diabetes
Plan.
Milton likely multifactorial IV contrast and hypertensive urgency most likely.
bland UA with nephrotic range of proteinuria 5.1gm/gm of cr highly suggest diabetic nephropathy-need close f/u out pt
U na low at 6 suggest possible prerneal/cardiorenal too
cr improving slowly at 1.9
Hold losartan ans ok to resume Lasix
Renal duplex no evidence of renal artery stenosis although limited study.
Candidate for SGLT2 inhibitor.
patient was avoid NSAIDs that she was taking chronically for knee pain
Renal dose all medications
BP improving, meds adjusted by cards, increased CCB, cont coreg
Follow-up with us outpatient upon discharge
A.m. labs
-
-
Date of Service: January 10, 2025
CC / HPI / ROS
-
Chief Complaint:
Hypertensive urgency
History of Present Illness:
Hypertensive urgency shortness of breath status post IV contrast acute kidney injury
cr better at 1.9, Bp better today
wt slightly up
on RA
sodium low 133-stable
Review of Systems:
No chest pain or shortness of breath at rest
significant edema no change
no fever
Labs
-
Labs:
WBC 10.4 10^3/uL (4.8-10.8) 01/08/25 03:50
RBC 4.41 10^6/uL (4.70-6.10) L 01/08/25 03:50
Hgb 13.1 g/dL (13.0-18.0) 01/08/25 03:50
Hct 37.3 % (39.0-52.0) L 01/08/25 03:50
Plt Count 359 10^3/uL (130-400) 01/08/25 03:50
Sodium 133 mmol/L (135-145) L 01/10/25 04:03
Potassium 3.9 mmol/L (3.5-5.1) 01/10/25 04:03
Chloride 99 mmol/L (98-107) 01/10/25 04:03
Carbon Dioxide 27 mmol/L (22-30) 01/10/25 04:03
BUN 39 mg/dl (9-20) H 01/10/25 04:03
Creatinine 1.9 mg/dL (0.7-1.3) H 01/10/25 04:03
eGFR 38.42 01/10/25 04:03
Glucose 140 mg/dl (70-99) H 01/10/25 04:03
Calcium 8.7 mg/dl (8.4-10.2) 01/10/25 04:03
Sru-E-Blfzhbjtdsv Pept 7390 pg/ml 01/06/25 12:01
Albumin 2.7 g/dl (3.5-5.0) L 01/07/25 02:50
Physical Exam
-
Vital Signs:
Vital Signs
Temp Pulse Resp BP Pulse Ox
98 F 60 20 125/64 95
01/10/25 12:02 01/10/25 12:02 01/10/25 12:02 01/10/25 12:02 01/10/25 12:02
Cardiovascular:: Regular rate and rhythm
Respiratory:: Bilateral: CTA
Lung Excursion:: Normal
Abdomen:: Distended, Nontender and Soft
Bowel Sounds:: Normal
Extremity Edema:: +3: Bilateral:
Mireles Catheter: No
--- NOTE | 2025-01-10 15:18 | CM ---
dc plans remain home with when medically stable.
[2025-01-10 17:11] LABS: Glucose - Point of Care 167 mg/dl (70-99)
[2025-01-10] MEDS: LOVENOX 40 MG SC (17:13)
[2025-01-10] MEDS: MELATONIN 5 MG PO (21:19)
[2025-01-10] MEDS: ULTRAM 25 MG PO (21:20)
[2025-01-10 21:52] LABS: Glucose - Point of Care 146 mg/dl (70-99)
[2025-01-11] VITALS (7 sets, daily range): BP systolic 136–152; BP diastolic 65–75; BMI 35.6
[2025-01-11 04:12] LABS: Blood Urea Nitrogen 41 mg/dl (9-20); Calcium 9.1 mg/dl (8.4-10.2); Carbon Dioxide 30 mmol/L (22-30); Chloride 100 mmol/L (98-107); Estimated Creatinine Clearance 52 ml/min; Glucose 136 mg/dl (70-99); Potassium 4.1 mmol/L (3.5-5.1); Sodium 135 mmol/L (135-145)
--- NOTE | 2025-01-11 05:42 | PTCARENOTE ---
Rec'd pt at change of shift. Pt AAO*3, VSS, and SR on TELE monitor. Pt updated on plan of care. Pt reported lower back pain and ultram given as ordered. See flowchat for full pt care and assessment. Plan of care ongoing.
[2025-01-11] MEDS: TYLENOL 1000 MG PO (06:12)
[2025-01-11 07:19] LABS: Glucose - Point of Care 154 mg/dl (70-99)
--- NOTE | 2025-01-11 07:27 | PN.DE.MGMTRT ---
Insulin Management
- -
01/11/2025: Diabetes Management Consult Follow up
Patient admitted with chest/back pain and uncontrolled blood pressure associated with worsening lower extremity swelling for the past several months. PMH: HTN, HLD and T2DM, who presents He notes his PCP started him on losartan/HCTZ but he only
took it one time as it made him urinate too much. Pt was dx with severe acute on chronic HFpEF and L pleural effusion. s/p Thoracentesis - 2 L fluid 01/07. Prior to admission was taking Metformin 1000 mg BID and Mounjaro 10mg Q Friday (started 1
month ago), A1C 6.9%, Cr 1.1 on admission.
Patient is awake alert and oriented, OOB in chair able to discuss diabetes care. States he has a 10+ year history of diabetes and sees his primary care provider for care.
Currently on low corrective insulin AC. Glucose stable and in range, premeal 141 to 178, @ HS 146, fasting 134 POC this AM, cr 1.8, eGFR 41.
Due to new onset HF, will start farxiga 10 mg daily, continue Low corrective AC. Continue to HOLD Metformin due to PAN.
Will closely monitor kidney function and resume Metformin if Cr is back to baseline.
Discussed at length with patient action of Farxiga and benefits, patient is agreeable to starting. CM has researched farxiga is $10/ month. Patient states his insurance will change end of month. Recommended he test his glucose BID in pattern
provided in diabetes education booklet. He verbalized understanding.
Pt will need OP follow up with PCP to have repeat BMP and determine when medically safe to resume Mounjaro.
Discussed with nurse.
Will follow
Diabetes History
- -
Type of Diabetes: 2
Pre-Admission Diabetes Regimen
01/11/25
03:35
Creatinine 1.8 H
Lab Results
Hemoglobin A1c 6.9 % (4.0-5.6) H 01/07/25 02:50
Insulin Pump Settings
IP Diabetes Regimen
01/10/25 01/10/25 01/10/25
08:41 12:49 17:10
Glucose
POC Glucose 143 H 178 H 167 H
01/10/25 01/11/25 01/11/25
21:51 03:35 07:17
Glucose 136 H
POC Glucose 146 H 154 H
Meal type: Dinner
Meal type: Lunch
Meal type: Breakfast
Amount consumed: 100%
Amount consumed: 100%
Amount consumed: 100%
Patient Education
--- NOTE | 2025-01-11 08:40 | W.PN.CD ---
Today's Communication / Plan
-
increase lasix to 80mg IV bid
-we discussed topic of RHC in case we are unable to make progress with diuresis
Impression / Plan
-
HTN emergency - acute on chronic HTN. improved.
- improved with meds. NTG drip off and tolerating Coreg and Nifedipine.
- renal artery u/s w/o stenosis.
- echo 01/06/25 EF 55%, moderate cLVH.
-cont coreg 25mg bid, and increased nifedipine to 60mg daily on 01/10
HFpEF - acute on chronic. severe, requiring hospitalization and close monitoring of labs/tele
- still volume overloaded.
-edema likely component of both HF and lymphedema (he uses pumps at home)
- echo EF 55%, mild cLVH.
- SGLT2i and entresto cost is $10; will start when renal function improves.
-increase lasix to 80mg IV bid
-we discussed topic of RHC in case we are unable to make progress with diuresis
PAN - improving
- nephrology following.
-Losartan held.
Tachyarrhythmia - short bursts of SVT with aberrancy, asymptomatic.
- 5 beats of NSVT previously
- mostly NSR, continue Coreg 25mg BID and monitor.
Pleural effusion - left s/p thoracentesis with 2L removed.
HLD - continue Crestor.
JOHNSON - stable on CPAP, continue.
DM - on Mounjaro for 1 month, last dose .
- per hospitalist.
Physical Exam
Vital Signs/Labs
Vital Signs
Temp Pulse Resp BP Pulse Ox
97.9 F 63 18 150/74 96
01/11/25 07:12 01/11/25 08:00 01/11/25 07:12 01/11/25 07:16 01/11/25 07:12
01/10/25 01/11/25 01/12/25
06:59 06:59 06:59
Actual Weight 115.3 kg 115.6 kg
01/08/25 03:50
01/11/25 03:35
PT 14.1 Sec (11.4-14.6) 01/06/25 15:02
INR 1.04 01/06/25 15:02
Magnesium 2.2 mg/dl (1.6-2.3) 01/10/25 04:03
Triglycerides 105 mg/dl (10-149) 01/07/25 02:50
LDL Cholesterol, Calc 79 mg/dl 01/07/25 02:50
VLDL Cholesterol, Calc 21 mg/dl (0-30) 01/07/25 02:50
HDL Cholesterol 30 mg/dl 01/07/25 02:50
01/06/25
12:01
Deh-F-Ruohnjfmcap Pept 7390
Physical Exam
Constitutional: No acute distress and Comfortable
EENT: Moist mucous membranes
Cardiovascular: Rhythm & rate is regular, Systolic murmur absent, Pedal edema present and JVD present
Respiratory: Respiratory effort normal and Lungs clear to auscul.
Neuro/Psych: AO x 3
Data Reviewed
-
Date of Service: January 11, 2025
EKG: Other (Tele: SR 60s)
Labs: Labs Reviewed by me
[2025-01-11] MEDS: LASIX IV (08:48)
[2025-01-11] MEDS: FLOMAX 0.4 MG PO (09:00)
[2025-01-11] MEDS: LOW STRENGTH ASPIRIN 81 MG PO (09:00)
[2025-01-11] MEDS: PROCARDIA XL (EXTENDED RELEASE) 60 MG PO (09:00)
[2025-01-11] MEDS: CRESTOR 10 MG PO (09:00)
[2025-01-11] MEDS: COREG 25 MG PO ×2 (09:00→20:28)
[2025-01-11] MEDS: NOVOLOG FLEXPEN-LOW RESISTANCE 1 UNITS SC ×3 (09:04→17:20)
[2025-01-11] MEDS: LASIX 80 MG IV ×2 (09:04→17:09)
[2025-01-11] MEDS: FLUSH (NSS) 2 FLUSH IV (09:05)
[2025-01-11] MEDS: FARXIGA 10 MG PO (09:10)
--- NOTE | 2025-01-11 09:27 | W.PN.NEPH.PH ---
Today's Communication / Plan
-
serologies
Assessment/Plan
-
64 y/o male past medical history of hypertension, hyperlipidemia, and diabetes mellitus who presents with chest/back pain and uncontrolled blood pressure. Patient reports worsning lower extremity for the past several months. He report his blood
pressure has not been well controlled. He notes his PCP started him on losartan/HCTZ but he only took it one time as it made him urinate too much
Renal consult for acute kidney injury creatinine of 2 with a normal baseline 1.1 on admission.
He is status postthoracentesis 2 L on the left.
Presented with a blood pressure over 200 systolic and over 100 diastolic
Chronic NSAID use meloxicam and Advil
Impression.
Acute kidney injury creatinine of 2 with a baseline creatinine 1.1 on admission
Hypertensive urgency/chronic NSAID use meloxicam and Advil
Pleural effusion
Diastolic dysfunction
Obesity
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
Plan.
PAN likely from contrast nephropathy, recovering
Now on SGLT2
Holding ARB
Increase diuretics
I suspect most of his fluid issues are related to his nephrotic syndrome
Serologic workup will be ordered
He may benefit from ultimate renal biopsy
It appears the nephrotic range proteinuria started only within the last year. He believes that his urinalyses were checked maybe twice a year and that he never had any issues. I cannot find results of any of these lab tests. The earliest one was
October 2023 which had significant albuminuria.
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
-
-
Date of Service: January 11, 2025
CC / HPI / ROS
-
Chief Complaint:
Hypertensive urgency
History of Present Illness:
Hypertensive urgency shortness of breath status post IV contrast acute kidney injury
PAN/Cr better at 1.8
BP high stable
on RA
Na improved
Review of Systems:
No chest pain or shortness of breath at rest
significant edema no change
no fever
Labs
-
Labs:
WBC 10.4 10^3/uL (4.8-10.8) 01/08/25 03:50
RBC 4.41 10^6/uL (4.70-6.10) L 01/08/25 03:50
Hgb 13.1 g/dL (13.0-18.0) 01/08/25 03:50
Hct 37.3 % (39.0-52.0) L 01/08/25 03:50
Plt Count 359 10^3/uL (130-400) 01/08/25 03:50
Sodium 135 mmol/L (135-145) 01/11/25 03:35
Potassium 4.1 mmol/L (3.5-5.1) 01/11/25 03:35
Chloride 100 mmol/L (98-107) 01/11/25 03:35
Carbon Dioxide 30 mmol/L (22-30) 01/11/25 03:35
BUN 41 mg/dl (9-20) H 01/11/25 03:35
Creatinine 1.8 mg/dL (0.7-1.3) H 01/11/25 03:35
eGFR 41.00 01/11/25 03:35
Glucose 136 mg/dl (70-99) H 01/11/25 03:35
Calcium 9.1 mg/dl (8.4-10.2) 01/11/25 03:35
Fad-I-Ifdfmeopurp Pept 7390 pg/ml 01/06/25 12:01
Albumin 2.7 g/dl (3.5-5.0) L 01/07/25 02:50
Physical Exam
-
Vital Signs:
Vital Signs
Temp Pulse Resp BP Pulse Ox
97.9 F 63 18 150/74 96
01/11/25 07:12 01/11/25 08:00 01/11/25 07:12 01/11/25 07:16 01/11/25 07:12
Cardiovascular:: Regular rate and rhythm
Respiratory:: Bilateral: Coarse
Lung Excursion:: Normal
Abdomen:: Nontender and Soft
Bowel Sounds:: Normal
Extremity Edema:: +3: Bilateral:
--- NOTE | 2025-01-11 11:46 | PTCARENOTE ---
Patient seen by cardiology this morning and aware of need for increased IV diuretics. Reinforced need for accurate I&O and to limit PO fluids. Thee wraps applied to below the knee bilaterally, edema remains unchanged. Sitting oob in the chair now,
visiting with his .
[2025-01-11 12:26] LABS: Glucose - Point of Care 177 mg/dl (70-99)
--- NOTE | 2025-01-11 14:54 | W.PN.HOSP.TC ---
Today's Communication/Plan
-
Increase diuresis, monitor output
Monitor BMP with diuresis
Assessment / Plan
Assessment / Plan
Physical Exam
General: Comfortable, Conversant and Obese
HEENT: Normocephalic, Anicteric, Moist mucous membranes, Atraumatic and Oxygen (Nasal Cannula)
Respiratory: Clear, Non Labored Respirations and better Breath Sounds left side.
Cardiac: S1/S2, Regular Rhythm and Murmur
GI: Soft, Non Tender and Other (Protuberant)
Genito-urinary: Clear Urine
Musculoskeletal: No Clubbing, No Cyanosis and Other (+4 Pitting Edema bilateral lower extremities)
Skin: Warm and Dry; No Rash
Neuro: Awake, Alert, Oriented and Nonfocal/grossly intact
Psych: Calm
# Acute new onset Heart Failure with preserved EF
� I suspect worsening due to nephrotic syndrome
- Increase Lasix dosing
- Echo LVH with LVEF 55 %.
-Monitor Is&Os and Daily Weights
Appreciate cardiology input
� May need right heart cath depending on diuresis
# Hypertensive Emergency
- s/p nitroglycerin infusion
-Changed to Coreg 25 mg BID
Added Nifedipine, increase dose to 60 mg QD.
Held Losartan & Lasix due to SURAJ
- Normal TSH
- Added PRN hydralazine
#Suraj
Could be post renal or renal. He received IV dye
Urine positive for albumin, suspect underlying nephrotic syndrome
Held Lasix, Losartan. Creatinine is coming down from 2.2 to 1.9 , d/w showroom sales consultant, ok to start on Lasix.
No retention on bladder scan
Known urinary hesitancy, he follows with urologist.
- Started on Vesicare in OP
Consulted nephrology, appreciate help
# Constipation, MiraLAX
No abdominal pain
# Left Pleural Effusion
- s/p 2 liters thoracentesis, no Pneumothorax post procedure.
�Cultures negative, atypical cells are reactive
Diabetes Mellitus, Type II
c/w current regimen
HgbA1c 6.9
-Hold metformin,
Patient is recently on Mounjaro and lost weight
-Monitor sugars and continue coverage insulin
Consulted DM educator.
# Diabetic neuropathy
#Advanced osteoarthritis, mostly left knee. Patient was taking meloxicam daily for left knee prior to planned surgery/replacement per orthopedic
Advised to admit avoid nonsteroidal anti-inflammatory drugs due to tendency for uncontrolled blood pressure and sodium retention.
# Hypokalemia, replaced
# leukocytosis, resolved, afebrile.
#Obesity due to Excess Calories
-Encourage weight loss
Patient is recently on Mounjaro and lost weight , he denies GI symptoms, reported lost 10 Ib.
Obstructive Sleep Apnea
-Continue CPAP
DVT proph: Lovenox,
Code Status: Full Code
Total time spent to see the patient, examine the patient, review data and lab results, discuss treatment plan with patient, rn intensive care unit and nursing staff around 59 minutes
Anticipated Discharge: > 48 hours
Subjective/Interval History
-
Date of Service: January 11, 2025
No events overnight
Objective Data
-
Labs:
Laboratory Results
01/11/25
03:35
Sodium 135
Potassium 4.1
Chloride 100
Carbon Dioxide 30
BUN 41 H
Creatinine 1.8 H
Glucose 136 H
Calcium 9.1
Vital Signs:
Vital Signs
Temp Pulse Resp BP Pulse Ox
98.0 F 74 18 149/75 96
01/11/25 11:34 01/11/25 12:00 01/11/25 11:34 01/11/25 11:32 01/11/25 11:34
I&O
01/10/25 01/11/25 01/12/25
06:59 06:59 06:59
Intake Total 1280 / 1280 1800 / 1800 480 / 480
Output Total 1300 / 1300 1550 / 1550
Balance 1280 / 1280 500 / 500 -1070 / -1070
Review of Systems
-
History Source: Patient
All other systems: Not reviewed unless documented
Data Reviewed
-
Diagnostic Radiology: Report Reviewed by me
CT Scan: Report Reviewed by me
Ultrasound: Report Reviewed by me
Labs: Labs Reviewed by me
[2025-01-11] MEDS: MIRALAX 17 GRAMS PO (17:04)
[2025-01-11] MEDS: LOVENOX 40 MG SC (17:09)
[2025-01-11 17:21] LABS: Glucose - Point of Care 160 mg/dl (70-99)
[2025-01-11] MEDS: ULTRAM 25 MG PO (22:33)
[2025-01-11] MEDS: MELATONIN 5 MG PO (22:33)
[2025-01-11 22:43] LABS: Glucose - Point of Care 200 mg/dl (70-99)
--- NOTE | 2025-01-11 23:18 | PTCARENOTE ---
Patient received at change of shift out of bed to the chair. Reports some tenderness at his thoracentesis site but otherwise offers no complaints. Denies chest pain or pressure. Denies headaches or vision changes. Sinus rhythm on telemetry. Oxygen
saturation 93-96% on room air. Voiding clear yellow urine. PRN Tramadol and Melatonin given per patient request, see MAR. Call valerio within reach. Plan of care discussed. Care ongoing.
[2025-01-12] VITALS (10 sets, daily range): BP systolic 129–171; BP diastolic 59–75; BMI 35.1
[2025-01-12] MEDS: TYLENOL 1000 MG PO ×3 (01:45→19:28)
[2025-01-12 03:57] LABS: Hematocrit 37.8 % (39.0-52.0); Hemoglobin 13.5 g/dL (13.0-18.0); Mean Corp Hgb Conc. 35.7 g/dL (33.0-37.0); Mean Corpuscular Hgb 30.1 pg (27.0-31.0); Mean Corpuscular Volume 84.4 fL (80.0-94.0); Platelet Count 434 10^3/uL (130-400); Red Blood Cell Count 4.48 10^6/uL (4.70-6.10); Red Cell Dist. Width 12.8 % (11.5-14.5); White Blood Cell Count 9.5 10^3/uL (4.8-10.8)
[2025-01-12 04:28] LABS: Blood Urea Nitrogen 43 mg/dl (9-20); Calcium 8.8 mg/dl (8.4-10.2); Carbon Dioxide 28 mmol/L (22-30); Chloride 100 mmol/L (98-107); Estimated Creatinine Clearance 55 ml/min; Glucose 152 mg/dl (70-99); Potassium 4.1 mmol/L (3.5-5.1); Sodium 137 mmol/L (135-145); eGFR 43.91
[2025-01-12 07:43] LABS: Glucose - Point of Care 157 mg/dl (70-99)
--- NOTE | 2025-01-12 07:48 | PN.DE.MGMTRT ---
Insulin Management
- -
01/12/2025: Diabetes Management Consult Follow up
Patient admitted with chest/back pain and uncontrolled blood pressure associated with worsening lower extremity swelling for the past several months. PMH: HTN, HLD and T2DM, who presents He notes his PCP started him on losartan/HCTZ but he only
took it one time as it made him urinate too much. Pt was dx with severe acute on chronic HFpEF and L pleural effusion. s/p Thoracentesis - 2 L fluid 01/07. Prior to admission was taking Metformin 1000 mg BID and Mounjaro 10mg Q Friday (started 1
month ago), A1C 6.9%, Cr 1.1 on admission.
Patient is awake alert and oriented, OOB in chair able to discuss diabetes care. States he has a 10+ year history of diabetes and sees his primary care provider for care.
Currently on low corrective insulin AC. Glucose stable and in range, premeal 134 to 178, @ HS 200, fasting 152 POC this AM, cr 1.7, eGFR 43.91
Due to new onset HF, will start farxiga 10 mg daily, continue Low corrective AC. Continue to HOLD Metformin due to PAN and new heart failure.
Discussed at length with patient action of Farxiga and benefits, patient is agreeable to starting. CM has researched farxiga is $10/ month. Patient states his insurance will change end of month. He requested a 3 month supply prescription for
farxiga be sent to [email or web address], done 01/12.
Recommended after discharge he test his glucose BID in pattern provided in diabetes education booklet. He verbalized understanding.
Pt will need OP follow up with PCP to have repeat BMP and determine when medically safe to resume Mounjaro.
Discussed with nurse.
Will follow
Diabetes History
- -
Type of Diabetes: 2
Pre-Admission Diabetes Regimen
01/12/25
03:48
Creatinine 1.7 H
Lab Results
Hemoglobin A1c 6.9 % (4.0-5.6) H 01/07/25 02:50
Insulin Pump Settings
IP Diabetes Regimen
01/11/25 01/11/25 01/11/25
12:25 17:20 22:41
Glucose
POC Glucose 177 H 160 H 200 H
01/12/25 01/12/25
03:48 07:42
Glucose 152 H
POC Glucose 157 H
Meal type: Lunch
Meal type: Breakfast
Amount consumed: 100%
Amount consumed: 100%
Patient Education
--- NOTE | 2025-01-12 07:56 | W.PN.CD ---
Today's Communication / Plan
-
- Continue Lasix 80 mg BID.
Impression / Plan
-
HTN emergency - acute on chronic HTN. improved.
- improved with meds. NTG drip off and tolerating Coreg and Nifedipine.
- renal artery u/s w/o stenosis.
- echo 01/06/25 EF 55%, moderate cLVH.
-cont coreg 25mg bid, and increased nifedipine to 60mg daily on 01/10
- Continue on the same regimen for now.
HFpEF - acute on chronic. severe, requiring hospitalization and close monitoring of labs/tele
- still volume overloaded.
-edema likely component of both HF and lymphedema (he uses pumps at home)
- echo EF 55%, mild cLVH.
- SGLT2i - Farxiga is started on 01/11. Cr is elevated but trending down.
-Can consider Entresto if BP is still high and when renal function improves.
-increased lasix to 80mg IV bid on 01/11 - I/O is -ve 3L
- Still volume up - continue diuresis.
-we discussed topic of RHC in case we are unable to make progress with diuresis
PAN - improving
- nephrology following.
-Losartan held - plan to switch to Entresto when Cr improves.
Tachyarrhythmia - short bursts of SVT with aberrancy, asymptomatic.
- 5 beats of NSVT previously
- mostly NSR, continue Coreg 25mg BID and monitor.
Pleural effusion - left s/p thoracentesis with 2L removed.
HLD - continue Crestor.
JOHNSON - stable on CPAP, continue.
DM - on Mounjaro for 1 month, last dose .
- per hospitalist.
Physical Exam
Vital Signs/Labs
Vital Signs
Temp Pulse Resp BP Pulse Ox
97.7 F 71 18 144/65 95
01/12/25 07:38 01/12/25 06:00 01/12/25 07:38 01/12/25 03:25 01/12/25 07:38
01/11/25 01/12/25 01/13/25
06:59 06:59 06:59
Actual Weight 115.6 kg 114 kg
01/12/25 03:48
01/12/25 03:48
PT 14.1 Sec (11.4-14.6) 01/06/25 15:02
INR 1.04 01/06/25 15:02
Magnesium 2.2 mg/dl (1.6-2.3) 01/10/25 04:03
Triglycerides 105 mg/dl (10-149) 01/07/25 02:50
LDL Cholesterol, Calc 79 mg/dl 01/07/25 02:50
VLDL Cholesterol, Calc 21 mg/dl (0-30) 01/07/25 02:50
HDL Cholesterol 30 mg/dl 01/07/25 02:50
01/06/25
12:01
Qsz-X-Jiajjthndzt Pept 7390
Physical Exam
Constitutional: No acute distress and Comfortable
EENT: Anicteric and Moist mucous membranes
Cardiovascular: Rhythm & rate is regular, Pedal edema present, JVD present and Murmur/rub/gallop absent
Respiratory: Respiratory effort normal and Wheeze Absent
GI: Soft, Non tender and Normal bowel sounds
Neuro/Psych: Alert, Oriented and AO x 3
Data Reviewed
-
Date of Service: January 12, 2025
Medical Decision Making: Reviewed Test Results, Test Interpretation and Review of Case with other Provider
EKG: Tracing Personally Visualized and interpreted
Echo: Report Reviewed by me
Labs: Labs Reviewed by me
Old Records: Reviewed
[2025-01-12] MEDS: COREG 25 MG PO ×2 (08:43→19:25)
[2025-01-12] MEDS: LOW STRENGTH ASPIRIN 81 MG PO (08:43)
[2025-01-12] MEDS: LASIX 80 MG IV ×2 (08:43→16:00)
[2025-01-12] MEDS: CRESTOR 10 MG PO (08:43)
[2025-01-12] MEDS: FLOMAX 0.4 MG PO (08:43)
[2025-01-12] MEDS: PROCARDIA XL (EXTENDED RELEASE) 60 MG PO (08:43)
[2025-01-12] MEDS: FARXIGA 10 MG PO (08:43)
[2025-01-12] MEDS: MIRALAX 17 GRAMS PO (08:44)
[2025-01-12] MEDS: NOVOLOG FLEXPEN-LOW RESISTANCE 1 UNITS SC (08:46)
--- NOTE | 2025-01-12 11:17 | W.PN.NEPH.PH ---
Today's Communication / Plan
-
Continue diuretics
Assessment/Plan
-
64 y/o male past medical history of hypertension, hyperlipidemia, and diabetes mellitus who presents with chest/back pain and uncontrolled blood pressure. Patient reports worsning lower extremity for the past several months. He report his blood
pressure has not been well controlled. He notes his PCP started him on losartan/HCTZ but he only took it one time as it made him urinate too much
Renal consult for acute kidney injury creatinine of 2 with a normal baseline 1.1 on admission.
He is status postthoracentesis 2 L on the left.
Presented with a blood pressure over 200 systolic and over 100 diastolic
Chronic NSAID use meloxicam and Advil
Impression.
Acute kidney injury creatinine of 2 with a baseline creatinine 1.1 on admission
Hypertensive urgency/chronic NSAID use meloxicam and Advil
Pleural effusion
Diastolic dysfunction
Obesity
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
Plan.
PAN likely from contrast nephropathy, recovering
Now on SGLT2
Holding ARB
diuretics
fluid issues are related to his nephrotic syndrome
Serologic workup pending
Nephrotic range proteinuria appears to be relatively new
I did find hemoglobin A1c 2017 of 12.1 and he has been diabetic for 10+ years at a minimum
Renal ultrasound shows large kidneys of 12.9 and 12.4 this is consistent with diabetic nephropathy and renalmegaly although pending a workup may proceed with kidney biopsy
-
-
Date of Service: January 12, 2025
CC / HPI / ROS
-
Chief Complaint:
Hypertensive urgency
History of Present Illness:
Hypertensive urgency shortness of breath status post IV contrast acute kidney injury
PAN/Cr better at 1.8
BP high stable
on RA
Na improved
Review of Systems:
No chest pain or shortness of breath at rest
significant edema no change
no fever
Labs
-
Labs:
WBC 9.5 10^3/uL (4.8-10.8) 01/12/25 03:48
RBC 4.48 10^6/uL (4.70-6.10) L 01/12/25 03:48
Hgb 13.5 g/dL (13.0-18.0) 01/12/25 03:48
Hct 37.8 % (39.0-52.0) L 01/12/25 03:48
Plt Count 434 10^3/uL (130-400) H D 01/12/25 03:48
Sodium 137 mmol/L (135-145) 01/12/25 03:48
Potassium 4.1 mmol/L (3.5-5.1) 01/12/25 03:48
Chloride 100 mmol/L (98-107) 01/12/25 03:48
Carbon Dioxide 28 mmol/L (22-30) 01/12/25 03:48
BUN 43 mg/dl (9-20) H 01/12/25 03:48
Creatinine 1.7 mg/dL (0.7-1.3) H 01/12/25 03:48
eGFR 43.91 01/12/25 03:48
Glucose 152 mg/dl (70-99) H 01/12/25 03:48
Calcium 8.8 mg/dl (8.4-10.2) 01/12/25 03:48
Fod-Z-Mkrqpgrywld Pept 7390 pg/ml 01/06/25 12:01
Albumin 2.7 g/dl (3.5-5.0) L 01/07/25 02:50
Physical Exam
-
Vital Signs:
Vital Signs
Temp Pulse Resp BP Pulse Ox
97.7 F 67 18 147/68 95
01/12/25 07:38 01/12/25 09:00 01/12/25 07:38 01/12/25 08:43 01/12/25 07:38
Cardiovascular:: Regular rate and rhythm
Respiratory:: Bilateral: Coarse
Lung Excursion:: Normal
Abdomen:: Nontender and Soft
Bowel Sounds:: Normal
Extremity Edema:: +3: Bilateral:
[2025-01-12 12:20] LABS: Glucose - Point of Care 141 mg/dl (70-99)
[2025-01-12] MEDS: NOVOLOG FLEXPEN-LOW RESISTANCE SC ×2 (12:35→18:37)
--- NOTE | 2025-01-12 13:03 | CM ---
CM following for DC planning needs.
Reviewed initial assessment. Pt. resides w/ spouse in a 2 story home. He is functionally indep. at baseline w/ ADLs, mobility without the use of any assisted device.
DC plan is for home without needs.
CM will cont. to follow and offer VN prior to DC for new CHF diagnosis.
--- NOTE | 2025-01-12 14:40 | W.PN.HOSP.TC ---
Today's Communication/Plan
-
diuresis
monitor renal function
Determining timing of RHC and Renal bx
Assessment / Plan
Assessment / Plan
Physical Exam
General: Comfortable, Conversant and Obese
HEENT: Normocephalic, Anicteric, Moist mucous membranes, Atraumatic and Oxygen (Nasal Cannula)
Respiratory: Clear, Non Labored Respirations and better Breath Sounds left side.
Cardiac: S1/S2, Regular Rhythm and Murmur
GI: Soft, Non Tender and Other (Protuberant)
Genito-urinary: Clear Urine
Musculoskeletal: No Clubbing, No Cyanosis and Other (+4 Pitting Edema bilateral lower extremities)
Skin: Warm and Dry; No Rash
Neuro: Awake, Alert, Oriented and Nonfocal/grossly intact
Psych: Calm
# Acute new onset Heart Failure with preserved EF
� I suspect worsening due to nephrotic syndrome
- Increase Lasix dosing
- Echo LVH with LVEF 55 %.
-Monitor Is&Os and Daily Weights
Appreciate cardiology input
� May need right heart cath depending on diuresis
# Hypertensive Emergency
- s/p nitroglycerin infusion
-Changed to Coreg 25 mg BID
Added Nifedipine, increase dose to 60 mg QD.
Held Losartan & Lasix due to SURAJ
- Normal TSH
- Added PRN hydralazine
#Suraj
Could be post renal or renal. He received IV dye
Urine positive for albumin, suspect underlying nephrotic syndrome
Held Lasix, Losartan. Creatinine is coming down from 2.2 to 1.9 , d/w jde developer, ok to start on Lasix.
No retention on bladder scan
Known urinary hesitancy, he follows with urologist.
- Started on Vesicare in OP
Consulted nephrology, appreciate help
# Constipation, MiraLAX
No abdominal pain
# Left Pleural Effusion
- s/p 2 liters thoracentesis, no Pneumothorax post procedure.
�Cultures negative, atypical cells are reactive
Diabetes Mellitus, Type II
c/w current regimen
HgbA1c 6.9
-Hold metformin,
Patient is recently on Mounjaro and lost weight
-Monitor sugars and continue coverage insulin
Consulted DM educator.
# Diabetic neuropathy
#Advanced osteoarthritis, mostly left knee. Patient was taking meloxicam daily for left knee prior to planned surgery/replacement per orthopedic
Advised to admit avoid nonsteroidal anti-inflammatory drugs due to tendency for uncontrolled blood pressure and sodium retention.
# Hypokalemia, replaced
# leukocytosis, resolved, afebrile.
#Obesity due to Excess Calories
-Encourage weight loss
Patient is recently on Mounjaro and lost weight , he denies GI symptoms, reported lost 10 Ib.
Obstructive Sleep Apnea
-Continue CPAP
DVT proph: Lovenox,
Code Status: Full Code
Anticipated Discharge: > 48 hours
Subjective/Interval History
-
Date of Service: January 12, 2025
No acute events overnight, 1.6 kg drop in weight within 24 hours
Objective Data
-
Labs:
Laboratory Results
01/12/25
03:48
WBC 9.5
Hgb 13.5
Hct 37.8 L
Plt Count 434 H D
Sodium 137
Potassium 4.1
Chloride 100
Carbon Dioxide 28
BUN 43 H
Creatinine 1.7 H
Glucose 152 H
Calcium 8.8
Vital Signs:
Vital Signs
Temp Pulse Resp BP Pulse Ox
98.4 F 63 18 147/68 95
01/12/25 12:15 01/12/25 12:15 01/12/25 12:15 01/12/25 08:43 01/12/25 12:15
I&O
01/11/25 01/12/25 01/13/25
06:59 06:59 06:59
Intake Total 1800 / 1800 1200 / 1200
Output Total 1300 / 1300 4325 / 4325 650 / 650
Balance 500 / 500 -3125 / -3125 -650 / -650
Review of Systems
-
History Source: Patient
All other systems: Not reviewed unless documented
Data Reviewed
-
Diagnostic Radiology: Report Reviewed by me
CT Scan: Report Reviewed by me
Ultrasound: Report Reviewed by me
Labs: Labs Reviewed by me
[2025-01-12] MEDS: NON-FORMULARY ITEM 10 MG SC (16:01)
[2025-01-12 18:27] LABS: Glucose - Point of Care 110 mg/dl (70-99)
[2025-01-12] MEDS: LOVENOX 40 MG SC (18:36)
--- NOTE | 2025-01-12 19:27 | PTCARENOTE ---
~9635-3312: handoff report received from nightshift RN. Pt Aox4, NSR 1st degree AVB 60s-70s on tele, SBP 140s, RA satting mid 90s, RLL fine crackles/ LLL diminished. Pt c/o L upper back pain from thoracenthesis site, PRN tylenol given. + radial
pulses and weak DP pulses, Patient independent in room. CYNDI wraps on BLE. +4 pitting edema BLE, +2 edema BUE. DM educator in to see patient. All needs met at this time, call valerio within reach.
~[id number]: CYNDI wraps removed per pt request. Patient brought in [facility] medication from home for patient, sent to pharmacy to be verified; informed both DM educator and Dr. Choudhary. Medication ordered and verified by pharmacy.
~[id number]: CYNDI wraps placed back on. VSS at this time. Hygiene care completed independently. I/Os charted. Pt ambulated in halls and room frequently. All needs met at this time, call valerio within reach. handoff report given to nightshift RN.
[2025-01-12] MEDS: ULTRAM 25 MG PO (20:51)
[2025-01-12] MEDS: MELATONIN 5 MG PO (22:10)
[2025-01-12 22:39] LABS: Glucose - Point of Care 142 mg/dl (70-99)
[2025-01-12 23:25] LABS: Complement C3 169 mg/dl (88-165)
--- NOTE | 2025-01-12 23:47 | PTCARENOTE ---
Patient received at change of shift out of bed to the chair. Reports feeling well overall. Sinus rhythm on telemetry. Oxygen saturation 95-96% on room air. Patient requesting PRN pain medications, acetaminophen and tramadol, for pain, see MAR.
Melatonin given per patient request, see MAR. Bilateral lower extremity CYNDI wraps removed at HS. Plan of care discussed with patient. Call valerio within reach. Care ongoing.
[2025-01-13] VITALS (8 sets, daily range): BP systolic 138–161; BP diastolic 71–80; BMI 34.2
[2025-01-13 04:08] LABS: Hematocrit 40.6 % (39.0-52.0); Hemoglobin 13.8 g/dL (13.0-18.0); Mean Corpuscular Hgb 29.4 pg (27.0-31.0); Mean Corpuscular Volume 86.6 fL (80.0-94.0); Mean Platelet Volume 10.4 fL (7.4-10.4); Platelet Count 506 10^3/uL (130-400); Red Blood Cell Count 4.69 10^6/uL (4.70-6.10); Red Cell Dist. Width 12.9 % (11.5-14.5); White Blood Cell Count 10.8 10^3/uL (4.8-10.8)
[2025-01-13 04:11] LABS: ALT (SGPT) 29 U/L (0-50); AST (SGOT) 30 U/L (17-59); Albumin 3.3 g/dl (3.5-5.0); Alkaline Phosphatase 103 U/L (38-126); Blood Urea Nitrogen 38 mg/dl (9-20); Calcium 9.2 mg/dl (8.4-10.2); Carbon Dioxide 32 mmol/L (22-30); Chloride 99 mmol/L (98-107); Estimated Creatinine Clearance 54 ml/min; Glucose 128 mg/dl (70-99); Potassium 4.1 mmol/L (3.5-5.1); Sodium 139 mmol/L (135-145); Total Bilirubin 0.5 mg/dl (0.2-1.3); Total Protein 5.8 g/dl (6.3-8.2); eGFR 43.91
[2025-01-13 08:10] LABS: Glucose - Point of Care 121 mg/dl (70-99)
[2025-01-13] MEDS: NOVOLOG FLEXPEN-LOW RESISTANCE SC ×2 (08:11→16:21)
--- NOTE | 2025-01-13 08:35 | PN.DE.MGMTRT ---
Insulin Management
- -
01/13/2025: Diabetes Management Consult Follow up
Patient admitted with chest/back pain and uncontrolled blood pressure associated with worsening lower extremity swelling for the past several months. PMH: HTN, HLD and T2DM, who presents He notes his PCP started him on losartan/HCTZ but he only
took it one time as it made him urinate too much. Pt was dx with severe acute on chronic HFpEF and L pleural effusion. s/p Thoracentesis - 2 L fluid 01/07. Prior to admission was taking Metformin 1000 mg BID and Mounjaro 10mg Q Friday (started 1
month ago), A1C 6.9%, Cr 1.1 on admission.
Patient is awake alert and oriented, OOB in chair able to discuss diabetes care. at bedside and very supportive. States he has a 10+ year history of diabetes and sees his primary care provider for care.
Currently on low corrective insulin AC, farxiga 10 mg daily and Mounjaro 10 mg administered yesterday (usually takes every Friday brought from home). Glucose stable and in range, premeal 110 to 152, @ HS 142, fasting 121 POC this AM, cr 1.7,
eGFR 43.91
Due to new onset HF, will continue farxiga 10 mg daily, continue Low corrective AC. Continue to HOLD Metformin due to PAN and new heart failure.
requested dietitian consult.
Discussed at length with patient action of Farxiga and benefits, patient is agreeable to starting. CM has researched farxiga is $10/ month. Patient states his insurance will change end of month. He requested a 3 month supply prescription for
farxiga be sent to [facility], done 01/12.
Recommended after discharge he test his glucose BID in pattern provided in diabetes education booklet. He verbalized understanding.
Discussed with nurse.
Will follow
Diabetes History
- -
Type of Diabetes: 2
Pre-Admission Diabetes Regimen
01/13/25
02:47
Creatinine 1.7 H
Lab Results
Hemoglobin A1c 6.9 % (4.0-5.6) H 01/07/25 02:50
Insulin Pump Settings
IP Diabetes Regimen
01/12/25 01/12/25 01/12/25
12:19 18:26 22:38
Glucose
POC Glucose 141 H 110 H 142 H
01/13/25 01/13/25
02:47 08:09
Glucose 128 H
POC Glucose 121 H
Patient Education
[2025-01-13] MEDS: COREG 25 MG PO ×2 (08:49→19:35)
[2025-01-13] MEDS: FARXIGA 10 MG PO (08:49)
[2025-01-13] MEDS: FLOMAX 0.4 MG PO (08:49)
[2025-01-13] MEDS: LOW STRENGTH ASPIRIN 81 MG PO (08:50)
[2025-01-13] MEDS: MIRALAX 17 GRAMS PO (08:50)
[2025-01-13] MEDS: LASIX 80 MG IV ×2 (08:50→15:48)
[2025-01-13] MEDS: PROCARDIA XL (EXTENDED RELEASE) 60 MG PO (08:51)
[2025-01-13] MEDS: CRESTOR 10 MG PO (08:51)
[2025-01-13] MEDS: TYLENOL 1000 MG PO ×2 (09:01→19:33)
--- NOTE | 2025-01-13 10:22 | W.PN.CD ---
Today's Communication / Plan
-
- Continue diuresis.
- Plan for Entresto once Cr is <1.3
Impression / Plan
-
HTN emergency - acute on chronic HTN. improved.
- improved with meds. NTG drip off and tolerating Coreg and Nifedipine.
- renal artery u/s w/o stenosis.
- echo 01/06/25 EF 55%, moderate cLVH.
-cont coreg 25mg bid, and increased nifedipine to 60mg daily on 01/10
- Once Cr is better, plan to add Entresto.
- Continue on the same regimen for now.
HFpEF - acute on chronic. severe, requiring hospitalization and close monitoring of labs/tele
- still volume overloaded.
-edema likely component of both HF and lymphedema (he uses pumps at home)
- echo EF 55%, mild cLVH.
- SGLT2i - Farxiga is started on 01/11. Cr is elevated but trending down.
-Can consider Entresto if BP is still high and when renal function improves.
-increased lasix to 80mg IV bid on 01/11 - I/O is -ve 2.6L
- Still volume up - continue diuresis.
-we discussed topic of RHC in case we are unable to make progress with diuresis
PAN - improving
- nephrology following.
-Losartan held - plan to switch to Entresto when Cr improves.
Tachyarrhythmia - short bursts of SVT with aberrancy, asymptomatic.
- 5 beats of NSVT previously
- mostly NSR, continue Coreg 25mg BID and monitor.
Pleural effusion - left s/p thoracentesis with 2L removed.
HLD - continue Crestor.
JOHNSON - stable on CPAP, continue.
DM - on Mounjaro for 1 month, last dose .
- per hospitalist.
Physical Exam
Vital Signs/Labs
Vital Signs
Temp Pulse Resp BP Pulse Ox
98.0 F 74 17 155/74 93
01/13/25 07:56 01/13/25 08:51 01/13/25 07:56 01/13/25 08:51 01/13/25 07:56
01/12/25 01/13/25 01/14/25
06:59 06:59 06:59
Actual Weight 114 kg 111.2 kg
01/13/25 02:47
01/13/25 02:47
PT 14.1 Sec (11.4-14.6) 01/06/25 15:02
INR 1.04 01/06/25 15:02
Magnesium 2.2 mg/dl (1.6-2.3) 01/10/25 04:03
Triglycerides 105 mg/dl (10-149) 01/07/25 02:50
LDL Cholesterol, Calc 79 mg/dl 01/07/25 02:50
VLDL Cholesterol, Calc 21 mg/dl (0-30) 01/07/25 02:50
HDL Cholesterol 30 mg/dl 01/07/25 02:50
01/06/25
12:01
Dlv-H-Sgpskbmrrsh Pept 7390
Physical Exam
Constitutional: No acute distress and Comfortable
EENT: Anicteric and Moist mucous membranes
Cardiovascular: Rhythm & rate is regular, Pedal edema present, JVD present and Murmur/rub/gallop absent
Respiratory: Respiratory effort normal and Crackles Present
GI: Soft, Non tender and Normal bowel sounds
Neuro/Psych: Alert, Oriented and AO x 3
Other: Skin
Data Reviewed
-
Date of Service: January 13, 2025
Medical Decision Making: Reviewed Test Results, Test Interpretation and Review of Case with other Provider
EKG: Tracing Personally Visualized and interpreted
Echo: Report Reviewed by me
Labs: Labs Reviewed by me
Old Records: Reviewed
--- NOTE | 2025-01-13 11:21 | W.PN.NEPH.PH ---
Today's Communication / Plan
-
Continue diuresing
Assessment/Plan
-
64 y/o male past medical history of hypertension, hyperlipidemia, and diabetes mellitus who presents with chest/back pain and uncontrolled blood pressure. Patient reports worsning lower extremity for the past several months. He report his blood
pressure has not been well controlled. He notes his PCP started him on losartan/HCTZ but he only took it one time as it made him urinate too much
Renal consult for acute kidney injury creatinine of 2 with a normal baseline 1.1 on admission.
He is status postthoracentesis 2 L on the left.
Presented with a blood pressure over 200 systolic and over 100 diastolic
Chronic NSAID use meloxicam and Advil
Impression.
Acute kidney injury creatinine of 2 with a baseline creatinine 1.1 on admission
Hypertensive urgency/chronic NSAID use meloxicam and Advil
Pleural effusion
Diastolic dysfunction
Obesity
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
Plan.
PAN likely from contrast nephropathy, recovering
Now on SGLT2
Holding ARB= plan will be to eventually start Entresto
diuretics continue
fluid issues are related to his nephrotic syndrome
Serologic workup pending= normal complement levels
Nephrotic range proteinuria appears to be relatively new
hemoglobin A1c 2017 of 12.1 and he has been diabetic for 20+ years with excessive NSAID use over the last 2 years as well on daily basis
Renal ultrasound shows large kidneys of 12.9 and 12.4 this is consistent with diabetic nephropathy and renalmegaly although pending a workup may proceed with kidney biopsy as discussed in detail again with his and patient
-
-
Date of Service: January 13, 2025
CC / HPI / ROS
-
Chief Complaint:
Hypertensive urgency
History of Present Illness:
Hypertensive urgency shortness of breath status post IV contrast acute kidney injury
PAN/Cr better at 1.8
BP high stable
on RA
Na improved
Review of Systems:
No chest pain or shortness of breath at rest
significant edema no change
Weight is coming down nicely over the last 24 hours
Labs
-
Labs:
WBC 10.8 10^3/uL (4.8-10.8) 01/13/25 02:47
RBC 4.69 10^6/uL (4.70-6.10) L 01/13/25 02:47
Hgb 13.8 g/dL (13.0-18.0) 01/13/25 02:47
Hct 40.6 % (39.0-52.0) 01/13/25 02:47
Plt Count 506 10^3/uL (130-400) H 01/13/25 02:47
Sodium 139 mmol/L (135-145) 01/13/25 02:47
Potassium 4.1 mmol/L (3.5-5.1) 01/13/25 02:47
Chloride 99 mmol/L (98-107) 01/13/25 02:47
Carbon Dioxide 32 mmol/L (22-30) H 01/13/25 02:47
BUN 38 mg/dl (9-20) H 01/13/25 02:47
Creatinine 1.7 mg/dL (0.7-1.3) H 01/13/25 02:47
eGFR 43.91 01/13/25 02:47
Glucose 128 mg/dl (70-99) H 01/13/25 02:47
Calcium 9.2 mg/dl (8.4-10.2) 01/13/25 02:47
Dcd-R-Ndkojwnpgkt Pept 7390 pg/ml 01/06/25 12:01
Albumin 3.3 g/dl (3.5-5.0) L 01/13/25 02:47
Physical Exam
-
Vital Signs:
Vital Signs
Temp Pulse Resp BP Pulse Ox
98.0 F 74 17 155/74 93
01/13/25 07:56 01/13/25 08:51 01/13/25 07:56 01/13/25 08:51 01/13/25 07:56
Cardiovascular:: Regular rate and rhythm
Respiratory:: Bilateral: Coarse
Lung Excursion:: Normal
Abdomen:: Nontender and Soft
Bowel Sounds:: Normal
Extremity Edema:: +3: Bilateral:
[2025-01-13 12:01] LABS: Glucose - Point of Care 178 mg/dl (70-99)
--- NOTE | 2025-01-13 12:27 | CM ---
CM following for DC planning needs.
Met w/ patient and spouse at bedside.
Emotional support provided due to prolonged hospitalization.
DC plan remains for home once medically stable.
Will offer VN prior to DC for new CHF dx.
[2025-01-13 12:28] LABS: Myeloperoxidase Antibody 1 AU/mL (0-19); Serine Protease-3, IgG 4 AU/mL (0-19)
[2025-01-13] MEDS: NOVOLOG FLEXPEN-LOW RESISTANCE 1 UNITS SC (13:09)
--- NOTE | 2025-01-13 13:30 | W.PN.HOSP.TC ---
Today's Communication/Plan
-
diuresis
monitor renal function, weight
Assessment / Plan
Assessment / Plan
Physical Exam
General: Comfortable, Conversant and Obese
HEENT: Normocephalic, Anicteric, Moist mucous membranes, Atraumatic and Oxygen (Nasal Cannula)
Respiratory: Clear, Non Labored Respirations and better Breath Sounds left side.
Cardiac: S1/S2, Regular Rhythm and Murmur
GI: Soft, Non Tender and Other (Protuberant)
Genito-urinary: Clear Urine
Musculoskeletal: No Clubbing, No Cyanosis and Other (+4 Pitting Edema bilateral lower extremities)
Skin: Warm and Dry; No Rash
Neuro: Awake, Alert, Oriented and Nonfocal/grossly intact
Psych: Calm
# Acute new onset Heart Failure with preserved EF
� I suspect worsening due to nephrotic syndrome
- Increase Lasix dosing
- Echo LVH with LVEF 55 %.
-Monitor Is&Os and Daily Weights
Appreciate cardiology input
� May need right heart cath depending on diuresis
# Hypertensive Emergency
- s/p nitroglycerin infusion
-Changed to Coreg 25 mg BID
Added Nifedipine, increase dose to 60 mg QD.
Held Losartan & Lasix due to SURAJ
- Normal TSH
- Added PRN hydralazine
#Suraj
Could be post renal or renal. He received IV dye
Urine positive for albumin, suspect underlying nephrotic syndrome
Held Lasix, Losartan. Creatinine is coming down from 2.2 to 1.9 , d/w hand umbrella tipper, ok to start on Lasix.
No retention on bladder scan
Known urinary hesitancy, he follows with urologist.
- Started on Vesicare in OP
Consulted nephrology, appreciate help
# Constipation, MiraLAX
No abdominal pain
# Left Pleural Effusion
- s/p 2 liters thoracentesis, no Pneumothorax post procedure.
�Cultures negative, atypical cells are reactive
Diabetes Mellitus, Type II
c/w current regimen
HgbA1c 6.9
-Hold metformin,
Patient is recently on Mounjaro and lost weight
-Monitor sugars and continue coverage insulin
Consulted DM educator.
# Diabetic neuropathy
#Advanced osteoarthritis, mostly left knee. Patient was taking meloxicam daily for left knee prior to planned surgery/replacement per orthopedic
Advised to admit avoid nonsteroidal anti-inflammatory drugs due to tendency for uncontrolled blood pressure and sodium retention.
# Hypokalemia, replaced
# leukocytosis, resolved, afebrile.
#Obesity due to Excess Calories
-Encourage weight loss
Patient is recently on Mounjaro and lost weight , he denies GI symptoms, reported lost 10 Ib.
Obstructive Sleep Apnea
-Continue CPAP
DVT proph: Lovenox,
Code Status: Full Code
Anticipated Discharge: > 48 hours
Subjective/Interval History
-
Date of Service: January 13, 2025
3kg weight drop in 24 hours
Objective Data
-
Labs:
Laboratory Results
01/13/25
02:47
WBC 10.8
Hgb 13.8
Hct 40.6
Plt Count 506 H
Sodium 139
Potassium 4.1
Chloride 99
Carbon Dioxide 32 H
BUN 38 H
Creatinine 1.7 H
Glucose 128 H
Calcium 9.2
Total Bilirubin 0.5
AST 30
ALT 29
Alkaline Phosphatase 103
Vital Signs:
Vital Signs
Temp Pulse Resp BP Pulse Ox
97.8 F 74 16 155/74 94
01/13/25 11:40 01/13/25 08:51 01/13/25 11:40 01/13/25 08:51 01/13/25 11:40
I&O
06/12/0301/13/25 01/14/25
06:59 06:59 06:59
Intake Total 1200 / 1200 240 / 240
Output Total 4325 / 4325 3050 / 3050 1725 / 1725
Balance -3125 / -3125 -2810 / -2810 -1725 / -1725
Review of Systems
-
History Source: Patient
All other systems: Not reviewed unless documented
Data Reviewed
-
Diagnostic Radiology: Report Reviewed by me
CT Scan: Report Reviewed by me
Ultrasound: Report Reviewed by me
Labs: Labs Reviewed by me
[2025-01-13 16:18] LABS: Glucose - Point of Care 136 mg/dl (70-99)
[2025-01-13 17:17] LABS: Phospholipase A2 Receptor, IgG <1:10 (<1:10)
[2025-01-13] MEDS: LOVENOX 40 MG SC (18:20)
--- NOTE | 2025-01-13 19:07 | PTCARENOTE ---
~0702-1757: handoff report received from nightshift RN. Pt Aox4, NSR 1st degree AVB 70s-80s, SBP , patient satting >90% on RA. +pulses, +2 edema B/L hads and +4 pitting edema BLE, CYNDI wraps applied to BLE. Independent in room, at bedside.
Hospitalist and DM educator in to speak with patient/ update. Scheduled lasix given, I/Os charted. Pt c/o generalized pain at this time, PRN tylenol given per pt request. All needs met at this time, call valerio within reach.
~0154-2640: Patient stable in room. Shower completed and gown and tele patches changed. All needs met at thistime, call valerio within reach.
~[id number]: patient in stable condition at this time. OOB in chair. Handoff report given to nightshift RN.
[2025-01-13] MEDS: ULTRAM 25 MG PO (20:49)
[2025-01-13 21:42] LABS: Glucose - Point of Care 134 mg/dl (70-99)
[2025-01-13] MEDS: MELATONIN 5 MG PO (22:34)
--- NOTE | 2025-01-13 23:43 | PTCARENOTE ---
Patient received at change of shift out of bed to the chair. The patient denies chest pain. Denies feeling short of breath. Oxygen saturation 95% on room air. Sinus rhythm on telemetry. Patient requesting PRN acetaminophen and tramadol for pain, see
OCT. Requesting melatonin for sleep, see MAR. Bilateral lower extremity CYNDI wraps removed at bedtime. Plan of care discussed. Call valerio within reach. Care ongoing.
[2025-01-14] VITALS (7 sets, daily range): BP systolic 102–175; BP diastolic 67–87; BMI 33.6
[2025-01-14 02:00] LABS: ANA, IgG Reflex to HEp-2 None Detected (None Detected)
[2025-01-14 05:22] LABS: Hematocrit 42.2 % (39.0-52.0); Hemoglobin 14.4 g/dL (13.0-18.0); Mean Corp Hgb Conc. 34.1 g/dL (33.0-37.0); Mean Corpuscular Hgb 29.4 pg (27.0-31.0); Mean Corpuscular Volume 86.1 fL (80.0-94.0); Mean Platelet Volume 10.2 fL (7.4-10.4); Platelet Count 497 10^3/uL (130-400); Red Cell Dist. Width 12.9 % (11.5-14.5); White Blood Cell Count 10.9 10^3/uL (4.8-10.8)
[2025-01-14 05:46] LABS: ALT (SGPT) 45 U/L (0-50); AST (SGOT) 49 U/L (17-59); Albumin 3.5 g/dl (3.5-5.0); Alkaline Phosphatase 109 U/L (38-126); Blood Urea Nitrogen 35 mg/dl (9-20); Calcium 9.6 mg/dl (8.4-10.2); Carbon Dioxide 34 mmol/L (22-30); Chloride 97 mmol/L (98-107); Estimated Creatinine Clearance 57 ml/min; Glucose 137 mg/dl (70-99); Potassium 4.2 mmol/L (3.5-5.1); Sodium 139 mmol/L (135-145); Total Bilirubin 0.7 mg/dl (0.2-1.3); eGFR 47.23
[2025-01-14 07:58] LABS: Glucose - Point of Care 120 mg/dl (70-99)
--- NOTE | 2025-01-14 08:25 | PN.DE.MGMTRT ---
Insulin Management
- -
01/14/2025: Diabetes Management Follow up
Patient admitted with chest/back pain and uncontrolled blood pressure associated with worsening lower extremity swelling for the past several months. PMH: HTN, HLD and T2DM, who presents He notes his PCP started him on losartan/HCTZ but he only
took it one time as it made him urinate too much. Pt was dx with severe acute on chronic HFpEF and L pleural effusion. s/p Thoracentesis - 2 L fluid 01/07. Prior to admission was taking Metformin 1000 mg BID and Mounjaro 10mg Q Friday (started 1
month ago). States he has a 10+ year history of diabetes and sees his primary care provider for care. A1C 6.9%, Cr 1.1 on admission.
Patient is awake alert and oriented, OOB in chair able to discuss diabetes care. States the swelling to his lower legs has improved.
Currently on low corrective insulin AC, Farxiga 10 mg daily and Mounjaro 10 mg administered on Friday ( brought it in from home).
Glucose stable and in range, premeal 121 to 178, @ HS 134, fasting 120 POC this AM, Cr 1.6, eGFR 47.23
Will make no changes to current regimen: Farxiga 10 mg daily and Low corrective AC. Continue to HOLD Metformin due to PAN and new heart failure.
requested dietitian consult.
Discussed at length with patient action of Farxiga and benefits, patient is agreeable to starting. CM has researched farxiga is $10/ month. Patient states his insurance will change end of month. He requested a 3 month supply prescription for
farxiga be sent to [facility], done 01/12.
Recommended after discharge he test his glucose BID in pattern provided in diabetes education booklet. He verbalized understanding.
Discussed with nurse. Will cont to follow
Diabetes History
- -
Type of Diabetes: 2
Pre-Admission Diabetes Regimen
01/14/25
04:23
Creatinine 1.6 H
Lab Results
Hemoglobin A1c 6.9 % (4.0-5.6) H 01/07/25 02:50
Insulin Pump Settings
IP Diabetes Regimen
01/13/25 01/13/25 01/13/25
12:00 16:16 21:41
Glucose
POC Glucose 178 H 136 H 134 H
01/14/25 01/14/25
04:23 07:57
Glucose 137 H
POC Glucose 120 H
Meal type: Lunch
Meal type: Breakfast
Amount consumed: 100%
Amount consumed: 100%
Patient Education
[2025-01-14] MEDS: NOVOLOG FLEXPEN-LOW RESISTANCE SC ×2 (08:38→16:24)
[2025-01-14] MEDS: LOW STRENGTH ASPIRIN 81 MG PO (08:39)
[2025-01-14] MEDS: FARXIGA 10 MG PO (08:39)
[2025-01-14] MEDS: PROCARDIA XL (EXTENDED RELEASE) 60 MG PO (08:39)
[2025-01-14] MEDS: CRESTOR 10 MG PO (08:39)
[2025-01-14] MEDS: COREG 25 MG PO ×2 (08:40→20:40)
[2025-01-14] MEDS: LASIX 80 MG IV ×2 (08:40→15:31)
[2025-01-14] MEDS: MIRALAX 17 GRAMS PO (08:40)
[2025-01-14] MEDS: FLOMAX 0.4 MG PO (08:40)
--- NOTE | 2025-01-14 09:16 | W.PN.NEPH.PH ---
Today's Communication / Plan
-
diurese
Assessment/Plan
-
64 y/o male past medical history of hypertension, hyperlipidemia, and diabetes mellitus who presents with chest/back pain and uncontrolled blood pressure. Patient reports worsning lower extremity for the past several months. He report his blood
pressure has not been well controlled. He notes his PCP started him on losartan/HCTZ but he only took it one time as it made him urinate too much
Renal consult for acute kidney injury creatinine of 2 with a normal baseline 1.1 on admission.
He is status postthoracentesis 2 L on the left.
Presented with a blood pressure over 200 systolic and over 100 diastolic
Chronic NSAID use meloxicam and Advil
Impression.
Acute kidney injury creatinine of 2 with a baseline creatinine 1.1 on admission
Hypertensive urgency/chronic NSAID use meloxicam and Advil
Pleural effusion
Diastolic dysfunction
Obesity
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
Plan.
PAN likely from contrast nephropathy, recovering
continue farxiga SGLT2
Holding ARB= plan will be to eventually start Entresto
diuretics continue IV today
likely DKD
Nephrotic range proteinuria appears to be relatively new
hemoglobin A1c 2017 of 12.1 and he has been diabetic for 20+ years with excessive NSAID use over the last 2 years as well on daily basis
Renal ultrasound shows large kidneys of 12.9 and 12.4 this is consistent with diabetic nephropathy and renalmegaly although pending a workup may proceed with kidney biopsy as discussed in detail again with his and patient
-
-
Date of Service: January 14, 2025
CC / HPI / ROS
-
Chief Complaint:
Hypertensive urgency
History of Present Illness:
Hypertensive urgency shortness of breath status post IV contrast acute kidney injury
PAN/Cr better at 1.6
BP high stable
on RA
Na improved
evolving alkalosis
on IV lasix for decompensated HFpEF
Review of Systems:
No chest pain or shortness of breath at rest
weight falling
Labs
-
Labs:
WBC 10.9 10^3/uL (4.8-10.8) H 01/14/25 04:23
RBC 4.90 10^6/uL (4.70-6.10) 01/14/25 04:23
Hgb 14.4 g/dL (13.0-18.0) 01/14/25 04:23
Hct 42.2 % (39.0-52.0) 01/14/25 04:23
Plt Count 497 10^3/uL (130-400) H 01/14/25 04:23
Sodium 139 mmol/L (135-145) 01/14/25 04:23
Potassium 4.2 mmol/L (3.5-5.1) 01/14/25 04:23
Chloride 97 mmol/L (98-107) L 01/14/25 04:23
Carbon Dioxide 34 mmol/L (22-30) H 01/14/25 04:23
BUN 35 mg/dl (9-20) H 01/14/25 04:23
Creatinine 1.6 mg/dL (0.7-1.3) H 01/14/25 04:23
eGFR 47.23 01/14/25 04:23
Glucose 137 mg/dl (70-99) H 01/14/25 04:23
Calcium 9.6 mg/dl (8.4-10.2) 01/14/25 04:23
Wii-Z-Njegytndkxo Pept 7390 pg/ml 01/06/25 12:01
Albumin 3.5 g/dl (3.5-5.0) 01/14/25 04:23
Physical Exam
-
Vital Signs:
Vital Signs
Temp Pulse Resp BP Pulse Ox
97.9 F 73 16 175/87 95
01/14/25 07:28 01/14/25 08:40 01/14/25 07:28 01/14/25 08:40 01/14/25 08:34
Cardiovascular:: Regular rate and rhythm
Respiratory:: Bilateral: CTA
Lung Excursion:: Normal
Abdomen:: Nontender and Soft
Bowel Sounds:: Normal
Extremity Edema:: +3: Bilateral:
--- NOTE | 2025-01-14 10:43 | CM ---
CM following for DC planning needs.
Antic. that patient will remain hospitalized thru weekend.
Antic. DC plan will be for home w/ spouse.
Will offer VN prior to DC for new dx of CHF.
Will follow.
--- NOTE | 2025-01-14 10:47 | W.PN.CD ---
Today's Communication / Plan
-
Add MRA and Entresto (likely one this admit and one as outpatient) when Cr allows and if Ok with nephrology
Continue diuresis
Impression / Plan
-
HFpEF
- Admit weight 118.4 kg
- Now weight 109.1 kg
- HF education on board
- Lasix 80 IV BID
- Working towards GDMT
- Add MRA when Cr better and if OK with nephrology
- For Entresto when Cr better
- On SGLT2-I
HTN
- Still elevated
- When Cr allows add MRA and moving to Entresto
PAN
- suspected resolving contrast nephropathy
- Nephrotic range proteinuria
- improving
- nephrology following.
Tachyarrhythmia
- short bursts of SVT with aberrancy, asymptomatic.
- 5 beats of NSVT
- BB on board
HLD, continue Crestor.
JOHNSON, on CPAP, continue.
DM
- on Mounjaro for 1 month, last dose .
- per hospitalist
BMI 33.5 on 01/14/2025 but will be a bit lower with more diuresis
- GIP/GLP agonist should help when on max dose
Subjective:
No CP feeling better
Physical Exam
Vital Signs/Labs
Vital Signs
Temp Pulse Resp BP Pulse Ox
97.9 F 73 16 175/87 95
01/14/25 07:28 01/14/25 08:40 01/14/25 07:28 01/14/25 08:40 01/14/25 08:34
01/13/25 01/14/25 01/15/25
06:59 06:59 06:59
Actual Weight 111.2 kg 109.1 kg
01/14/25 04:23
01/14/25 04:23
PT 14.1 Sec (11.4-14.6) 01/06/25 15:02
INR 1.04 01/06/25 15:02
Magnesium 2.2 mg/dl (1.6-2.3) 01/10/25 04:03
Triglycerides 105 mg/dl (10-149) 01/07/25 02:50
LDL Cholesterol, Calc 79 mg/dl 01/07/25 02:50
VLDL Cholesterol, Calc 21 mg/dl (0-30) 01/07/25 02:50
HDL Cholesterol 30 mg/dl 01/07/25 02:50
01/06/25
12:01
Ezc-B-Abebihvihvd Pept 7390
Physical Exam
Constitutional: No acute distress
EENT: Anicteric
Cardiovascular: Rhythm & rate is regular and Pedal edema present
Respiratory: Respiratory effort normal and Lungs clear to auscul.
GI: Soft and Distention absent
Data Reviewed
-
Date of Service: January 14, 2025
[2025-01-14 11:39] LABS: Glucose - Point of Care 182 mg/dl (70-99)
[2025-01-14] MEDS: NOVOLOG FLEXPEN-LOW RESISTANCE 1 UNITS SC (13:14)
--- NOTE | 2025-01-14 14:58 | W.PN.HOSP.TC ---
Today's Communication/Plan
-
Diuresis
Assessment / Plan
Assessment / Plan
Physical Exam
General: Comfortable, Conversant and Obese
HEENT: Normocephalic, Anicteric, Moist mucous membranes, Atraumatic and Oxygen (Nasal Cannula)
Respiratory: Clear, Non Labored Respirations and better Breath Sounds left side.
Cardiac: S1/S2, Regular Rhythm and Murmur
GI: Soft, Non Tender and Other (Protuberant)
Genito-urinary: Clear Urine
Musculoskeletal: No Clubbing, No Cyanosis and Other (+4 Pitting Edema bilateral lower extremities)
Skin: Warm and Dry; No Rash
Neuro: Awake, Alert, Oriented and Nonfocal/grossly intact
Psych: Calm
# Acute new onset Heart Failure with preserved EF
� I suspect worsening due to nephrotic syndrome
- Increase Lasix dosing
- Echo LVH with LVEF 55 %.
-Monitor Is&Os and Daily Weights
Appreciate cardiology input
� May need right heart cath depending on diuresis
# Hypertensive Emergency
- s/p nitroglycerin infusion
-Changed to Coreg 25 mg BID
Added Nifedipine, increase dose to 60 mg QD.
Held Losartan & Lasix due to SURAJ
- Normal TSH
- Added PRN hydralazine
#Suraj
Could be post renal or renal. He received IV dye
Urine positive for albumin, suspect underlying nephrotic syndrome
Held Lasix, Losartan. Creatinine is coming down from 2.2 to 1.9 , d/w house officer, ok to start on Lasix.
No retention on bladder scan
Known urinary hesitancy, he follows with urologist.
- Started on Vesicare in OP
Consulted nephrology, appreciate help
# Constipation, MiraLAX
No abdominal pain
# Left Pleural Effusion
- s/p 2 liters thoracentesis, no Pneumothorax post procedure.
�Cultures negative, atypical cells are reactive
Diabetes Mellitus, Type II
c/w current regimen
HgbA1c 6.9
-Hold metformin,
Patient is recently on Mounjaro and lost weight
-Monitor sugars and continue coverage insulin
Consulted DM educator.
# Diabetic neuropathy
#Advanced osteoarthritis, mostly left knee. Patient was taking meloxicam daily for left knee prior to planned surgery/replacement per orthopedic
Advised to admit avoid nonsteroidal anti-inflammatory drugs due to tendency for uncontrolled blood pressure and sodium retention.
# Hypokalemia, replaced
# leukocytosis, resolved, afebrile.
#Obesity due to Excess Calories
-Encourage weight loss
Patient is recently on Mounjaro and lost weight , he denies GI symptoms, reported lost 10 Ib.
Obstructive Sleep Apnea
-Continue CPAP
DVT proph: Lovenox,
Code Status: Full Code
Anticipated Discharge: > 48 hours
Subjective/Interval History
-
Date of Service: January 14, 2025
no acute events; continue to drop;
Objective Data
-
Labs:
Laboratory Results
01/14/25
04:23
WBC 10.9 H
Hgb 14.4
Hct 42.2
Plt Count 497 H
Sodium 139
Potassium 4.2
Chloride 97 L
Carbon Dioxide 34 H
BUN 35 H
Creatinine 1.6 H
Glucose 137 H
Calcium 9.6
Total Bilirubin 0.7
AST 49
ALT 45
Alkaline Phosphatase 109
Vital Signs:
Vital Signs
Temp Pulse Resp BP Pulse Ox
98.0 F 71 16 128/70 95
01/14/25 11:27 01/14/25 11:10 01/14/25 11:27 01/14/25 11:10 01/14/25 11:27
I&O
01/13/25 01/14/25 01/15/25
06:59 06:59 06:59
Intake Total 240 / 240 540 / 540
Output Total 3050 / 3050 4625 / 4625 1250 / 1250
Balance -2810 / -2810 -4625 / -4625 -710 / -710
Review of Systems
-
History Source: Patient
All other systems: Not reviewed unless documented
Data Reviewed
-
Diagnostic Radiology: Report Reviewed by me
CT Scan: Report Reviewed by me
Ultrasound: Report Reviewed by me
Labs: Labs Reviewed by me
[2025-01-14] MEDS: TYLENOL 1000 MG PO (15:30)
[2025-01-14 16:14] LABS: Glucose - Point of Care 148 mg/dl (70-99)
[2025-01-14] MEDS: LOVENOX 40 MG SC (18:09)
--- NOTE | 2025-01-14 18:47 | PTCARENOTE ---
Pt OOB to chair and walking in halls today with encouragement. Pt reports some left knee pain, he states he is awaiting a knee replacement. Pt continues to diurese well, weight down 20lbs. Telemetry shows sinus rhythm.
[2025-01-14] MEDS: ULTRAM 25 MG PO (20:40)
[2025-01-14 22:21] LABS: Glucose - Point of Care 140 mg/dl (70-99)
[2025-01-15 04:06] VITALS: BP 151/72
[2025-01-15 04:27] VITALS: BMI 33.4
[2025-01-15 05:08] LABS: Hematocrit 43.4 % (39.0-52.0); Hemoglobin 14.6 g/dL (13.0-18.0); Mean Corp Hgb Conc. 33.6 g/dL (33.0-37.0); Mean Corpuscular Volume 86.3 fL (80.0-94.0); Mean Platelet Volume 10.2 fL (7.4-10.4); Platelet Count 536 10^3/uL (130-400); Red Blood Cell Count 5.03 10^6/uL (4.70-6.10); Red Cell Dist. Width 12.8 % (11.5-14.5); White Blood Cell Count 10.9 10^3/uL (4.8-10.8)
[2025-01-15 05:38] LABS: ALT (SGPT) 56 U/L (0-50); AST (SGOT) 45 U/L (17-59); Albumin 3.6 g/dl (3.5-5.0); Alkaline Phosphatase 107 U/L (38-126); Blood Urea Nitrogen 37 mg/dl (9-20); Calcium 9.9 mg/dl (8.4-10.2); Carbon Dioxide 36 mmol/L (22-30); Chloride 96 mmol/L (98-107); Estimated Creatinine Clearance 57 ml/min; Glucose 122 mg/dl (70-99); Potassium 4.1 mmol/L (3.5-5.1); Sodium 138 mmol/L (135-145); Total Bilirubin 0.5 mg/dl (0.2-1.3); Total Protein 6.2 g/dl (6.3-8.2); eGFR 47.23
[2025-01-15 07:17] VITALS: BP 159/77
[2025-01-15 07:20] LABS: Glucose - Point of Care 140 mg/dl (70-99)
[2025-01-15] MEDS: NOVOLOG FLEXPEN-LOW RESISTANCE SC ×3 (07:26→17:41)
[2025-01-15] MEDS: PROCARDIA XL (EXTENDED RELEASE) 60 MG PO (07:39)
[2025-01-15] MEDS: CRESTOR 10 MG PO (07:39)
[2025-01-15] MEDS: LOW STRENGTH ASPIRIN 81 MG PO (07:39)
[2025-01-15] MEDS: COREG 25 MG PO ×2 (07:39→20:02)
[2025-01-15] MEDS: FARXIGA 10 MG PO (07:39)
[2025-01-15] MEDS: FLOMAX 0.4 MG PO (07:40)
[2025-01-15] MEDS: LASIX 80 MG IV (07:40)
[2025-01-15] MEDS: FLUSH (NSS) 2 FLUSH IV (07:40)
[2025-01-15 08:24] LABS: IgA 323 mg/dL (68-408); IgG 356 mg/dL (768-1632); IgM 90 mg/dL (35-263)
--- NOTE | 2025-01-15 09:43 | W.PN.NEPH.PH ---
Today's Communication / Plan
-
reduce lasix
Assessment/Plan
-
64 y/o male past medical history of hypertension, hyperlipidemia, and diabetes mellitus who presents with chest/back pain and uncontrolled blood pressure. Patient reports worsning lower extremity for the past several months. He report his blood
pressure has not been well controlled. He notes his PCP started him on losartan/HCTZ but he only took it one time as it made him urinate too much
Renal consult for acute kidney injury creatinine of 2 with a normal baseline 1.1 on admission.
He is status postthoracentesis 2 L on the left.
Presented with a blood pressure over 200 systolic and over 100 diastolic
Chronic NSAID use meloxicam and Advil
Impression.
Acute kidney injury creatinine of 2 with a baseline creatinine 1.1 on admission
Hypertensive urgency/chronic NSAID use meloxicam and Advil
Pleural effusion
Diastolic dysfunction
Obesity
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
Plan.
PAN likely from contrast nephropathy, recovering
continue farxiga SGLT2
Holding ARB. plan will be to eventually start Entresto
diuretics continue IV today, convert to po tomorrow, BID
likely DKD, no biopsy is required
no issues with tramadol from renal perspective
d/w patient and
-
-
Date of Service: January 15, 2025
CC / HPI / ROS
-
Chief Complaint:
Hypertensive urgency
History of Present Illness:
Hypertensive urgency shortness of breath status post IV contrast acute kidney injury
PAN/Cr stable at 1.6
BP high stable
on RA
Na improved
evolving alkalosis 36
on IV lasix for decompensated HFpEF
Review of Systems:
No chest pain or shortness of breath at rest
weight falling
Labs
-
Labs:
WBC 10.9 10^3/uL (4.8-10.8) H 01/15/25 04:34
RBC 5.03 10^6/uL (4.70-6.10) 01/15/25 04:34
Hgb 14.6 g/dL (13.0-18.0) 01/15/25 04:34
Hct 43.4 % (39.0-52.0) 01/15/25 04:34
Plt Count 536 10^3/uL (130-400) H 01/15/25 04:34
Sodium 138 mmol/L (135-145) 01/15/25 04:34
Potassium 4.1 mmol/L (3.5-5.1) 01/15/25 04:34
Chloride 96 mmol/L (98-107) L 01/15/25 04:34
Carbon Dioxide 36 mmol/L (22-30) H 01/15/25 04:34
BUN 37 mg/dl (9-20) H 01/15/25 04:34
Creatinine 1.6 mg/dL (0.7-1.3) H 01/15/25 04:34
eGFR 47.23 01/15/25 04:34
Glucose 122 mg/dl (70-99) H 01/15/25 04:34
Calcium 9.9 mg/dl (8.4-10.2) 01/15/25 04:34
Lns-P-Eyfynmazmto Pept 7390 pg/ml 01/06/25 12:01
Albumin 3.6 g/dl (3.5-5.0) 01/15/25 04:34
Physical Exam
-
Vital Signs:
Vital Signs
Temp Pulse Resp BP Pulse Ox
98.1 F 76 16 159/77 95
01/15/25 07:23 01/15/25 07:23 01/15/25 07:23 01/15/25 07:17 01/15/25 07:40
Cardiovascular:: Regular rate and rhythm
Respiratory:: Bilateral: Coarse
Lung Excursion:: Normal
Abdomen:: Nontender and Soft
Bowel Sounds:: Normal
Extremity Edema:: +3: Bilateral:
[2025-01-15 09:57] LABS: Albumin 2.46 g/dL (3.75-5.01); Alpha 1 Globulin 0.57 g/dL (0.19-0.46); Alpha 2 Globulin 1.24 g/dL (0.48-1.05); SPEP IFE Reflex IFE Done; Total Protein-Electrophoresis 5.6 g/dL (6.3-8.2)
[2025-01-15] MEDS: TYLENOL 1000 MG PO (10:05)
[2025-01-15] MEDS: MIRALAX PO (11:43)
[2025-01-15 11:45] VITALS: BP 121/66
--- NOTE | 2025-01-15 12:28 | W.PN.CD ---
Addendum entered and electronically signed by Sujit Renae MD 01/15/25 16:15:
Patient seen and examined in collaboration with TRADE FACILITATOR; agree with below.
- Lasix 80 mg PO BID tomorrow.
- Continue other cardiac medications.
Original Note:
Today's Communication / Plan
-
Diuresis per nephrology
GDMT as tolerated.
Close monitoring of renal function
Impression / Plan
-
HFpEF
-
- HF education ongoing
- con't Lasix 80 IV BID per nephrology
- Working towards GDMT
- For Entresto when Cr better/stable and ok with nephrology
- On SGLT2-I, reassess MRA after diuresis
-weight 118.4 kg to 108.7 kg
-s/p L thoracentesis 2000 ml 01/07/25
HTN
- improving
PAN
- suspected resolving contrast nephropathy
- Nephrotic range proteinuria
- improving
- nephrology following.
Tachyarrhythmia
- short bursts of SVT with aberrancy, asymptomatic.
- 5 beats of NSVT, tele stable
- BB on board
HLD, continue Crestor.
JOHNSON, on CPAP, continue.
DM
- on Mounjaro for 1 month, last dose .
- per hospitalist
BMI 33.5 on 01/14/2025 but will be a bit lower with more diuresis
- GIP/GLP agonist should help when on max dose
Subjective:
Pt feels breathing and LE edema are improving. No CP,palps,
Physical Exam
Vital Signs/Labs
Vital Signs
Temp Pulse Resp BP Pulse Ox
98.2 F 69 20 121/66 94
01/15/25 11:45 01/15/25 11:45 01/15/25 11:45 01/15/25 11:45 01/15/25 11:45
01/14/25 01/15/25 01/16/25
06:59 06:59 06:59
Actual Weight 109.1 kg 108.7 kg
01/15/25 04:34
01/15/25 04:34
PT 14.1 Sec (11.4-14.6) 01/06/25 15:02
INR 1.04 01/06/25 15:02
Magnesium 2.2 mg/dl (1.6-2.3) 01/10/25 04:03
Triglycerides 105 mg/dl (10-149) 01/07/25 02:50
LDL Cholesterol, Calc 79 mg/dl 01/07/25 02:50
VLDL Cholesterol, Calc 21 mg/dl (0-30) 01/07/25 02:50
HDL Cholesterol 30 mg/dl 01/07/25 02:50
01/06/25
12:01
Jdt-W-Cxfscqivyxr Pept 7390
Physical Exam
Constitutional: No acute distress
Cardiovascular: Rhythm & rate is regular and Pedal edema present (mod-severe bilat LE edema, wraps in place. )
Respiratory: Respiratory effort normal and Lungs clear to auscul. (decreased L base)
Neuro/Psych: AO x 3
Data Reviewed
-
Date of Service: January 15, 2025
EKG: Other (Tele: NSR 70's )
Labs: Labs Reviewed by me
[2025-01-15 12:45] LABS: Glucose - Point of Care 139 mg/dl (70-99)
[2025-01-15 15:51] VITALS: BP 138/67
--- NOTE | 2025-01-15 17:22 | PTCARENOTE ---
The patient has been oob and ambulating in the halls without assist. His gait has been steady. His vital signs remained stable and NSR has been noted on the monitor throughout the shift. K-pad applied to lower back as per order. Heart failure
teaching reviewed multiple times throughout the shift. Gian stockings applied and the patient stated that they feel better than the Thee wraps.
[2025-01-15 17:32] LABS: Glucose - Point of Care 147 mg/dl (70-99)
[2025-01-15] MEDS: LOVENOX 40 MG SC (18:07)
[2025-01-15 20:00] VITALS: BP 153/75
--- NOTE | 2025-01-15 21:09 | PTCARENOTE ---
Assumed care of patient at 1900. Pt ambulating the halls at the time of shift report. Assessed pt at 1999. Vitals stable. Pt with no c/o of pain at the time. 2000 med given. Asking for melatonin at 0. Pt instructed to ring for any assistance.
[2025-01-15 21:32] LABS: Glucose - Point of Care 139 mg/dl (70-99)
[2025-01-15] MEDS: ULTRAM 25 MG PO (21:34)
[2025-01-15] MEDS: MELATONIN 5 MG PO (21:34)
[2025-01-16] VITALS (7 sets, daily range): BP systolic 130–168; BP diastolic 67–82; BMI 33.1
[2025-01-16 04:41] LABS: Hematocrit 42.3 % (39.0-52.0); Hemoglobin 14.8 g/dL (13.0-18.0); Mean Corpuscular Hgb 30.1 pg (27.0-31.0); Mean Corpuscular Volume 86.2 fL (80.0-94.0); Mean Platelet Volume 10.1 fL (7.4-10.4); Platelet Count 450 10^3/uL (130-400); Red Blood Cell Count 4.91 10^6/uL (4.70-6.10); Red Cell Dist. Width 12.7 % (11.5-14.5); White Blood Cell Count 9.9 10^3/uL (4.8-10.8)
[2025-01-16 05:09] LABS: ALT (SGPT) 52 U/L (0-50); AST (SGOT) 43 U/L (17-59); Albumin 3.5 g/dl (3.5-5.0); Alkaline Phosphatase 92 U/L (38-126); Blood Urea Nitrogen 35 mg/dl (9-20); Calcium 9.7 mg/dl (8.4-10.2); Carbon Dioxide 35 mmol/L (22-30); Chloride 97 mmol/L (98-107); Estimated Creatinine Clearance 57 ml/min; Glucose 114 mg/dl (70-99); Potassium 4.2 mmol/L (3.5-5.1); Sodium 139 mmol/L (135-145); Total Bilirubin 0.5 mg/dl (0.2-1.3); eGFR 47.23
[2025-01-16] MEDS: TYLENOL 1000 MG PO (05:47)
[2025-01-16 07:29] LABS: Glucose - Point of Care 134 mg/dl (70-99)
[2025-01-16] MEDS: NOVOLOG FLEXPEN-LOW RESISTANCE SC ×2 (07:49→16:53)
[2025-01-16] MEDS: CRESTOR 10 MG PO (07:56)
[2025-01-16] MEDS: FLOMAX 0.4 MG PO (07:56)
[2025-01-16] MEDS: PROCARDIA XL (EXTENDED RELEASE) 60 MG PO (07:56)
[2025-01-16] MEDS: LOW STRENGTH ASPIRIN 81 MG PO (07:56)
[2025-01-16] MEDS: FARXIGA 10 MG PO (07:56)
[2025-01-16] MEDS: LASIX 80 MG PO ×2 (07:56→16:02)
[2025-01-16] MEDS: COREG 25 MG PO ×2 (07:56→19:47)
[2025-01-16] MEDS: FLUSH (NSS) 1 FLUSH IV (07:57)
[2025-01-16] MEDS: MIRALAX PO (07:57)
--- NOTE | 2025-01-16 08:09 | W.PN.HOSP.TC ---
Today's Communication/Plan
-
see AP
Assessment / Plan
Assessment / Plan
A/P:
# Acute new onset Heart Failure with preserved EF
suspect worsening due to nephrotic syndrome
Echo LVH with LVEF 55 %.
now on PO Lasix 80 mg BID
Monitor Is&Os and Daily Weights
Appreciate cardiology input
# Hypertensive Emergency
s/p nitroglycerin infusion
Added Coreg 25 mg BID
Added Nifedipine, increased to 60 mg QD.
Losartan on hold due to PAN
Normal TSH
PRN hydralazine
# PAN, likely from contrast nephropathy
Creatinine improving: from 2.2 to 1.6 today
resumed lasix
No retention on bladder scan
Known urinary hesitancy, he follows with urologist.
Started on Vesicare in OP
Consulted nephrology, appreciate help
# Constipation,
MiraLAX
No abdominal pain
# Left Pleural Effusion
s/p 2 liters thoracentesis, no Pneumothorax post procedure.
Cultures negative, atypical cells are reactive
# Diabetes Mellitus, Type II
# Diabetic neuropathy
c/w current regimen
HgbA1c 6.9
Hold metformin,
Patient is recently on Mounjaro and lost weight
Monitor sugars and continue coverage insulin
Consulted DM educator.
# Advanced osteoarthritis, mostly left knee.
Patient was taking meloxicam daily for left knee prior to planned surgery/replacement per orthopedic
Advised to admit avoid nonsteroidal anti-inflammatory drugs due to tendency for uncontrolled blood pressure and sodium retention.
# Hypokalemia, replaced
# Reactive leukocytosis, resolved, afebrile.
# Obesity due to Excess Calories
Encourage weight loss
Patient is recently on Mounjaro and lost weight , he denies GI symptoms, reported lost 10 Ib.
# Obstructive Sleep Apnea
Continue CPAP
DVT proph: Lovenox SQ
Code Status: Full Code
total time spent 51 min
Anticipated Discharge: Within 24 hours
Subjective/Interval History
-
Date of Service: January 16, 2025
Objective Data
-
Labs:
Laboratory Results
01/16/25
04:10
WBC 9.9
Hgb 14.8
Hct 42.3
Plt Count 450 H
Sodium 139
Potassium 4.2
Chloride 97 L
Carbon Dioxide 35 H
BUN 35 H
Creatinine 1.6 H
Glucose 114 H
Calcium 9.7
Total Bilirubin 0.5
AST 43
ALT 52 H
Alkaline Phosphatase 92
Vital Signs:
Vital Signs
Temp Pulse Resp BP Pulse Ox
36.8 C 73 16 137/78 96
01/16/25 07:26 01/16/25 07:27 01/16/25 07:26 01/16/25 07:27 01/16/25 07:26
I&O
01/15/25 01/16/25 01/17/25
06:59 06:59 06:59
Intake Total 780 / 780 1260 / 1260
Output Total 2525 / 2525 3300 / 3300 425 / 425
Balance -1745 / -1745 -2040 / -2040 -425 / -425
Review of Systems
-
History Source: Patient
All other systems: Not reviewed unless documented
Physical Exam
-
General: Well Developed, Well Nourished, No Apparent Distress, Comfortable and Conversant; Negative Respiratory Distress
HEENT: Normocephalic, Atraumatic, Nose Appears Normal and Ears Appear Normal; Negative Oxygen
Respiratory: Clear to Auscultation and Non Labored Respirations; Negative Accessory Resp Muscle Use
Cardiac: Regular Rhythm and S1/S2
GI: Soft, Nontender, Nondistended and Normal Bowel Sounds
Musculoskeletal: Edema, Right Lower Extrem and Edema, Left Lower Extrem
Skin: Warm and Dry
Neuro: Awake, Alert, Oriented and AO x 3
Psych: Calm and Intact Judgement/Insight
Data Reviewed
-
Labs: Labs Reviewed by me
--- NOTE | 2025-01-16 09:46 | W.PN.NEPH.PH ---
Today's Communication / Plan
-
continue BID lasix
Assessment/Plan
-
64 y/o male past medical history of hypertension, hyperlipidemia, and diabetes mellitus who presents with chest/back pain and uncontrolled blood pressure. Patient reports worsning lower extremity for the past several months. He report his blood
pressure has not been well controlled. He notes his PCP started him on losartan/HCTZ but he only took it one time as it made him urinate too much
Renal consult for acute kidney injury creatinine of 2 with a normal baseline 1.1 on admission.
He is status postthoracentesis 2 L on the left.
Presented with a blood pressure over 200 systolic and over 100 diastolic
Chronic NSAID use meloxicam and Advil
Impression.
Acute kidney injury creatinine of 2 with a baseline creatinine 1.1 on admission
Hypertensive urgency/chronic NSAID use meloxicam and Advil
Pleural effusion
Diastolic dysfunction
Obesity
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
Plan.
continue farxiga SGLT2
may start Entresto when desired
lasix 80mg po BID, may only need daily with PRN BID dosing as OP
likely DKD, no biopsy is required
no issues with tramadol from renal perspective
-
-
Date of Service: January 16, 2025
CC / HPI / ROS
-
Chief Complaint:
Hypertensive urgency
History of Present Illness:
Hypertensive urgency shortness of breath status post IV contrast acute kidney injury
PAN/Cr stable at 1.6
BP high stable
on RA
Na normal
evolving alkalosis 35
on po lasix for decompensated HFpEF
Review of Systems:
No chest pain or shortness of breath at rest
weight falling
Labs
-
Labs:
WBC 9.9 10^3/uL (4.8-10.8) 01/16/25 04:10
RBC 4.91 10^6/uL (4.70-6.10) 01/16/25 04:10
Hgb 14.8 g/dL (13.0-18.0) 01/16/25 04:10
Hct 42.3 % (39.0-52.0) 01/16/25 04:10
Plt Count 450 10^3/uL (130-400) H 01/16/25 04:10
Sodium 139 mmol/L (135-145) 01/16/25 04:10
Potassium 4.2 mmol/L (3.5-5.1) 01/16/25 04:10
Chloride 97 mmol/L (98-107) L 01/16/25 04:10
Carbon Dioxide 35 mmol/L (22-30) H 01/16/25 04:10
BUN 35 mg/dl (9-20) H 01/16/25 04:10
Creatinine 1.6 mg/dL (0.7-1.3) H 01/16/25 04:10
eGFR 47.23 01/16/25 04:10
Glucose 114 mg/dl (70-99) H 01/16/25 04:10
Calcium 9.7 mg/dl (8.4-10.2) 01/16/25 04:10
Nhm-A-Hcczooohqei Pept 7390 pg/ml 01/06/25 12:01
Albumin 3.5 g/dl (3.5-5.0) 01/16/25 04:10
Physical Exam
-
Vital Signs:
Vital Signs
Temp Pulse Resp BP Pulse Ox
98.2 F 73 16 137/78 96
01/16/25 07:26 01/16/25 07:27 01/16/25 07:26 01/16/25 07:27 01/16/25 08:25
Cardiovascular:: Regular rate and rhythm
Respiratory:: Bilateral: Coarse
Lung Excursion:: Normal
Abdomen:: Nontender and Soft
Bowel Sounds:: Normal
Extremity Edema:: +3: Bilateral:
[2025-01-16 12:20] LABS: Glucose - Point of Care 174 mg/dl (70-99)
[2025-01-16] MEDS: NOVOLOG FLEXPEN-LOW RESISTANCE 1 UNITS SC (13:30)
--- NOTE | 2025-01-16 14:55 | W.PN.CD ---
Addendum entered and electronically signed by uSjit Renae MD 01/16/25 16:50:
Patient seen and examined in collaboration with PGY 2 Resident; agree with below.
- No major events overnight; denies cardiac symptoms.
- Physical examination: Regular rate and rhythm, no murmurs/rubs/gallops; clear to auscultation bilaterally; 3-4+ bilateral pitting edema.
- HFpEF: Continue Lasix 80 mg PO BID, which should be home regimen.
- Continue other medications.
- Outpatient follow-up with Cardiology.
Original Note:
Documented by User: Armen Lepe MD, Resident 01/16/25 14:57
Today's Communication / Plan
-
* Continue oral furosemide 80 twice a day.
* Monitor overnight; possible discharge tomorrow.
Impression / Plan
-
HFpEF
-
- HF education ongoing
- con't Lasix 80 PO BID per nephrology
- Working towards GDMT
- For Entresto when Cr better/stable and ok with nephrology
- On SGLT2-I, reassess MRA after diuresis
-weight 118.4 kg to 107.6 kg
-s/p L thoracentesis 2000 ml 01/07/25
HTN
- improving
PAN
- suspected resolving contrast nephropathy
- Nephrotic range proteinuria
- improving
- nephrology following.
Tachyarrhythmia
- short bursts of SVT with aberrancy, asymptomatic.
- 5 beats of NSVT, tele stable
- BB on board
HLD, continue Crestor.
JOHNSON, on CPAP, continue.
DM
- on Mounjaro for 1 month, last dose .
- per hospitalist
BMI 33.5 on 01/14/2025 but will be a bit lower with more diuresis
- GIP/GLP agonist should help when on max dose
Subjective:
Pt feels breathing and LE edema are improving. No CP,palps,
Physical Exam
Vital Signs/Labs
Vital Signs
Temp Pulse Resp BP Pulse Ox
97.8 F 65 19 130/69 97
01/16/25 11:59 01/16/25 11:59 01/16/25 11:59 01/16/25 11:59 01/16/25 11:59
01/15/25 01/16/25 01/17/25
06:59 06:59 06:59
Actual Weight 108.7 kg 107.6 kg
01/16/25 04:10
01/16/25 04:10
PT 14.1 Sec (11.4-14.6) 01/06/25 15:02
INR 1.04 01/06/25 15:02
Magnesium 2.2 mg/dl (1.6-2.3) 01/10/25 04:03
Triglycerides 105 mg/dl (10-149) 01/07/25 02:50
LDL Cholesterol, Calc 79 mg/dl 01/07/25 02:50
VLDL Cholesterol, Calc 21 mg/dl (0-30) 01/07/25 02:50
HDL Cholesterol 30 mg/dl 01/07/25 02:50
01/06/25
12:01
Xwm-E-Dxvjwnlktpx Pept 7390
Physical Exam
Constitutional: No acute distress
Cardiovascular: Rhythm & rate is regular and Pedal edema present (mod-severe bilat LE edema, wraps in place. )
Respiratory: Respiratory effort normal and Lungs clear to auscul. (decreased L base)
Neuro/Psych: AO x 3
Data Reviewed
-
Date of Service: January 16, 2025

Documented by User: Sujit Renae MD 01/16/25 16:48
Data Reviewed
-
EKG: Tracing Personally Visualized and interpreted (Telemetry: Sinus rhythm)
Medical Tests (PFT, Pathology etc): Discussed with Patient
Labs: Labs Reviewed by me
[2025-01-16 16:50] LABS: Glucose - Point of Care 150 mg/dl (70-99)
[2025-01-16] MEDS: LOVENOX 40 MG SC (17:53)
[2025-01-16] MEDS: MELATONIN 5 MG PO (21:40)
[2025-01-16] MEDS: ULTRAM 25 MG PO (21:40)
[2025-01-16 21:55] LABS: Glucose - Point of Care 123 mg/dl (70-99)
--- NOTE | 2025-01-16 22:40 | PTCARENOTE ---
Received patient at change of shift. SR with a first degree HB on the monitor, HR in the 60s. PRN melatonin administered as per pt request. Pt complains of 6/10 lower back pain, PRN pain medication administered, see OCT. Call valerio within reach.
[2025-01-17] VITALS (9 sets, daily range): BP systolic 127–163; BP diastolic 59–82; PULSE 67; BMI 33.1
[2025-01-17] MEDS: TYLENOL 1000 MG PO (02:14)
[2025-01-17 02:32] LABS: Hematocrit 40.8 % (39.0-52.0); Hemoglobin 14.5 g/dL (13.0-18.0); Mean Corp Hgb Conc. 35.5 g/dL (33.0-37.0); Mean Corpuscular Hgb 30.3 pg (27.0-31.0); Mean Corpuscular Volume 85.4 fL (80.0-94.0); Mean Platelet Volume 10.2 fL (7.4-10.4); Platelet Count 442 10^3/uL (130-400); Red Blood Cell Count 4.78 10^6/uL (4.70-6.10); Red Cell Dist. Width 12.7 % (11.5-14.5); White Blood Cell Count 10.5 10^3/uL (4.8-10.8)
[2025-01-17 02:53] LABS: ALT (SGPT) 63 U/L (0-50); AST (SGOT) 50 U/L (17-59); Albumin 3.5 g/dl (3.5-5.0); Alkaline Phosphatase 97 U/L (38-126); Blood Urea Nitrogen 35 mg/dl (9-20); Calcium 9.8 mg/dl (8.4-10.2); Carbon Dioxide 30 mmol/L (22-30); Chloride 97 mmol/L (98-107); Estimated Creatinine Clearance 57 ml/min; Glucose 109 mg/dl (70-99); Magnesium 2.3 mg/dl (1.6-2.3); Potassium 4.2 mmol/L (3.5-5.1); Sodium 137 mmol/L (135-145); Total Bilirubin 0.5 mg/dl (0.2-1.3); Total Protein 6.2 g/dl (6.3-8.2); eGFR 47.23
[2025-01-17 07:20] LABS: Glucose - Point of Care 112 mg/dl (70-99)
--- NOTE | 2025-01-17 08:08 | W.PN.HOSP.TC ---
Today's Communication/Plan
-
see A/P
Card and renal on board, defer final dosing of lasix to consultants
Defer starting Entresto per card
Assessment / Plan
Assessment / Plan
A/P:
# Acute new onset Heart Failure with preserved EF
suspect worsening due to nephrotic syndrome
Echo LVH with LVEF 55 %.
now on PO Lasix 80 mg BID, final dosing per card/renal
Monitor Is&Os and Daily Weights
Cont Farxiga
Appreciate cardiology input, defer Entresto to Card
# Hypertensive Emergency
s/p nitroglycerin infusion
Added Coreg 25 mg BID
Added Nifedipine, increased to 60 mg QD.
Losartan on hold due to PAN
Normal TSH
PRN hydralazine
# PAN, likely from contrast nephropathy
Creatinine improving: from 2.2 to 1.6 and remained at 1.6 for several days
resumed lasix
No retention on bladder scan
Known urinary hesitancy, he follows with urologist.
Started on Vesicare in OP
Consulted nephrology, appreciate help
# Constipation,
MiraLAX
No abdominal pain
# Left Pleural Effusion
s/p 2 liters thoracentesis, no Pneumothorax post procedure.
Cultures negative, atypical cells are reactive
# Diabetes Mellitus, Type II
# Diabetic neuropathy
c/w current regimen
HgbA1c 6.9
Hold metformin,
Patient is recently on Mounjaro and lost weight
Monitor sugars and continue coverage insulin
Consulted DM educator.
# Advanced osteoarthritis, mostly left knee.
Patient was taking meloxicam daily for left knee prior to planned surgery/replacement per orthopedic
Advised to admit avoid nonsteroidal anti-inflammatory drugs due to tendency for uncontrolled blood pressure and sodium retention.
# Hypokalemia, replaced
# Reactive leukocytosis, resolved, afebrile.
# Obesity due to Excess Calories
Encourage weight loss
Patient is recently on Mounjaro and lost weight , he denies GI symptoms, reported lost 10 Ib.
# Obstructive Sleep Apnea
Continue CPAP
DVT proph: Lovenox SQ
Code Status: Full Code
Anticipated Discharge: Within 24 hours
Subjective/Interval History
-
Date of Service: January 17, 2025
Objective Data
-
Labs:
Laboratory Results
01/17/25
02:10
WBC 10.5
Hgb 14.5
Hct 40.8
Plt Count 442 H
Sodium 137
Potassium 4.2
Chloride 97 L
Carbon Dioxide 30
BUN 35 H
Creatinine 1.6 H
Glucose 109 H
Calcium 9.8
Total Bilirubin 0.5
AST 50
ALT 63 H
Alkaline Phosphatase 97
Vital Signs:
Vital Signs
Temp Pulse Resp BP Pulse Ox
36.6 C 70 18 143/76 97
01/17/25 08:00 01/17/25 08:00 01/17/25 02:18 01/17/25 07:54 01/17/25 02:18
I&O
01/16/25 01/17/25 01/18/25
06:59 06:59 06:59
Intake Total 1260 / 1260 680 / 680
Output Total 3300 / 3300 3900 / 3900 775 / 775
Balance -2040 / -2040 -3220 / -3220 -775 / -775
Review of Systems
-
History Source: Patient
All other systems: Not reviewed unless documented
Physical Exam
-
General: Well Developed, Well Nourished, No Apparent Distress, Comfortable and Conversant; Negative Respiratory Distress
HEENT: Normocephalic, Atraumatic, Nose Appears Normal and Ears Appear Normal; Negative Oxygen
Respiratory: Clear to Auscultation and Non Labored Respirations; Negative Accessory Resp Muscle Use
Cardiac: Regular Rhythm and S1/S2
GI: Soft, Nontender, Nondistended and Normal Bowel Sounds
Musculoskeletal: Edema, Right Lower Extrem and Edema, Left Lower Extrem
Skin: Warm and Dry
Neuro: Awake, Alert, Oriented and AO x 3
Psych: Calm and Intact Judgement/Insight
Data Reviewed
-
Labs: Labs Reviewed by me
--- NOTE | 2025-01-17 08:29 | PN.DE.MGMTRT ---
Insulin Management
- -
01/17/2025: Diabetes Management Follow up
Patient admitted with chest/back pain and uncontrolled blood pressure associated with worsening lower extremity swelling for the past several months. PMH: HTN, HLD and T2DM, who presents He notes his PCP started him on losartan/HCTZ but he only
took it one time as it made him urinate too much. Pt was dx with severe acute on chronic HFpEF and L pleural effusion. s/p Thoracentesis - 2 L fluid 01/07. Prior to admission was taking Metformin 1000 mg BID and Mounjaro 10mg Q Friday (started 1
month ago). States he has a 10+ year history of diabetes and sees his primary care provider for care. A1C 6.9%, Cr 1.1 on admission.
Patient is awake alert and oriented, OOB in chair able to discuss diabetes care. States the swelling to his lower legs has improved.
Currently on low corrective insulin AC, Farxiga 10 mg daily and Mounjaro 10 mg administered on Friday ( brought it in from home).
Glucose stable and in range, premeal 134 to 174, @ HS 123, fasting 112 POC this AM, Cr 1.6, eGFR 47.23
Will make no changes to current regimen: Farxiga 10 mg daily and Low corrective AC. Continue to HOLD Metformin due to PAN and new heart failure.
Will cont to follow
Discussed at length with patient action of Farxiga and benefits, patient is agreeable to starting. CM has researched farxiga is $10/ month. Patient states his insurance will change end of month. He requested a 3 month supply prescription for
farxiga be sent to [facility], done 01/12.
Recommended after discharge he test his glucose BID in pattern provided in diabetes education booklet. He verbalized understanding.
Discussed with nurse. Will cont to follow
Diabetes History
- -
Type of Diabetes: 2
Pre-Admission Diabetes Regimen
01/17/25
02:10
Creatinine 1.6 H
Lab Results
Hemoglobin A1c 6.9 % (4.0-5.6) H 01/07/25 02:50
Insulin Pump Settings
IP Diabetes Regimen
01/16/25 01/16/25 01/16/25
12:18 16:49 21:54
Glucose
POC Glucose 174 H 150 H 123 H
01/17/25 01/17/25
02:10 07:19
Glucose 109 H
POC Glucose 112 H
Meal type: Dinner
Meal type: Breakfast
Amount consumed: 100%
Amount consumed: 100%
Patient Education
[2025-01-17] MEDS: FARXIGA 10 MG PO (09:08)
[2025-01-17] MEDS: PROCARDIA XL (EXTENDED RELEASE) 60 MG PO (09:08)
[2025-01-17] MEDS: FLOMAX 0.4 MG PO (09:08)
[2025-01-17] MEDS: CRESTOR 10 MG PO (09:08)
[2025-01-17] MEDS: LOW STRENGTH ASPIRIN 81 MG PO (09:08)
[2025-01-17] MEDS: COREG 25 MG PO ×2 (09:08→20:59)
[2025-01-17] MEDS: LASIX 80 MG PO ×2 (09:08→16:43)
[2025-01-17] MEDS: NOVOLOG FLEXPEN-LOW RESISTANCE SC ×2 (09:09→17:52)
[2025-01-17] MEDS: MIRALAX PO (09:09)
[2025-01-17 11:21] LABS: Glucose - Point of Care 164 mg/dl (70-99)
--- NOTE | 2025-01-17 11:37 | PTOTSP ---
The patient is independent with ambulation and elevations, denied shortness of breath with activity. The patient denies concerns regarding mobility upon return home. No PT needs identified at this time, will sign off.
--- NOTE | 2025-01-17 12:18 | CM ---
Reviewed chart. Met with Mr. Martinez to review discharge plans. He states he is feeling well and maybe able to go home soon. He states prior to admission he resides with his spouse in a two story home with four steps to enter. He states he has a
full flight of steps to get to bedroom/full bathroom. He states he has a powder room on the first floor. He states prior to admission he was independent with ambulation and adls. He states he has a prescription plan and uses [facility]. We
reviewed [facility] and he would like to review with his spouse before making the decision about [facility]. Medical work-up in progress. The discharge plan is to return home with his spouse and [facility] if he is agreeable when medically
stable.
--- NOTE | 2025-01-17 13:29 | W.PN.NEPH.PH ---
Today's Communication / Plan
-
Stable for discharge tomorrow
Maintain current diuretic regimen
Assessment/Plan
-
64 y/o male past medical history of hypertension, hyperlipidemia, and diabetes mellitus who presents with chest/back pain and uncontrolled blood pressure. Patient reports worsning lower extremity for the past several months. He report his blood
pressure has not been well controlled. He notes his PCP started him on losartan/HCTZ but he only took it one time as it made him urinate too much
Renal consult for acute kidney injury creatinine of 2 with a normal baseline 1.1 on admission.
He is status postthoracentesis 2 L on the left.
Presented with a blood pressure over 200 systolic and over 100 diastolic
Chronic NSAID use meloxicam and Advil
Impression.
Acute kidney injury creatinine of 2 with a baseline creatinine 1.1 on admission
Hypertensive urgency/chronic NSAID use meloxicam and Advil
Pleural effusion
Diastolic dysfunction
Obesity
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
Plan.
continue farxiga SGLT2
creatinine at 1.6
may start Entresto when desired
lasix 80mg po BID, may only need daily with PRN BID dosing as OP
likely DKD, no biopsy is required
contraction alkalosis improving
no issues with tramadol from renal perspective
Stable for discharge from renal stent
-
-
Date of Service: January 17, 2025
CC / HPI / ROS
-
Chief Complaint:
Hypertensive urgency
History of Present Illness:
Hypertensive urgency shortness of breath status post IV contrast acute kidney injury
PAN/Cr stable at 1.6
BP high stable
on RA
Na normal
Alkalosis improved to 30
on po lasix for decompensated HFpEF
Review of Systems:
No chest pain or shortness of breath at rest
Weights unchanged
Urine output recorded at 4.5 L
Labs
-
Labs:
WBC 10.5 10^3/uL (4.8-10.8) 01/17/25 02:10
RBC 4.78 10^6/uL (4.70-6.10) 01/17/25 02:10
Hgb 14.5 g/dL (13.0-18.0) 01/17/25 02:10
Hct 40.8 % (39.0-52.0) 01/17/25 02:10
Plt Count 442 10^3/uL (130-400) H 01/17/25 02:10
Sodium 137 mmol/L (135-145) 01/17/25 02:10
Potassium 4.2 mmol/L (3.5-5.1) 01/17/25 02:10
Chloride 97 mmol/L (98-107) L 01/17/25 02:10
Carbon Dioxide 30 mmol/L (22-30) 01/17/25 02:10
BUN 35 mg/dl (9-20) H 01/17/25 02:10
Creatinine 1.6 mg/dL (0.7-1.3) H 01/17/25 02:10
eGFR 47.23 01/17/25 02:10
Glucose 109 mg/dl (70-99) H 01/17/25 02:10
Calcium 9.8 mg/dl (8.4-10.2) 01/17/25 02:10
Wuq-L-Busourwewat Pept 7390 pg/ml 01/06/25 12:01
Albumin 3.5 g/dl (3.5-5.0) 01/17/25 02:10
Physical Exam
-
Vital Signs:
Vital Signs
Temp Pulse Resp BP Pulse Ox
98.4 F 66 18 143/76 98
01/17/25 11:20 01/17/25 11:20 01/17/25 11:20 01/17/25 07:54 01/17/25 11:20
Cardiovascular:: Regular rate and rhythm
Respiratory:: Bilateral: Coarse
Lung Excursion:: Normal
Abdomen:: Nontender and Soft
Bowel Sounds:: Normal
Extremity Edema:: +3: Bilateral:
Mireles Catheter: No
[2025-01-17] MEDS: NOVOLOG FLEXPEN-LOW RESISTANCE 1 UNITS SC (14:02)
[2025-01-17] MEDS: LOVENOX 40 MG SC (16:43)
[2025-01-17 17:07] LABS: Glucose - Point of Care 134 mg/dl (70-99)
[2025-01-17 21:06] LABS: Glucose - Point of Care 126 mg/dl (70-99)
[2025-01-17] MEDS: MELATONIN 5 MG PO (21:46)
[2025-01-17] MEDS: ULTRAM 25 MG PO (21:46)
--- NOTE | 2025-01-18 01:13 | PTCARENOTE ---
Assumed care of patient at 1900. aaox3, ambulating self in the room without issues, denies urinary complaints. SR on the monitor w/ 1st degree AV block, HR 60-70's, BP stable. CYNDI wraps to LE removed at bedtime, pt encouraged on LE elevation. Call
valerio within reach, POC ongoing.
[2025-01-18 04:46] VITALS: BP 128/70
[2025-01-18 04:47] VITALS: BMI 32.7
[2025-01-18] MEDS: TYLENOL 1000 MG PO (04:54)
[2025-01-18 05:47] LABS: Hematocrit 40.2 % (39.0-52.0); Mean Corp Hgb Conc. 34.8 g/dL (33.0-37.0); Mean Corpuscular Volume 86.1 fL (80.0-94.0); Mean Platelet Volume 10.6 fL (7.4-10.4); Platelet Count 438 10^3/uL (130-400); Red Blood Cell Count 4.67 10^6/uL (4.70-6.10); Red Cell Dist. Width 12.9 % (11.5-14.5); White Blood Cell Count 10.3 10^3/uL (4.8-10.8)
[2025-01-18 06:07] LABS: ALT (SGPT) 62 U/L (0-50); AST (SGOT) 47 U/L (17-59); Albumin 3.5 g/dl (3.5-5.0); Alkaline Phosphatase 92 U/L (38-126); Blood Urea Nitrogen 35 mg/dl (9-20); Calcium 9.3 mg/dl (8.4-10.2); Carbon Dioxide 32 mmol/L (22-30); Chloride 95 mmol/L (98-107); Estimated Creatinine Clearance 53 ml/min; Glucose 122 mg/dl (70-99); Potassium 4.1 mmol/L (3.5-5.1); Sodium 136 mmol/L (135-145); Total Bilirubin 0.6 mg/dl (0.2-1.3); eGFR 43.91
[2025-01-18 07:05] VITALS: BP 113/74
[2025-01-18 07:10] LABS: Glucose - Point of Care 147 mg/dl (70-99)
--- NOTE | 2025-01-18 07:52 | W.PN.HOSP.TC ---
Addendum entered and electronically signed by Yoli Beaulieu MD 01/18/25 13:00:
Total DC time 40 minutes
Original Note:
Today's Communication/Plan
-
DC home today
Assessment / Plan
Assessment / Plan
A/P:
# Acute new onset Heart Failure with preserved EF
suspect worsening due to nephrotic syndrome
Echo LVH with LVEF 55 %.
now on PO Lasix 80 mg BID, cont such dose following DC
Monitor Is&Os and Daily Weights
Cont Farxiga
Appreciate cardiology input
# Hypertensive Emergency
s/p nitroglycerin infusion
Added Coreg 25 mg BID
Added Nifedipine, increased to 60 mg QD.
Losartan on hold due to PAN
Normal TSH
PRN hydralazine
# PAN, likely from contrast nephropathy
Creatinine improving: from 2.2 to 1.6, today at 1.7
resumed lasix
No retention on bladder scan
Known urinary hesitancy, he follows with urologist.
Started on Vesicare in OP
Consulted nephrology, appreciate help
# Constipation,
MiraLAX
No abdominal pain
# Left Pleural Effusion
s/p 2 liters thoracentesis, no Pneumothorax post procedure.
Cultures negative, atypical cells are reactive
# Diabetes Mellitus, Type II
# Diabetic neuropathy
c/w current regimen
HgbA1c 6.9
Hold metformin,
Patient is recently on Mounjaro and lost weight
Monitor sugars and continue coverage insulin
Consulted DM educator.
# Advanced osteoarthritis, mostly left knee.
Patient was taking meloxicam daily for left knee prior to planned surgery/replacement per orthopedic
Advised to admit avoid nonsteroidal anti-inflammatory drugs due to tendency for uncontrolled blood pressure and sodium retention.
# Hypokalemia, replaced
# Reactive leukocytosis, resolved, afebrile.
# Obesity due to Excess Calories
Encourage weight loss
Patient is recently on Mounjaro and lost weight , he denies GI symptoms, reported lost 10 Ib.
# Obstructive Sleep Apnea
Continue CPAP
DVT proph: Lovenox SQ
Code Status: Full Code
Anticipated Discharge: Today
Subjective/Interval History
-
Date of Service: January 18, 2025
Objective Data
-
Labs:
Laboratory Results
01/18/25
04:41
WBC 10.3
Hgb 14.0
Hct 40.2
Plt Count 438 H
Sodium 136
Potassium 4.1
Chloride 95 L
Carbon Dioxide 32 H
BUN 35 H
Creatinine 1.7 H
Glucose 122 H
Calcium 9.3
Total Bilirubin 0.6
AST 47
ALT 62 H
Alkaline Phosphatase 92
Vital Signs:
Vital Signs
Temp Pulse Resp BP Pulse Ox
37.0 C 63 18 113/74 95
01/18/25 07:05 01/18/25 07:05 01/18/25 07:05 01/18/25 07:05 01/18/25 07:05
I&O
01/17/25 01/18/25 01/19/25
06:59 06:59 06:59
Intake Total 680 / 680 480 / 480
Output Total 3900 / 3900 3050 / 3050
Balance -3220 / -3220 -2570 / -2570
Review of Systems
-
History Source: Patient
All other systems: Not reviewed unless documented
Physical Exam
-
General: Well Developed, Well Nourished, No Apparent Distress, Comfortable and Conversant; Negative Respiratory Distress
HEENT: Normocephalic, Atraumatic, Nose Appears Normal and Ears Appear Normal; Negative Oxygen
Respiratory: Clear to Auscultation and Non Labored Respirations; Negative Accessory Resp Muscle Use
Cardiac: Regular Rhythm and S1/S2
GI: Soft, Nontender, Nondistended and Normal Bowel Sounds
Musculoskeletal: Edema, Right Lower Extrem (improved ) and Edema, Left Lower Extrem (improved )
Skin: Warm and Dry
Neuro: Awake, Alert, Oriented and AO x 3
Psych: Calm and Intact Judgement/Insight
Data Reviewed
-
Labs: Labs Reviewed by me
--- NOTE | 2025-01-18 08:13 | PN.DE.MGMTRT ---
Insulin Management
- -
01/18/2025: Diabetes Management Follow up
Patient admitted with chest/back pain and uncontrolled blood pressure associated with worsening lower extremity swelling for the past several months. PMH: HTN, HLD and T2DM. He states his PCP started him on losartan/HCTZ but he only took it one
time as it made him urinate too much. Pt was dx with severe acute on chronic HFpEF and L pleural effusion. s/p Thoracentesis - 2 L fluid 01/07. Prior to admission was taking Metformin 1000 mg BID and Mounjaro 10mg Q Friday (started 1 month ago).
States he has a 10+ year history of diabetes and sees his primary care provider for care. A1C 6.9%, Cr 1.1 on admission.
Patient is awake alert and oriented, OOB in chair able to discuss diabetes care. States the swelling to his lower legs has improved.
Currently on low corrective insulin AC, Farxiga 10 mg daily and Mounjaro 10 mg administered on Friday ( brought it in from home).
Glucose stable and in range, premeal 112 to 164, @ HS 123, fasting 122 POC this AM, Cr 1.7, eGFR 43.91
Will make no changes to current regimen: Farxiga 10 mg daily and Low corrective AC. Continue to HOLD Metformin due to PAN and new heart failure.
Will cont to follow
Discussed at length with patient action of Farxiga and benefits, patient is agreeable to starting. CM has researched farxiga is $10/ month. Patient states his insurance will change end of month. He requested a 3 month supply prescription for
farxiga be sent to [facility], done 01/12. Patient reports the 3 month supply has been delivered to his home.
Recommended after discharge he test his glucose BID in pattern provided in diabetes education booklet. He verbalized understanding.
Discussed with nurse. Will cont to follow
Diabetes History
- -
Type of Diabetes: 2
Pre-Admission Diabetes Regimen
01/18/25
04:41
Creatinine 1.7 H
Lab Results
Hemoglobin A1c 6.9 % (4.0-5.6) H 01/07/25 02:50
Insulin Pump Settings
IP Diabetes Regimen
01/17/25 01/17/25 01/17/25
11:20 17:06 21:04
Glucose
POC Glucose 164 H 134 H 126 H
01/18/25 01/18/25
04:41 07:09
Glucose 122 H
POC Glucose 147 H
Meal type: Dinner
Amount consumed: 100%
Patient Education
[2025-01-18] MEDS: NOVOLOG FLEXPEN-LOW RESISTANCE SC ×2 (08:53→12:47)
[2025-01-18] MEDS: MIRALAX PO (08:54)
[2025-01-18] MEDS: FLOMAX 0.4 MG PO (08:55)
[2025-01-18] MEDS: CRESTOR 10 MG PO (08:55)
[2025-01-18] MEDS: LOW STRENGTH ASPIRIN 81 MG PO (08:55)
[2025-01-18] MEDS: PROCARDIA XL (EXTENDED RELEASE) 60 MG PO (08:55)
[2025-01-18] MEDS: FARXIGA 10 MG PO (08:55)
[2025-01-18] MEDS: LASIX 80 MG PO (08:55)
[2025-01-18] MEDS: COREG 25 MG PO (08:55)
--- NOTE | 2025-01-18 09:30 | CM ---
Reviewed chart. Met with Mr. Martinez to review discharge plans. He states he is going home today. We reviewed [facility] and at this time he would like to hold on the [facility]NA Services. He will discuss with his PCP on his next visit. Prior to
admission he resides with his spouse in a two story home with four steps to enter. He has a full flight of steps to get to bedroom/full bathroom. He has a powder room on the first floor. Prior to admission he was independent with ambulation and
adls. He does not have any DME in the home. He has a prescription plan and uses [facility]. Medical work-up in progress. The discharge plan is to return home with his spouse when medically stable.
[2025-01-18 11:36] LABS: Glucose - Point of Care 126 mg/dl (70-99)
[2025-01-18 11:56] VITALS: BP 125/66
--- NOTE | 2025-01-18 12:34 | W.DCSUMMARY ---
Discharge Summary
Discharge Data
Date of Admission: 01/06/25
Date of Discharge: 01/18/25
-
Pending Results: No
Hospital Course
Principal Diagnosis:
Acute new onset Heart Failure with preserved EF
Left Pleural Effusion s/p 2 liters thoracentesis.
Hypertensive Emergency.
Acute kidney injury (PAN), likely from contrast nephropathy
Chronic Diagnoses:�
# Diabetes Mellitus, Type II (HgbA1c 6.9 %)
# Diabetic neuropathy
# Advanced osteoarthritis, mostly left knee.
# Obesity due to Excess Calories
# Obstructive Sleep Apnea, continue CPAP
Consultations:�
Nephrology
Cardiology
Diabetes nurse practitioner
Procedures:�
Left thoracentesis, removed 2 L pleural fluid
Clinical course:�
This is a 64-year-old male, with past medical history as stated above, who presented with chest pain and uncontrolled high blood pressure.
He also reported worsening lower extremity edema for the past several months.
Problem 1:
Acute new onset Heart Failure with preserved EF.
His echo showed an EF of 55%.
He received diuretic while in hospital, and was discharged with PO Lasix 80 mg BID to continue following discharge.
He was also started with Farxiga during this admission which he can continue going forward.
Problem 2:
Left Pleural Effusion s/p 2 liters thoracentesis.
The fluid culture was negative, atypical cells noted likely reactive.
Problem 3:
Hypertensive Emergency.
He received nitroglycerin infusion on admission, which was subsequently discontinued.
He was started with Coreg and was discharged at 25 mg twice daily.
He was also started with nifedipine, and was discharged at 60 mg daily.
His blood pressure has been well-controlled on these medications, at 125/66 at the time of discharge.
Problem 4:
PAN, likely from contrast nephropathy from CT angio on admission.
CT angio was obtained due to his complaint of severe chest pain, there was no aneurysm or dissection noted.
His creatinine improved from 2.2 to 1.7 on the day of discharge.
He can continue with Lasix as stated above.
He can check repeat BMP with result to his PCP in 1 week.
As for the rest of his medical problems, they were stable during his hospital stay.
Discharge Plan
-
Patient Disposition: Home (Routine Discharge)
Discharge Diagnosis/Procedures: New onset Heart Failure with preserved EF;
Hypertensive Emergency (resolved);
Acute kidney injury (possible contrast nephropathy), serum creatinine at 1.7 on discharge (peaked at 2.2)
Condition: Good
Diet: As tolerated, Low Fat, Low Cholesterol, Low Sodium and Restrict fluids to 48 oz
Activity: As tolerated
Driving Restrictions: As prior to admission
Blood Work: CMP in 1 week, result to PCP
Instructions: *PCP/Other [facility] Heart Failure Instructions
Referrals:
Nova Torres MD [Family Provider, [facility]] - in less than 1 week
Additional Discharge Medication Instructions: We have replaced metoprolol to Coreg at 25 mg twice daily;
We have added Nifedipine at 60 mg daily.
We have added Lasix at 80 mg twice daily
We have added Farxiga, ASA, Flomax
Prescriptions:
New
dapagliflozin propanediol [Farxiga] 10 mg Tablet
10 mg PO DAILY Qty: 90 1RF
carvedilol 12.5 mg Tablet
25 mg PO BID Qty: 60 0RF
tamsulosin 0.4 mg Capsule
0.4 mg PO DAILY Qty: 30 0RF
furosemide 80 mg Tablet
80 mg PO BID@0800,1600 Qty: 60 0RF
aspirin 81 mg Tablet,Chewable
81 mg PO DAILY Qty: 30 0RF
nifedipine 60 mg Tablet Extended Release
60 mg PO DAILY Qty: 30 0RF
(DME) blood-glucose meter [Accu-Chek Guide Glucose Meter] Misc
Qty: 1 0RF
Rx Instructions:
As Directed
(DME) Accu-Chek Guide test strips Strip
Qty: 200 0RF
Rx Instructions:
As Directed
(DME) lancets [Accu-Chek Softclix Lancets] Misc
Qty: 200 0RF
Rx Instructions:
As Directed
Continued
Mounjaro 10 mg/0.5 mL Pen Injector
10 mg SC WE
solifenacin [Vesicare] 5 mg Tablet
5 mg PO DAILY
rosuvastatin 10 mg tablet
10 mg PO DAILY
tadalafil 5 mg Tablet
5 mg PO DAILY
Discontinued
metoprolol succinate 50 mg tablet extended release 24 hr
50 mg PO DAILY
meloxicam 15 mg tablet
15 mg PO DAILY
metformin 1,000 mg tablet
1,000 mg PO BID
Discharge Orders:
Discharge Patient (As Directed); Ordered 01/18/25
Ordered By: Yoli Beaulieu
Care Plan Goals
Care Plan Goals:
Problem: Readiness for enhanced knowledge related to diagnosis and treatment plan
Goal: Understand your diagnosis and treatment plan needs, including medications if applicable.
Instructions: Know your diagnosis, underlying causes and treatment plan options, including medications if applicable. Consult with your health care team to learn about your diagnosis and treatment plan, including medications if applicable.
Discharge Date and Time
Discharge Date/Time: 01/18/25 12:49
Print Language: CZECH
--- NOTE | 2025-01-19 13:32 | W.HF.CON ---
Heart Failure
- LV Function
Left ventricular function study result: LV Ejection fraction >/= 50%
Ejection Fraction Percentage: 55
- ARNI
Patient already on ARNI: No
Heart Failure ARNI Not Indicated: LV Ejection Fraction >/= 40%
- ACEI/ARB
Patient already on ACEI/ARB: No
Heart Failure ACEI/ARB Not Indicated: LV Ejection Fraction > 40%
- Beta Kaya
Patient already on Evidence Based Beta Kaya: Yes
- Mineralocorticord Receptor Antagonist
Patient already on MRA: No
Heart Failure MRA Not Indicated: LV Ejection Fraction > 40%
- SGLT-2 Inhibitor
Patient already on SGLT-2 Inhibitor: Yes
- NYHA CHF Classification
NYHA CHF Classification Level: Class III - Symptoms w/ min exertion, interferes w/ nml daily activity
- ACC/AHA Stage
ACC/AHA Stage: Stage C: Symptomatic Heart Failure
--- NOTE | 2025-01-20 09:16 | HFEDUCATE ---
Pt has F/U appt on 01/24/25 at 4:30pm with Dr. Nova Torres. Pt had 72 hour phone call on 01/18/25 from PCP rep Jennie Escobedo at 2:31pm to discuss discharge and make F/U.
== END 2025-01-18 12:49 | disposition home or self-care (01) | DRG 291 ==
LOC: IVU 13:01
PROVIDERS: Internal Medicine; Nurse Practitioner Family; Physician Assistant Medical; Radiology Vascular & Interventional Radiology; Specialist; ADMITTING PHYSICIAN Hospitalist; ATTENDING PHYSICIAN Internal Medicine; CONSULT PHYSICIAN Internal Medicine Cardiovascular Disease; EMERGENCY PHYSICIAN Emergency Medicine; FAMILY PHYSICIAN Family Medicine; OTHER PHYSICIAN Internal Medicine Nephrology
PROC: 5A09357 Assistance with Respiratory Ventilation, Less than 24 Consecutive Hours, Continuous Positive Airway Pressure (ICD-10-PCS; 2025-01-06)
PROC: 0W9B3ZZ Drainage of Left Pleural Cavity, Percutaneous Approach (ICD-10-PCS; 2025-01-07)
DX: I11.0 Hypertensive heart disease with heart failure (principal); I50.31 Acute diastolic (congestive) heart failure; I16.1 Hypertensive emergency; J90 Pleural effusion, not elsewhere classified; I47.10 Supraventricular tachycardia, unspecified; N17.8 Other acute kidney failure; E87.3 Alkalosis; J98.11 Atelectasis; E11.40 Type 2 diabetes mellitus with diabetic neuropathy, unspecified; M17.12 Unilateral primary osteoarthritis, left knee; K59.00 Constipation, unspecified; E87.6 Hypokalemia; E78.00 Pure hypercholesterolemia, unspecified; E66.09 Other obesity due to excess calories; T50.8X5A Adverse effect of diagnostic agents, initial encounter; N14.11 Contrast-induced nephropathy; Y92.239 Unspecified place in hospital as the place of occurrence of the external cause; E11.21 Type 2 diabetes mellitus with diabetic nephropathy; G47.33 Obstructive sleep apnea (adult) (pediatric); D72.829 Elevated white blood cell count, unspecified; I25.10 Atherosclerotic heart disease of native coronary artery without angina pectoris; N40.1 Benign prostatic hyperplasia with lower urinary tract symptoms; R39.11 Hesitancy of micturition; K21.9 Gastro-esophageal reflux disease without esophagitis; Z68.32 Body mass index [BMI] 32.0-32.9, adult; Z87.891 Personal history of nicotine dependence; Z79.84 Long term (current) use of oral hypoglycemic drugs; Z79.85 Long-term (current) use of injectable non-insulin antidiabetic drugs; Z91.199 Patient's noncompliance with other medical treatment and regimen due to unspecified reason; Z90.49 Acquired absence of other specified parts of digestive tract; Z79.1 Long term (current) use of non-steroidal anti-inflammatories (NSAID)
CPT/HCPCS: 88305; 32555; 71045; 71275; 80048; 80053; 80061; 81003; 81015; 82150; 82248; 82570; 82784; 82945; 82962; 83036; 83516; 83615; 83735; 83880; 83986; 84155; 84156; 84157; 84165; 84300; 84443; 84478; 84484; 85025; 85027; 85610; 86038; 86160; 86255; 86334; 87015; 87070; 87205; 88112; 88341; 88342; 89051; 93005; 93306; 93975; 96365; 96366; 96375; 97162; 99285; Q9967

== ENCOUNTER 2025-06-27 23:37 | Inpatient (IN) | payer OTHER, MEDICARE, SELFPAY ==
[2025-06-27 19:21] VITALS: BP 130/58
[2025-06-27 19:52] LABS: Hematocrit 33.6 % (39.0-52.0); Hemoglobin 11.6 g/dL (13.0-18.0); Mean Corp Hgb Conc. 34.5 g/dL (33.0-37.0); Mean Corpuscular Volume 86.2 fL (80.0-94.0); Nucleated Red Blood Cells % 0 % (-); Platelet Count 475 10^3/uL (130-400); Red Cell Dist. Width 12.8 % (11.5-14.5)
[2025-06-27 20:10] LABS: ALT (SGPT) 38 U/L (0-50); AST (SGOT) 32 U/L (17-59); Albumin 3.4 g/dl (3.5-5.0); Alkaline Phosphatase 97 U/L (38-126); Blood Urea Nitrogen 23 mg/dl (9-20); Calcium 8.7 mg/dl (8.4-10.2); Carbon Dioxide 31 mmol/L (22-30); Chloride 93 mmol/L (98-107); Glucose 121 mg/dl (70-99); Potassium 3.7 mmol/L (3.5-5.1); Sodium 131 mmol/L (135-145); Total Protein 5.9 g/dl (6.3-8.2); eGFR 55.09
[2025-06-27 20:11] LABS: COVID-19 Antigen Negative (Negative)
--- NOTE | 2025-06-27 21:52 | ED.GENMED ---
History of Present Illness
General
Chief Complaint: Breathing Problem
Source: patient, records and spouse
Exam Limitations: none
Time Seen by Provider: 06/27/25 21:43
Nursing documentation reviewed up to this point in time: agreed with
History of Present Illness
History of Present Illness:
65-year-old male CHF diabetic non-smoker presents with cough fever fatigue decreased p.o. 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
Past History
Past History
ED Past Medical History: GERD, HTN, Hypercholesterolemia and NIDDM
ED Past Surgical History: Cholecystectomy and Other (Umbilical herniorrhaphy)
Social History
Tobacco: Former smoker
Alcohol: None
Drug: None
Personal:
Living: with family
Employment: Retired
Review of Systems
Review of Systems
All Other Systems: Not applicable
Constitutional: Reports fever and fatigue
Respiratory: Reports cough and trouble breathing; Denies hemoptysis
Cardiac: Reports no symptoms
ABD/GI: Reports no symptoms
Musculoskeletal: Reports no symptoms
Skin: Reports no symptoms
Phy Exam
Physical Exam
Physical Exam:
Physical Exam
General: 65 male looks uncomfortable cough
Neck: Dry lips
Heart: s1/s2 regular rate and rhythm, no murmur. equal radial pulses.
Lungs: Rhonchi in the right
Neuro: alert and oriented. no focal neurological deficits
Skin: no rash
Psychiatric: well kept. interactive and cooperative
Extremities: Nonpitting edema
Scores
Heart Failure Risk
Heart Failure Risk Score: Not Applicable
Course
Orders/Labs/Results
Orders:
Orders
06/27/25 19:26
Electrocardiogram (*1) Urgent
Reason for Study: Shortness of Breath
06/27/25 19:27
EKG- Treatment ONCE
CR Chest - 2 Views Urgent
Comment:
Reason For Exam: SOB
06/27/25 19:39
COVID-19 Antigen Urgent
Source: Nasal Swab
Influenza A+B Rapid Molecular Urgent
TRICIA Source: Nasal Swab
Specimen Description:
06/27/25 19:42
Complete Blood Count/With Diff Urgent
Comprehensive Metabolic Panel Urgent
NT-proBNP Urgent
06/27/25 21:50
Sputum Culture [Respiratory Culture/Gram Stain] Routine
TRICIA Source: Sputum
Specimen Description:
0.9% Sodium Chloride 500 ml [Nss] 500 ml IV BOLUS
Acetaminophen [Tylenol] 650 mg PO NOW STA
CefTRIAXone [Rocephin] 1,000 mg IV NOW STA
Ipratropium/Albuterol Sulfate [Duoneb] 3 ml INH R NOW STA
06/27/25 21:55
O2 Therapy [RESP] Urgent
Titrate/Wean O2 to maintain O2 sat greater than (%): 96
06/27/25 22:00
Blood Culture Q30M
TRICIA Source: Blood/Venous
Specimen Description:
06/27/25 22:30
Blood Culture Q30M
TRICIA Source: Blood/Venous
Specimen Description:
Abnormal Lab Results
06/27/25
19:42
WBC 16.7 H 10^3/uL
(4.8-10.8)
RBC 3.90 L 10^6/uL
(4.70-6.10)
Hgb 11.6 L g/dL
(13.0-18.0)
Hct 33.6 L %
(39.0-52.0)
Plt Count 475 H 10^3/uL
(130-400)
Abs Immat Gran (auto) 0.1 H 10^3/uL
(0-0.05)
Absolute Neuts (auto) 14.5 H 10^3/uL
(1.4-6.5)
Absolute Lymphs (auto) 0.9 L 10^3/uL
(1.2-3.4)
Absolute Monos (auto) 1.1 H 10^3/uL
(0.1-0.6)
Neutrophils % 86.9 H %
(42.2-75.2)
Lymphocytes % 5.2 L %
(20.5-51.1)
Sodium 131 L mmol/L
(135-145)
Chloride 93 L mmol/L
(98-107)
Carbon Dioxide 31 H mmol/L
(22-30)
BUN 23 H mg/dl
(9-20)
Creatinine 1.4 H mg/dL
(0.7-1.3)
Glucose 121 H mg/dl
(70-99)
Total Protein 5.9 L g/dl
(6.3-8.2)
Albumin 3.4 L g/dl
(3.5-5.0)
06/27/25 19:42
06/27/25 19:42
Vital Signs
Initial and Last Documented VS:
Initial Vital Signs
Temp Pulse Resp BP Pulse Ox
99.7 F 79 24 130/58 91
06/27/25 19:21 06/27/25 19:21 06/27/25 19:21 06/27/25 19:21 06/27/25 19:21
Last Documented Vital Signs
Temp Pulse Resp BP Pulse Ox
99.7 F 79 24 130/58 91
06/27/25 19:21 06/27/25 19:21 06/27/25 19:21 06/27/25 19:21 06/27/25 21:54
MDM/Problems Addressed
Differential Diagnosis Includes:
Pneumonia bronchitis influenza less likely heart failure
MDM/Problems Addressed:
Cough shortness of
Chronic conditions affecting care: DM and HTN
Acute Exacerbation and/or Progression of Chronic Illness: DM and HTN
*Radiology
Radiology exam reviewed: preliminary read by ED provider
*Pulse Oximetry
SaO2: 91
Oxygen Mode of Delivery: Room air
Patient hypoxic: yes
*EKG
Interpreted by ED Provider?: Yes
Interpretation: abnormal
Comparison EKG: no comparison EKG present
Rate: normal
Rhythm: sinus
Ischemia: non-specific ST changes
*Production Scheduler Interpretation
Rate: normal
Interpretation: normal
Heart Rate: 78
Rhythm: sinus
*Critical Care Note
Total Time (30-74mins, 75-104mins- exclusive of procedures): Not Applicable
Update Note
Update Note:
Update clinically suspect pneumonia looks like he has it at the right base radiographically developing nebs, fluids Tylenol antibiotics low threshold to admit due to severity of illness hypoxia comorbid conditions
ED Attending Note
-
Portions of this chart may have been created with voice recognition software.� Occasional wrong word or��sound alike� substitutions may have occurred due to the inherent limitations of voice recognition software.
Discharge Plan
Departure
Patient Disposition: Admit
Date of Disposition: 06/27/25
Time of Disposition: 22:20
Admit to: Med/Surg
Presentation/result/management discussed w/ accepting MD/DO: Hospitalist
Patient with high blood pressure during this ER visit?: No
Condition: Fair
Discharge Problem:
Pneumonia, Hypoxia
Prescriptions:
No Action
Mounjaro 10 mg/0.5 mL Pen Injector
10 mg SC WE
solifenacin [Vesicare] 5 mg Tablet
5 mg PO DAILY
rosuvastatin 10 mg tablet
10 mg PO DAILY
tadalafil 5 mg Tablet
5 mg PO DAILY
dapagliflozin propanediol [Farxiga] 10 mg Tablet
10 mg PO DAILY Qty: 90 1RF
carvedilol 12.5 mg Tablet
25 mg PO BID Qty: 60 0RF
tamsulosin 0.4 mg Capsule
0.4 mg PO DAILY Qty: 30 0RF
furosemide 80 mg Tablet
80 mg PO BID@0800,1600 Qty: 60 0RF
aspirin 81 mg Tablet,Chewable
81 mg PO DAILY Qty: 30 0RF
nifedipine 60 mg Tablet Extended Release
60 mg PO DAILY Qty: 30 0RF
(DME) blood-glucose meter [Accu-Chek Guide Glucose Meter] Misc
Qty: 1 0RF
Rx Instructions:
As Directed
(DME) Accu-Chek Guide test strips Strip
Qty: 200 0RF
Rx Instructions:
As Directed
(DME) lancets [Accu-Chek Softclix Lancets] Misc
Qty: 200 0RF
Rx Instructions:
As Directed
Referrals:
Nova Torres MD [Family Provider, Family Practice]
Interventions
Interventions:
*Risk Screen - Suicide Last Done: 06/27/25 19:25
*General Assessment Last Done: 06/27/25 19:25
*ED- Fall Risk Assessment Last Done: 06/27/25 19:25
*ED COVID-19 Vaccine History Last Done: 06/27/25 19:25
*ED Influenza Vaccine History Last Done: 06/27/25 19:25
Discharge Date and Time
Print Language: MACEDONIAN
[2025-06-27 22:03] VITALS: BP 143/69
[2025-06-27 22:05] VITALS: BMI 30.4
[2025-06-27] MEDS: TYLENOL 650 MG PO (22:15)
[2025-06-27] MEDS: DUONEB 3 ML INH (22:17)
[2025-06-27] MEDS: NSS 500 IV (22:18)
[2025-06-27] MEDS: ROCEPHIN 1000 MG IV (22:18)
--- NOTE | 2025-06-27 22:57 | HPS.HSE ---
Family Physician
-
Family Physician: Nova Torres MD
Chief Complaint
-
Cough, Fatigue, SOB
History of Present Illness
Patient is a 65y M with PMH significant for hypertension, DM-II, CKD and CHF who presents to ED complaining of cough, fever and fatigue. History obtained from patient and his at the bedside. Patient began to feel poorly on with
sore throat and fatigue. He has had poor appetite since that time. Cough has been productive of yellow / green mucus. He had a fever at home yesterday to 101. He was seen by his PCP today and noted to have SpO2 in the 80s. He was advised to
present to the ED for further evaluation. 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
Medical History
Past Medical History
Past Medical History: Reports Other
Additional Past Medical History:
Hypertension
HFpEF
CKD III
Diabetes Mellitus, Type II with Neuropathy
Obesity
JOHNSON on CPAP
Past Surgical History: Reports Other
Additional Past Surgical History:
Cholecystectomy
Hernia Repair
Social History
Tobacco: Former Smoker (Previous Cigars)
Alcohol: None
Personal:
Living: With Family
Family History
Family History: Not pertinent
Allergies / Home Medications
Allergies reflects when Allergies were last updated in [facility].
Home Medications with original date entered in [facility]
Allergy/Medication List:
Allergies
Allergy/AdvReac Type Severity Reaction Status Date / Time
No Known Allergies Allergy Verified 01/06/25 07:55
Home Medications
rosuvastatin 10 mg tablet 10 mg PO DAILY 01/06/25
solifenacin 5 mg tablet (Vesicare) 5 mg PO DAILY 01/06/25
tadalafil 5 mg tablet 5 mg PO DAILY 01/06/25
tirzepatide 10 mg/0.5 mL subcutaneous pen injector (Mounjaro) 10 mg SC WE 01/06/25
dapagliflozin propanediol 10 mg tablet (Farxiga) 10 mg PO DAILY #90 tabs 01/12/25
aspirin 81 mg chewable tablet 81 mg PO DAILY #30 tabs 01/18/25
carvedilol 12.5 mg tablet 25 mg (2 x 12.5 mg) PO BID #60 tabs 01/18/25
tamsulosin 0.4 mg capsule 0.4 mg PO DAILY #30 caps 01/18/25
furosemide 80 mg tablet 80 mg PO DAILY 06/27/25
losartan 25 mg tablet 25 mg PO DAILY 06/27/25
Review of Systems
-
History Source: Patient and Family
A 12 point ROS was completed and negative except as noted: Yes
Constitutional: Reports Fever and Fatigue; Denies Chills
EENT: Reports Sore Throat
Respiratory: Reports Cough and Trouble Breathing
Cardiac: Denies Chest Pain or Palpitations
Abdomen/GI: Reports Nausea and Anorexia; Denies Abdominal Pain, Vomiting or Diarrhea
: Denies Dysuria, Frequency or Flank Pain
Musculoskeletal: Reports Edema (improved from prior); Denies Joint Pain
Neurological: Denies Dizzy or Headache
Psych: Denies Depression or Anxiety
Physical Exam
Vital Signs
Vital Signs
Temp Pulse Resp BP Pulse Ox
100.1 F 83 16 143/69 94
06/27/25 22:35 06/27/25 22:15 06/27/25 22:15 06/27/25 22:03 06/27/25 22:15
Physical Exam
General: Other (65y M in no acute distress.)
HEENT: Moist mucous membranes and PERRLA
Respiratory: Other (BS decreased at R base - otherwise clear.)
Cardiac: S1/S2, Regular Rhythm and Murmur (II/ TAWANNA)
GI: Soft, Non Tender, Non Distended and Normal Bowel Sounds
Musculoskeletal: No Clubbing, No Cyanosis and Other (1+ edema at ankles bilaterally.)
Neuro: AO x 3
Laboratory Results
-
06/27/25 19:42
06/27/25 19:42
Laboratory Results
Total Bilirubin 0.7 mg/dl (0.2-1.3) 06/27/25 19:42
AST 32 U/L (17-59) 06/27/25 19:42
ALT 38 U/L (0-50) 06/27/25 19:42
Alkaline Phosphatase 97 U/L (38-126) 06/27/25 19:42
Impression/Plan
-
A/P: Patient is a 65y M with PMH significant for hypertension, DM-II, CKD and CHF who presents to ED complaining of 5 days of cough, fever at home and general fatigue / malaise.
Bronchitis > Pneumonia
Acute Hypoxemic Respiratory Insufficiency secondary to the above
- Admit for further evaluation and treatment.
- SpO2 here around 90% on room air, fever, productive cough, etc.
- CXR unremarkable at present.
- Abx with ceftriaxone / doxycycline for now.
- Supportive care including nebs, mucolytics, O2, etc.
- Follow for clinical improvement.
Benign Hypertension
- Stable. Continue home med regimen with holding parameters.
DM-II
- Stable. Continue Farxiga.
- Follow glucose and cover with SSI as needed.
- Update A1C.
Chronic HFpEF
- Stable. Edema nd weight decreased from prior admission.
- No gross evidence of significant volume overload by exam.
- Continue current med regimen / diuretic dosing.
- Follow I/Os, daily weights, etc.
CKD III
- Stable. Renal function is at / near known baseline.
- Follow for changes.
Mild Hyponatremia
- Follow for improvement with usual fluid restriction, diuretics, etc.
BPH
- Stable. On multiple medications including daily Cialis.
- Hold Vesicare for now.
- Bladder scan protocol.
JOHNSON on CPAP
- Continue nightly CPAP.
Obesity due to excess calories
- Weight decreased from prior admission.
- Continue efforts at healthy diet / exercise / etc.
DVT Prophylaxis: Lovenox
Code Status: Full
[2025-06-27 23:00] VITALS: BP 152/59
[2025-06-27] MEDS: COREG 25 MG PO (23:15)
[2025-06-28] VITALS: BP 126/59
--- NOTE | 2025-06-28 01:15 | PTCARENOTE ---
Patient received from ED via stretcher. Patient walked into room with no assistive devices. Patient AAOx3, vital signs stable, and no complaint of pain. Patient oriented to room and call valerio within reach.
[2025-06-28 01:30] VITALS: BP 112/46; BMI 29.8
[2025-06-28 01:49] VITALS: BMI 29.8
[2025-06-28 06:00] VITALS: BMI 29.5
[2025-06-28 07:20] VITALS: BP 148/66
[2025-06-28 07:49] LABS: Glucose - Point of Care 118 mg/dl (70-99)
[2025-06-28 07:56] LABS: Hematocrit 32.4 % (39.0-52.0); Hemoglobin 10.8 g/dL (13.0-18.0); Mean Corp Hgb Conc. 33.3 g/dL (33.0-37.0); Mean Corpuscular Volume 91.3 fL (80.0-94.0); Platelet Count 445 10^3/uL (130-400); Red Cell Dist. Width 12.7 % (11.5-14.5)
[2025-06-28 08:27] LABS: ALT (SGPT) 53 U/L (0-50); AST (SGOT) 46 U/L (17-59); Albumin 3.2 g/dl (3.5-5.0); Alkaline Phosphatase 98 U/L (38-126); Blood Urea Nitrogen 22 mg/dl (9-20); Calcium 8.4 mg/dl (8.4-10.2); Carbon Dioxide 29 mmol/L (22-30); Chloride 96 mmol/L (98-107); Estimated Creatinine Clearance 55 ml/min; Glucose 116 mg/dl (70-99); Sodium 133 mmol/L (135-145); Total Protein 5.6 g/dl (6.3-8.2); eGFR 55.09
[2025-06-28 08:31] LABS: Potassium 3.6 mmol/L (3.5-5.1)
[2025-06-28] MEDS: COREG 25 MG PO ×2 (09:01→20:11)
[2025-06-28] MEDS: VIBRAMYCIN 100 MG PO ×2 (09:01→20:11)
[2025-06-28] MEDS: MUCINEX 1200 MG PO (09:02)
[2025-06-28] MEDS: FARXIGA 10 MG PO (09:02)
[2025-06-28] MEDS: LASIX 80 MG PO (09:02)
[2025-06-28] MEDS: CRESTOR 10 MG PO (09:03)
[2025-06-28] MEDS: FLOMAX 0.4 MG PO (09:03)
[2025-06-28] MEDS: COZAAR 25 MG PO (09:03)
[2025-06-28] MEDS: LOW STRENGTH ASPIRIN 81 MG PO (09:06)
[2025-06-28 09:33] LABS: Glycohemoglobin (HgbA1c) 6.0 % (4.0-5.9)
--- NOTE | 2025-06-28 09:43 | CM ---
CM reviewed chart, patient seen bedside, initial assessment completed.
Patient is a 65 year old Male with PMH significant for hypertension, DM-II, CKD and CHF who presents to ED complaining of cough, fever and fatigue.
Patient resides with his in a two story home, few steps to enter.
Patient is independent with ADLS/IADLs, denies DME, VN/SNF hx.
Patient currently on O2- does not wear home O2.
PCP Nova Torres, Pharmacy [facility] [address] Patient confirms prescription coverage.
Patient denies insecurities at home.
CM will continue to follow for all d/c needs.
Plan; home no needs anticipated
[2025-06-28 11:24] LABS: Glucose - Point of Care 140 mg/dl (70-99)
[2025-06-28] MEDS: ROBITUSSIN DM 5 ML PO ×2 (12:30→18:36)
--- NOTE | 2025-06-28 13:35 | W.PN.HOSP.TC ---
Today's Communication/Plan
-
Empiric antibiotics
Cough suppressants
Currently no indication for systemic or inhaled steroids
Short acting bronchodilators
Volume status compensated only with mild peripheral edema but no evidence of gross volume overload on exam. Continue preadmission diuretic regimen
Wean off O2 as tolerates
Assessment / Plan
Assessment / Plan
A/P: Patient is a 65y M with PMH significant for hypertension, DM-II, CKD and CHF who presents to ED complaining of 5 days of cough, fever at home and general fatigue / malaise.
Bronchitis > Pneumonia
Acute Hypoxemic Respiratory Insufficiency secondary to the above
COVID-negative.
Influenza negative
- SpO2 here around 90% on room air, fever, productive cough, etc.
- CXR unremarkable at present.
- Abx with ceftriaxone / doxycycline for now.
- Supportive care including nebs, mucolytics, O2, etc.
- Follow for clinical improvement.
Benign Hypertension
- Stable. Continue home med regimen with holding parameters.
DM-II
- Stable. Continue Farxiga.
- Follow glucose and cover with SSI as needed.
- Update A1C.
Chronic HFpEF
- Stable. Edema nd weight decreased from prior admission.
- No gross evidence of significant volume overload by exam.
- Continue current med regimen / diuretic dosing.
- Follow I/Os, daily weights, etc.
CKD III
- Stable. Renal function is at / near known baseline.
- Follow for changes.
Mild Hyponatremia
- Follow for improvement with usual fluid restriction, diuretics, etc.
BPH
- Stable. On multiple medications including daily Cialis.
- Hold Vesicare for now.
- Bladder scan protocol.
JOHNSON on CPAP
- Continue nightly CPAP.
Obesity due to excess calories
- Weight decreased from prior admission.
- Continue efforts at healthy diet / exercise / etc.
DVT Prophylaxis: Lovenox
Code Status: Full
Anticipated Discharge: 24 - 48 hours
Subjective/Interval History
-
Date of Service: June 28, 2025
Objective Data
-
Labs:
Laboratory Results
06/28/25
07:05
WBC 16.1 H
Hgb 10.8 L
Hct 32.4 L
Plt Count 445 H
Sodium 133 L
Potassium 3.6
Chloride 96 L
Carbon Dioxide 29
BUN 22 H
Creatinine 1.4 H
Glucose 116 H
Calcium 8.4
Total Bilirubin 0.6
AST 46
ALT 53 H
Alkaline Phosphatase 98
Vital Signs:
Vital Signs
Temp Pulse Resp BP Pulse Ox
99.5 F 79 18 148/66 96
06/28/25 07:20 06/28/25 07:20 06/28/25 07:20 06/28/25 07:20 06/28/25 07:20
I&O
06/27/25 06/28/25 06/29/25
06:59 06:59 06:59
Intake Total 480 / 480
Balance 480 / 480
Physical Exam
-
General: Well Developed and No Apparent Distress
HEENT: Normocephalic, Atraumatic and Moist Mucous Membranes
Respiratory: Clear to Auscultation
Cardiac: Regular Rhythm and S1/S2; Negative Murmur, Rub or Gallop
GI: Soft, Nontender, Nondistended and Normal Bowel Sounds; Negative Organomegaly
Rectal: Deferred by Provider
Musculoskeletal: No Clubbing, No Cyanosis, No Edema and Other (Bilateral pitting edema)
Skin: Negative Rash
Neuro: Nonfocal/Grossly Intact
[2025-06-28 14:59] VITALS: BP 124/57
[2025-06-28 15:59] LABS: Glucose - Point of Care 148 mg/dl (70-99)
[2025-06-28] MEDS: LOVENOX 40 MG SC (16:26)
[2025-06-28] MEDS: TYLENOL 650 MG PO (18:37)
[2025-06-28 20:08] VITALS: BP 142/65
[2025-06-28 21:16] LABS: Glucose - Point of Care 167 mg/dl (70-99)
[2025-06-28] MEDS: ROCEPHIN 1000 MG IV (21:24)
[2025-06-28] MEDS: STERILE WATER FOR INJECTION 10 ML IV (21:24)
[2025-06-28 23:12] VITALS: BP 139/67
--- NOTE | 2025-06-29 03:08 | DOWNTIME ---
There was a [facility] Client Transplant Registered Nurse Downtime on 06/29/2025 from 0100 to 06/29/2025 at 0255. Downtime documentation of patient's care, including medication administrations, has been reconciled in the electronic record per guidelines. Refer to the
patient's paper chart under the miscellaneous tab to see printed paper medication records and downtime forms.
[2025-06-29 06:00] VITALS: BMI 29.9
[2025-06-29] MEDS: ROBITUSSIN DM 5 ML PO ×2 (06:33→12:36)
[2025-06-29] MEDS: TYLENOL 650 MG PO (06:33)
[2025-06-29 06:49] LABS: Hematocrit 30.3 % (39.0-52.0); Hemoglobin 10.3 g/dL (13.0-18.0); Mean Corp Hgb Conc. 34.0 g/dL (33.0-37.0); Mean Corpuscular Volume 87.3 fL (80.0-94.0); Nucleated Red Blood Cells % 0 % (-); Platelet Count 438 10^3/uL (130-400); Red Cell Dist. Width 12.9 % (11.5-14.5)
[2025-06-29 07:10] VITALS: BP 138/60
[2025-06-29 07:13] LABS: Blood Urea Nitrogen 29 mg/dl (9-20); Calcium 8.5 mg/dl (8.4-10.2); Carbon Dioxide 28 mmol/L (22-30); Chloride 94 mmol/L (98-107); Estimated Creatinine Clearance 51 ml/min; Glucose 106 mg/dl (70-99); Potassium 3.5 mmol/L (3.5-5.1); Sodium 129 mmol/L (135-145); eGFR 50.71
[2025-06-29 07:32] LABS: Glucose - Point of Care 129 mg/dl (70-99)
[2025-06-29] MEDS: LASIX 80 MG PO (08:17)
[2025-06-29] MEDS: COZAAR 25 MG PO (08:17)
[2025-06-29] MEDS: CRESTOR 10 MG PO (08:17)
[2025-06-29] MEDS: VIBRAMYCIN 100 MG PO (08:17)
[2025-06-29] MEDS: LOW STRENGTH ASPIRIN 81 MG PO (08:17)
[2025-06-29] MEDS: FARXIGA 10 MG PO (08:17)
[2025-06-29] MEDS: FLOMAX 0.4 MG PO (08:17)
[2025-06-29] MEDS: COREG 25 MG PO (08:18)
--- NOTE | 2025-06-29 10:20 | CM ---
CM reviewed chart, care ongoing.
Patient seen in chair, no longer on O2.
No needs anticipated, CM will continue to follow.
Plan; home no needs anticipated
[2025-06-29 11:47] LABS: Glucose - Point of Care 123 mg/dl (70-99)
--- NOTE | 2025-06-29 12:21 | W.DS.TRANS ---
DC Summary - [employer]
-
Discharge Instructions:
Discharge Diagnosis/Procedures Acute bronchitis
Diet Regular
Blood Work BMP in one week
Instructions:
Stand-Alone Forms: Return to Work
Changes to Home Medications: Yes
Discharge Medications:
DC Medications w/original date entered in [facility]
rosuvastatin 10 mg tablet 10 mg PO DAILY High Cholesterol 01/06/25
solifenacin 5 mg tablet (Vesicare) 5 mg PO DAILY OAB 01/06/25
tadalafil 5 mg tablet 5 mg PO DAILY Phosphodiesterase-5 Enzym 01/06/25
tirzepatide 10 mg/0.5 mL subcutaneous pen injector (Mounjaro) 10 mg SC WE Diabetes 01/06/25
dapagliflozin propanediol 10 mg tablet (Farxiga) 10 mg PO DAILY #90 tabs 01/12/25
aspirin 81 mg chewable tablet 81 mg PO DAILY #30 tabs 01/18/25
carvedilol 12.5 mg tablet 25 mg (2 x 12.5 mg) PO BID #60 tabs 01/18/25
tamsulosin 0.4 mg capsule 0.4 mg PO DAILY #30 caps 01/18/25
furosemide 80 mg tablet 80 mg PO DAILY Fluid Retention/Swelling 06/27/25
losartan 25 mg tablet 25 mg PO DAILY Blood Pressure 06/27/25
albuterol sulfate 90 mcg/actuation aerosol inhaler (Ventolin HFA) 2 puff inhalation Q6H PRN shortness of breath or wheezing #6.7 grams 06/29/25
dextromethorphan-guaifenesin 10 mg-100 mg/5 mL oral syrup 5 ml PO Q6HPRN PRN cough #500 mL 06/29/25
doxycycline hyclate 100 mg capsule 100 mg PO Q12 #8 caps 06/29/25
Home Medication Changes
Antibiotics, muculitics amd inhaled ENID
Pending Results: No
--- NOTE | 2025-06-29 13:10 | PTCARENOTE ---
Patient for discharge to home. IV removed. Discharge instructions and medications reviewed by this RN, with patient. Ride will be arriving at 2 pm. Patient eating lunch here, while he waits.
[2025-06-29 13:57] VITALS: BP 142/63
== END 2025-06-29 14:00 | disposition home or self-care (01) | DRG 202 ==
LOC: 4 WEST ACU 23:37
PROVIDERS: ADMITTING PHYSICIAN Hospitalist; ATTENDING PHYSICIAN Internal Medicine; EMERGENCY PHYSICIAN Emergency Medicine; FAMILY PHYSICIAN Family Medicine
DX: J20.9 Acute bronchitis, unspecified (principal); E87.1 Hypo-osmolality and hyponatremia; I13.0 Hypertensive heart and chronic kidney disease with heart failure and stage 1 through stage 4 chronic kidney disease, or unspecified chronic kidney disease; I50.32 Chronic diastolic (congestive) heart failure; N18.31 Chronic kidney disease, stage 3a; R09.02 Hypoxemia; E11.22 Type 2 diabetes mellitus with diabetic chronic kidney disease; E11.40 Type 2 diabetes mellitus with diabetic neuropathy, unspecified; Z68.29 Body mass index [BMI] 29.0-29.9, adult; N40.0 Benign prostatic hyperplasia without lower urinary tract symptoms; E66.09 Other obesity due to excess calories; G47.33 Obstructive sleep apnea (adult) (pediatric); Z11.52 Encounter for screening for COVID-19; Z87.891 Personal history of nicotine dependence
CPT/HCPCS: 71046; 80048; 80053; 82248; 82962; 83036; 83605; 83880; 85025; 85027; 87040; 87070; 87205; 87502; 87811; 93005; 94640; 96374; 99285